=== PATIENT | female | born 1955 | race American Indian/Alaskan Native ===

== ENCOUNTER 2016-02-05 18:32 | Inpatient (IN) | payer MEDICARE ==
--- NOTE | 2016-02-05 18:51 | Emergency Department Report ---
ED General Adult HPI - General Chief complaint: Chest Pain Stated complaint: CHEST PAIN/WEAKNESS Time Seen by Provider: 02/05/16 18:47 Source: patient, EMS, RN notes reviewed, old records reviewed Mode of arrival: Stretcher Limitations: No Limitations - History of Present Illness Initial comments: This is a 60-year-old female, previously unknown to me. Has a history of nonischemic cardiomyopathy, cardiac defibrillator, end-stage renal disease on dialysis. Patient is brought to the hospital by EMS. Patient complains of chest pain. The chest pain is central. It radiates to the back. It is associated with shortness of breath. There is no vomiting. Patient also describes watery diarrhea. No irritative or obstructive urinary symptoms. The patient was seen and evaluated by cardiology for similar symptoms in the beginning of the month. They recommended no further ischemic workup, "in the absence of angina or chest pain." Patient also had an echocardiogram while she was in the hospital. -: Gradual Location: chest Consistency: intermittent Improves with: none Associated Symptoms: chest pain, cough, shortness of breath - Related Data Home Medications Medication Instructions Recorded Confirmed Last Taken Aspirin [Aspirin TAB] 325 mg PO DAILY 06/02/14 01/09/16 01/08/16 325 MG Carvedilol [Coreg] 25 mg PO BID 06/02/14 01/09/16 01/08/16 25 MG Lovastatin [Altoprev] 40 mg PO DAILY 06/02/14 01/09/16 01/08/16 40 MG Previous Rx's Medication Instructions Recorded Last Taken Type ISOSORBIDE MONOnitrate [Imdur ER] 60 mg PO QDAY #30 tablet 01/11/16 Unknown Rx Allergies Allergy/AdvReac Type Severity Reaction Status Date / Time No Known Allergies Allergy Verified 06/02/14 09:28 ED Review of Systems ROS: Stated complaint: CHEST PAIN/WEAKNESS Other details as noted in HPI Constitutional: malaise. denies: fever Eyes: denies: eye discharge ENT: denies: epistaxis Cardiovascular: chest pain Gastrointestinal: diarrhea Musculoskeletal: denies: back pain Skin: denies: lesions Neurological: denies: numbness Psychiatric: anxiety ED Past Medical Hx - Past Medical History Previous Medical History?: Yes Hx Hypertension: Yes Hx CVA: Yes (2013) Hx Congestive Heart Failure: Yes Hx Diabetes: Yes Hx Renal Disease: Yes (ESRD w/ HD ,,Thu) Hx Sickle Cell Disease: No Hx Asthma: Yes Hx COPD: No Hx Dementia: Yes Hx HIV: No - Surgical History Past Surgical History?: Yes Hx Internal Defibrillator: Yes Additional Surgical History: RUE A/V Graft. right arm surgery to attempt dialysis access, not successful - Social History Smoking Status: Never Smoker - Medications Home Medications: Home Medications Medication Instructions Recorded Confirmed Last Taken Type Aspirin [Aspirin TAB] 325 mg PO DAILY 06/02/14 01/09/16 01/08/16 History 325 MG Carvedilol [Coreg] 25 mg PO BID 06/02/14 01/09/16 01/08/16 History 25 MG Lovastatin [Altoprev] 40 mg PO DAILY 06/02/14 01/09/16 01/08/16 History 40 MG ISOSORBIDE MONOnitrate [Imdur ER] 60 mg PO QDAY #30 tablet 01/11/16 Unknown Rx ED Physical Exam - General Limitations: No Limitations General appearance: alert, in no apparent distress - Head Head exam: Present: atraumatic, normocephalic - Eye Eye exam: Present: normal appearance, EOMI. Absent: nystagmus - ENT ENT exam: Present: normal exam, normal orophraynx, mucous membranes moist - Neck Neck exam: Present: normal inspection, full ROM. Absent: tenderness, meningismus - Respiratory Respiratory exam: Present: normal lung sounds bilaterally. Absent: respiratory distress, wheezes, rales, rhonchi, stridor, chest wall tenderness - Cardiovascular Cardiovascular Exam: Present: regular rate, normal rhythm, normal heart sounds. Absent: bradycardia, tachycardia, irregular rhythm, systolic murmur, diastolic murmur, rubs, gallop - GI/Abdominal GI/Abdominal exam: Present: soft, normal bowel sounds. Absent: distended, tenderness, guarding, rebound, rigid, pulsatile mass - Extremities Exam Extremities exam: Present: normal inspection, full ROM, normal capillary refill , other (left upper extremity AV fistula, appropriate thrill.). Absent: tenderness, pedal edema, joint swelling, calf tenderness - Back Exam Back exam: Present: normal inspection, full ROM. Absent: tenderness, CVA tenderness (R), CVA tenderness (L), muscle spasm, paraspinal tenderness, vertebral tenderness - Neurological Exam Neurological exam: Present: alert, oriented X3, other (Extraocular movements intact. Tongue midline. No facial droop. Facial sensation intact to light touch in the V1, V2, V3 distribution bilaterally. 5 and 5 strength in 4 extremities.. Sensation is intact to light touch in 4 extremities.). Absent: motor sensory deficit - Psychiatric Psychiatric exam: Present: normal affect, normal mood - Skin Skin exam: Present: warm, dry, intact, normal color. Absent: rash ED Course Vital Signs 02/05/16 02/05/16 02/05/16 18:39 18:52 18:56 Temperature 98.7 F 99.3 F Pulse Rate 81 77 Respiratory 20 20 Rate Blood Pressure 162/118 Blood Pressure 241/100 [Left] O2 Sat by Pulse 98 98 98 Oximetry 02/05/16 02/05/16 02/05/16 19:00 19:34 19:53 Temperature Pulse Rate 78 80 Respiratory 21 30 H 20 Rate Blood Pressure 232/106 Blood Pressure [Left] O2 Sat by Pulse 98 97 98 Oximetry 02/05/16 02/05/16 02/05/16 20:50 21:00 22:00 Temperature Pulse Rate Respiratory Rate Blood Pressure 232/106 232/106 202/96 Blood Pressure [Left] O2 Sat by Pulse 97 97 98 Oximetry 02/05/16 02/05/16 02/05/16 22:03 22:07 22:09 Temperature Pulse Rate 80 80 72 Respiratory 18 Rate Blood Pressure 202/96 202/96 198/80 Blood Pressure [Left] O2 Sat by Pulse Oximetry 02/05/16 22:23 Temperature Pulse Rate 77 Respiratory Rate Blood Pressure 185/70 Blood Pressure [Left] O2 Sat by Pulse Oximetry - Reevaluation(s) Reevaluation #1: 02/05/16 22:08 Differential diagnosis: Acute coronary syndrome, GERD, gastritis, hypertensive urgency, pulmonary embolus, end-stage renal disease Assessment and plan: 60-year-old female who is hypertensive with chest pain, seen by cardiology for similar symptoms beginning of month. Apparently had "negative cath at [facility] in 2012." D-dimer is elevated. Patient was recently admitted to the hospital, therefore at risk for pulmonary embolus. Nuclear medicine study is pending. Hydralazine is ordered. Nitroglycerin glycerin assorted. Patient complains of diarrhea, which is similar to her prior complaints at the beginning of the month, however has not produced any diarrhea while in the emergency department thus far. Reevaluation #2: 02/05/16 22:21 Patient now states she has not had dialysis for over a week, and she reports that one of the reason she came to the ER to get dialysis. Her intermediate project manager is paged. She is still hypertensive. Labetalol ordered. Patient going to nuclear medicine study Reevaluation #3: 02/06/16 00:48 Nuclear medicine low probability study. Troponin chronic, most likely related to renal insufficiency. Aspirin ordered. Dr. Crandall accepts the patient to her service. ED Medical Decision Making - Lab Data Result diagrams: 02/05/16 20:44 02/05/16 20:44 Vital Signs 02/05/16 02/05/16 02/05/16 18:39 18:52 18:56 Temperature 98.7 F 99.3 F Pulse Rate 81 77 Respiratory 20 20 Rate Blood Pressure 162/118 Blood Pressure 241/100 [Left] O2 Sat by Pulse 98 98 98 Oximetry 02/05/16 02/05/16 19:00 19:53 Temperature Pulse Rate 78 Respiratory 21 20 Rate Blood Pressure 232/106 Blood Pressure [Left] O2 Sat by Pulse 98 98 Oximetry Lab Results 02/05/16 02/05/16 02/05/16 Range/Units 20:24 20:44 20:44 WBC 7.2 (4.5-11.0) K/mm3 RBC 3.75 (3.65-5.03) M/mm3 Hgb 9.9 L (10.1-14.3) gm/dl Hct 30.5 (30.3-42.9) % MCV 81 (79-97) fl MCH 26 L (28-32) pg MCHC 32 (30-34) % RDW 15.3 H (13.2-15.2) % Plt Count 128 L (140-440) K/mm3 Lymph % (Auto) 21.9 (13.4-35.0) % [place] % (Auto) 11.6 H (0.0-7.3) % Eos % (Auto) 5.3 H (0.0-4.3) % Baso % (Auto) 0.8 (0.0-1.8) % Lymph # 1.6 (1.2-5.4) K/mm3 [place] # 0.8 (0.0-0.8) K/mm3 Eos # 0.4 (0.0-0.4) K/mm3 Baso # 0.1 (0.0-0.1) K/mm3 Seg Neutrophils % 60.4 (40.0-70.0) % Seg Neutrophils # 4.3 (1.8-7.7) K/mm3 PT 14.1 (12.2-14.9) Sec. INR 1.10 (0.87-1.13) APTT 35.8 (24.2-36.6) Sec. D-Dimer 939.16 H (0-234) ng/mlDDU Sodium (137-145) mmol/L Potassium (3.6-5.0) mmol/L Chloride (98-107) mmol/L Carbon Dioxide (22-30) mmol/L Anion Gap mmol/L BUN (7-17) mg/dL Creatinine (0.7-1.2) mg/dL Estimated GFR ml/min BUN/Creatinine Ratio % Glucose (65-100) mg/dL Calcium (8.4-10.2) mg/dL Magnesium (1.7-2.3) mg/dL Total Bilirubin (0.1-1.2) mg/dL AST (5-40) units/L ALT (7-56) units/L Alkaline Phosphatase (35-129) units/L Troponin T (0.00-0.029) ng/mL NT-Pro-B Natriuret Pep (0-900) pg/mL Total Protein (6.3-8.2) g/dL Albumin (3.9-5) g/dL Albumin/Globulin Ratio % Triglycerides (2-149) mg/dL Cholesterol (50-199) mg/dL LDL Cholesterol Direct (50-130) mg/dL HDL Cholesterol (40-59) mg/dL Cholesterol/HDL Ratio % Urine Color Yellow (Yellow) Urine Turbidity Clear (Clear) Urine pH 6.0 (5.0-7.0) Ur Specific [place] 1.014 (1.003-1.030) Urine Protein 100 mg/dl (Negative) mg/dL Urine Glucose (UA) Neg (Negative) mg/dL Urine Ketones Neg (Negative) mg/dL Urine Blood Sm (Negative) Urine Nitrite Neg (Negative) Urine Bilirubin Neg (Negative) Urine Urobilinogen < 2.0 (<2.0) mg/dL Ur Leukocyte Esterase Neg (Negative) Urine WBC (Auto) 1.0 (0.0-6.0) /HPF Urine RBC (Auto) 2.0 (0.0-6.0) /HPF U Epithel Cells (Auto) 3.0 (0-13.0) /HPF 02/05/16 Range/Units 20:44 WBC (4.5-11.0) K/mm3 RBC (3.65-5.03) M/mm3 Hgb (10.1-14.3) gm/dl Hct (30.3-42.9) % MCV (79-97) fl MCH (28-32) pg MCHC (30-34) % RDW (13.2-15.2) % Plt Count (140-440) K/mm3 Lymph % (Auto) (13.4-35.0) % [place] % (Auto) (0.0-7.3) % Eos % (Auto) (0.0-4.3) % Baso % (Auto) (0.0-1.8) % Lymph # (1.2-5.4) K/mm3 [place] # (0.0-0.8) K/mm3 Eos # (0.0-0.4) K/mm3 Baso # (0.0-0.1) K/mm3 Seg Neutrophils % (40.0-70.0) % Seg Neutrophils # (1.8-7.7) K/mm3 PT (12.2-14.9) Sec. INR (0.87-1.13) APTT (24.2-36.6) Sec. D-Dimer (0-234) ng/mlDDU Sodium 142 (137-145) mmol/L Potassium 3.3 L (3.6-5.0) mmol/L Chloride 103.7 (98-107) mmol/L Carbon Dioxide 19 L (22-30) mmol/L Anion Gap 23 mmol/L BUN 55 H (7-17) mg/dL Creatinine 6.5 H (0.7-1.2) mg/dL Estimated GFR 8 ml/min BUN/Creatinine Ratio 8.46 % Glucose 90 (65-100) mg/dL Calcium 8.3 L (8.4-10.2) mg/dL Magnesium 2.0 (1.7-2.3) mg/dL Total Bilirubin 0.4 (0.1-1.2) mg/dL AST 20 (5-40) units/L ALT 16 (7-56) units/L Alkaline Phosphatase 105 (35-129) units/L Troponin T 0.077 H (0.00-0.029) ng/mL NT-Pro-B Natriuret Pep > 07826 H (0-900) pg/mL Total Protein 7.0 (6.3-8.2) g/dL Albumin 3.5 L (3.9-5) g/dL Albumin/Globulin Ratio 1.0 % Triglycerides 96 (2-149) mg/dL Cholesterol 135 (50-199) mg/dL LDL Cholesterol Direct 78 (50-130) mg/dL HDL Cholesterol 38 L (40-59) mg/dL Cholesterol/HDL Ratio 3.55 % Urine Color (Yellow) Urine Turbidity (Clear) Urine pH (5.0-7.0) Ur Specific [place] (1.003-1.030) Urine Protein (Negative) mg/dL Urine Glucose (UA) (Negative) mg/dL Urine Ketones (Negative) mg/dL Urine Blood (Negative) Urine Nitrite (Negative) Urine Bilirubin (Negative) Urine Urobilinogen (<2.0) mg/dL Ur Leukocyte Esterase (Negative) Urine WBC (Auto) (0.0-6.0) /HPF Urine RBC (Auto) (0.0-6.0) /HPF U Epithel Cells (Auto) (0-13.0) /HPF - EKG Data 02/05/16 22:10 normal sinus, 76 bpm, left axis deviation, prolonged QTC at 483 ms, motion artifact noted, abnormal EKG, not morphologically consistent with STEMI, nonspecific T-wave abnormalities. - Radiology Data Radiology results: image reviewed interpreted by me: One view chest x-ray demonstrates cardiomegaly, pulmonary vascular congestion, left-sided AICD device. Critical care attestation.: If time is entered above; I have spent that time in minutes in the direct care of this critically ill patient, excluding procedure time. ED Disposition Clinical Impression: ESRD (end stage renal disease), Elevated troponin Chest pain Qualifiers: Chest pain type: unspecified Qualified Code(s): R07.9 - Chest pain, unspecified Disposition: OP ADMITTED IP TO THIS HOSP Is pt being admited?: Yes Does the pt Need Aspirin: Yes Condition: Stable
[2016-02-05 20:46] LABS: Bilirubin,Urine NEG (Negative); Blood,Urine SM (Negative); Ketones,Urine NEG (Negative); Leukocyte Esterase,Urine NEG (Negative); Nitrite,Urine NEG (Negative); Urobilinogen,Urine < 2.0 mg/dL (<2.0)
[2016-02-05] MEDS ORDERED: TYLENOL PO ONE (20:57)
[2016-02-05 21:21] LABS: Basophils % (Auto) 0.8 % (0.0-1.8); Eosinophils % (Auto) 5.3 % (0.0-4.3); Hematocrit 30.5 % (30.3-42.9); Hemoglobin 9.9 gm/dl (10.1-14.3); Mean Corpuscular HGB Conc 32 % (30-34); Mean Corpuscular Hemoglobin 26 pg (28-32); Mean Corpuscular Volume 81 fl (79-97); Platelet Count 128 K/mm3 (140-440); Red Blood Count 3.75 M/mm3 (3.65-5.03); Red Cell Distribution Width 15.3 % (13.2-15.2); White Blood Count 7.2 K/mm3 (4.5-11.0)
[2016-02-05 21:31] LABS: INR 1.1 (0.87-1.13)
[2016-02-05] MEDS ORDERED: APRESOLINE IV ONE (21:31)
[2016-02-05 21:32] LABS: Partial Thromboplastin Time 35.8 Sec. (24.2-36.6)
[2016-02-05 21:38] LABS: Alanine Aminotransferase 16 units/L (7-56); Albumin 3.5 g/dL (3.9-5); Alkaline Phosphatase 105 units/L (35-129); BUN/Creatinine Ratio 8.46; Bilirubin,Total 0.4 mg/dL (0.1-1.2); Blood Urea Nitrogen 55 mg/dL (7-17); Calcium 8.3 mg/dL (8.4-10.2); Carbon Dioxide 19 mmol/L (22-30); Chloride 103.7 mmol/L (98-107); Glucose 90 mg/dL (65-100); Potassium 3.3 mmol/L (3.6-5.0); Sodium 142 mmol/L (137-145)
[2016-02-05 21:43] LABS: Anion Gap 23 mmol/L
[2016-02-05 22:01] LABS: Cholesterol 135 mg/dL (50-199); HDL Cholesterol 38 mg/dL (40-59); LDL Cholesterol,Direct 78 mg/dL (50-130); Triglycerides 96 mg/dL (2-149)
[2016-02-05] MEDS: NITROSTAT SL PRN ×2 (22:03→22:09)
[2016-02-05] MEDS ORDERED: NORMODYNE IV ONE ×2 (22:20)
[2016-02-05] MEDS ORDERED: NACL 0.9% 1000 ML 100 ML IV PRN (22:54)
--- NOTE | 2016-02-05 23:23 | Nuclear Medicine Report ---
FINAL REPORT PROCEDURE: NM LUNG SCAN PERF/VENT TECHNIQUE: Five mCi Tc-99m MAA was injected IV for pulmonary perfusion imaging in multiple projections. Fifteen mCi Xenon 133 gas was inhaled for pulmonary ventilation imaging in multiple projections. Injection site: RIGHT antecubital fossa. CPT 01695 HISTORY: Shortness of breath, chest pain, possible PE COMPARISON: Chest radiograph of the same date FINDINGS: Perfusion: No defects . Ventilation: No defects . IMPRESSION: Normal Examination
[2016-02-05] MEDS ORDERED: APRESOLINE IV PRN (23:45)
--- NOTE | 2016-02-06 | History and Physical Report ---
[id number] with a history of hypertension, diabetes, end-stage renal disease on dialysis Thursday, Thursday, Thursday, CHF, pulmonary hypertension comes to the emergency room with complaints of chest pain. Pain is in the anterior chest which she described as a sharp pain, intermittent in nature, intensity 6/10 lasting for one hour intermittently, radiating to the back. She admits to nausea, shortness of breath, no diaphoresis palpitation. Has been state that she has missed dialysis for quite a while probably a month, patient states that it's not that long Patient denies palpitation, diaphoresis cough, abdominal pain, hematochezia, dysuria, frequency, focal weakness, dysarthria, fever chills, polydipsia polyuria, hot or cold intolerance, easy bruisability, or rash or bleeding from mucosal membrane, rhinorrhea, epistaxis, earache, tinnitus, blurry vision, eye discharge, anxiety, depression. Other review of systems negative PAST SURGICAL HISTORY: AICD, AV fistula SOCIAL HISTORY: Denies alcohol, tobacco, drugs FAMILY HISTORY: Hypertension Medications and Allergies Allergies Allergy/AdvReac Type Severity Reaction Status Date / Time No Known Allergies Allergy Verified 06/02/14 09:28 Home Medications Medication Instructions Recorded Confirmed Last Taken Type Aspirin [Aspirin TAB] 325 mg PO DAILY 06/02/14 01/09/16 01/08/16 History 325 MG Carvedilol [Coreg] 25 mg PO BID 06/02/14 01/09/16 01/08/16 History 25 MG Lovastatin [Altoprev] 40 mg PO DAILY 06/02/14 01/09/16 01/08/16 History 40 MG ISOSORBIDE MONOnitrate [Imdur ER] 60 mg PO QDAY #30 tablet 01/11/16 Unknown Rx Lisinopril [Zestril TAB] 40 mg PO QDAY #30 tablet 02/08/16 Unknown Rx NIFEdipine XL [Procardia Xl] 60 mg PO QDAY #30 tablet 02/08/16 Unknown Rx Active Meds: Active Medications Epoetin Michael (Procrit) 10,000 unit IV NAOMI PRN PRN Reason: hemodialysis Hydralazine HCl (Apresoline) 5 mg IV Q6HR PRN PRN Reason: Hypertension Sodium Chloride (Nacl 0.9% 1000 Ml) 100 mls @ 999 mls/hr IV NAOMI PRN PRN Reason: Hypotension Nitroglycerin (Nitrostat) 0.4 mg SL .Q5MIN PRN PRN Reason: Chest Pain Last Admin: 02/05/16 22:09 Dose: 0.4 mg Exam - Physical Exam Narrative exam: Gen. appearance: Patient lying in bed, no apparent distress HEENT: Normocephalic, atraumatic, pupils equally round and reactive to light, extraocular movement intact, and no sclericterus,. No JVD or thyromegaly or nodule,neck supple, no carotid bruit ,mucous membranes moist, no exudate or erythema Heart: S1, S2, regular rate and rhythm Lungs: Clear to auscultation bilaterally, breathing comfortable Abdomen: Positive bowel sounds, nontender, nondistended, no organomegaly Extremity: No edema, cyanosis, clubbing Skin: No rash, nodules, warm, dry Neuro: Oriented 3, cranial nerves II-12 intact, speech is fluent, motor and sensory intact - Constitutional Vitals: Temp Pulse Resp BP Pulse Ox 99.3 F 77 18 185/70 98 02/05/16 18:56 02/05/16 22:23 02/05/16 22:07 02/05/16 22:23 02/05/16 22:00 Results - Labs CBC & Chem 7: 02/11/16 04:51 02/11/16 04:51 Labs: Abnormal lab results 02/05/16 02/05/16 02/05/16 Range/Units 20:44 20:44 20:44 Hgb 9.9 L (10.1-14.3) gm/dl MCH 26 L (28-32) pg RDW 15.3 H (13.2-15.2) % Plt Count 128 L (140-440) K/mm3 [place] % (Auto) 11.6 H (0.0-7.3) % Eos % (Auto) 5.3 H (0.0-4.3) % D-Dimer 939.16 H (0-234) ng/mlDDU Potassium 3.3 L (3.6-5.0) mmol/L Carbon Dioxide 19 L (22-30) mmol/L BUN 55 H (7-17) mg/dL Creatinine 6.5 H (0.7-1.2) mg/dL Calcium 8.3 L (8.4-10.2) mg/dL Troponin T 0.077 H (0.00-0.029) ng/mL NT-Pro-B Natriuret Pep > 93964 H (0-900) pg/mL Albumin 3.5 L (3.9-5) g/dL HDL Cholesterol 38 L (40-59) mg/dL - Imaging and Cardiology EKG: image reviewed (normal sinus rhythm, 88, read by me) Chest x-ray: image reviewed (nad, readb by me) Assessment and Plan VQ scan normal Hypertensive urgency Fluid overload secondary to missed hemodialysis Chest pain probably secondary to #1 Diabetes type 2 End-stage renal disease on dialysis CHF Thrombocytopenia Admits medicine Start IV hydralazine, first dose now Consult renal for dialysis Check cardiac enzymes, stress test Check fingersticks and initiate insulin sliding scale DVT prophylaxis with SCD
--- NOTE | 2016-02-06 01:34 | Admit Criteria Form ---
Admission Criteria Documentation: RENAL FAILURE, CHRONIC Clinical Indications for Admission to Inpatient Care (Place 'X' for any and all applicable criteria): Admission is indicated for ANY ONE of the following (1)(2)(3)(4)(5): [X ]I. Inpatient admission required rather than observation care (Use Renal Failure, Chronic: Observation Care Criteria as appropriate) because of ANY ONE of the following: [X ]a) Volume overload or uremic symptoms (eg, clinically significant pulmonary edema, hypertension, pericarditis, acidosis) too severe for, or not responsive (eg, for over 24 hours) to emergency department or observation care dialysis or treatment regimen (11) [ ]b) Hemodynamic instability that is severe or persistent [ ]c) Respiratory distress that is severe or persistent (11) [ ]d) Clinically significant electrolyte abnormality that requires inpatient care (eg,hyperkalemia with severe ECG findings)[B] [ ]e) Supplement O2 or respiratory therapy for over 24hrs that is performable only in acute inpatient setting [ ]f) Continuous IV infusion of anticoagulation, platelet inhibitor, vasoactive, or Antiarrhythmic medication (15), [ ]g) Pulmonary artery catheter monitoring [ ]h) Temporary pacemaker placement [ ]i) Emergent pericardiocentesis [ ]j) Other condition, treatment or monitoring requiring inpatient admission [ ]II. Unexplained syncope [A] [ ]III. Recurrent seizures [ ]IV. Severe infections not treatable in outpatient setting (eg, peritonitis)(9 ) [ ]V. Cardiac arrhythmias of immediate concern [ ]. Encephalopathy [ ]VII.Bleeding abnormalities (eg, platelet dysfunction) with active (eg, gastrointestinal) bleeding Extended stay beyond goal length of stay may be needed for (3)(4)(35)(36): [ ]a) Continuing uremic complications [ ]b) Comorbidities or complications The original [employer] content created by [employer] has been revised. The portions of the content which have been revised are identified through the use of italic text or in bold, and [employer] has neither reviewed nor approved the modified material. All other unmodified content is copyright [employer]. Please see references footnoted in the original [employer] edition 2016 Admission Criteria Met: Yes
[2016-02-06] MEDS ORDERED: TYLENOL PO PRN (02:22)
[2016-02-06] MEDS ORDERED: ZOFRAN IV PRN (02:22)
[2016-02-06] MEDS ORDERED: MORPHINE IV PRN (02:22)
[2016-02-06] MEDS ORDERED: D50W (25GM) IV PRN (02:22)
[2016-02-06] MEDS ORDERED: DULCOLAX PR PRN (02:22)
[2016-02-06] MEDS ORDERED: SODIUM CHLORIDE FLUSH SYRINGE 10 ML IV PRN (02:22)
[2016-02-06 05:56] LABS: Basophils % (Auto) 0.7 % (0.0-1.8); Eosinophils % (Auto) 6.1 % (0.0-4.3); Hematocrit 32.3 % (30.3-42.9); Hemoglobin 10.3 gm/dl (10.1-14.3); Mean Corpuscular HGB Conc 32 % (30-34); Mean Corpuscular Hemoglobin 26 pg (28-32); Mean Corpuscular Volume 81 fl (79-97); Platelet Count 130 K/mm3 (140-440); Red Blood Count 3.97 M/mm3 (3.65-5.03); Red Cell Distribution Width 15.5 % (13.2-15.2); White Blood Count 6.7 K/mm3 (4.5-11.0)
[2016-02-06 06:17] LABS: BUN/Creatinine Ratio 8.28; Calcium 8.4 mg/dL (8.4-10.2); Potassium 3.1 mmol/L (3.6-5.0)
--- NOTE | 2016-02-06 06:44 | Consultation ---
History of Present Illness - Reason for Consult Consult date: 02/06/16 end stage renal disease Requesting physician: ZOIE DAVIES - History of Present Illness 60-year-old woman with a history of hypertension, diabetes, end-stage renal disease on dialysis Thursday, Thursday, Thursday, CHF, pulmonary hypertension comes to the emergency room with complaints of chest pain. Pain is in the anterior chest which she described as a sharp pain, intermittent in nature, intensity 6/10 lasting for one hour intermittently, radiating to the back. She admits to nausea, shortness of breath, no diaphoresis palpitation. Has been state that she has missed dialysis for quite a while probably a month, patient states that it's not that long Patient denies palpitation, diaphoresis cough, abdominal pain, hematochezia, dysuria, frequency, focal weakness, dysarthria, fever chills, polydipsia polyuria, hot or cold intolerance, easy bruisability, or rash or bleeding from mucosal membrane, rhinorrhea, epistaxis, earache, tinnitus, blurry vision, eye discharge, anxiety, depression. Other review of systems negative Past History Past Medical History: arrhythmia, dialysis, ESRD, heart failure, hypertension, hyperlipidemia, renal failure Past Surgical History: Other (aicd, av fistula) Social history: lives with family. denies: IV drug use Family history: hypertension Medications and Allergies Allergies Allergy/AdvReac Type Severity Reaction Status Date / Time No Known Allergies Allergy Verified 06/02/14 09:28 Home Medications Medication Instructions Recorded Confirmed Last Taken Type Aspirin [Aspirin TAB] 325 mg PO DAILY 06/02/14 01/09/16 01/08/16 History 325 MG Carvedilol [Coreg] 25 mg PO BID 06/02/14 01/09/16 01/08/16 History 25 MG Lovastatin [Altoprev] 40 mg PO DAILY 06/02/14 01/09/16 01/08/16 History 40 MG ISOSORBIDE MONOnitrate [Imdur ER] 60 mg PO QDAY #30 tablet 01/11/16 Unknown Rx Active Meds: Active Medications Acetaminophen (Tylenol) 650 mg PO Q4H PRN PRN Reason: Pain MILD(1-3)/Fever >100.5/GROVE Aspirin (Aspirin) 325 mg PO DAILY ABDIEL Bisacodyl (Dulcolax) 10 mg NE QDAY PRN PRN Reason: Constipation unrelieved by MOM Carvedilol (Coreg) 25 mg PO BID ABDIEL Dextrose (D50w (25gm)) 50 ml IV PRN PRN PRN Reason: Hypoglycemia Epoetin Michael (Procrit) 10,000 unit IV NAOMI PRN PRN Reason: hemodialysis Hydralazine HCl (Apresoline) 5 mg IV Q6HR PRN PRN Reason: Hypertension Sodium Chloride (Nacl 0.9% 1000 Ml) 100 mls @ 999 mls/hr IV NAOMI PRN PRN Reason: Hypotension Influenza Virus Vaccine Quadrival (Fluarix Quad [id number](36 Mos+)) 60 mcg IM .ONCE ONE Stop: 02/06/16 12:01 Insulin Aspart (Novolog) 0 units SUB-Q ACHS ABDIEL PRN Reason: Protocol Isosorbide Mononitrate (Imdur) 60 mg PO QDAY [facility] Miscellaneous Medication (Lovastatin [Altoprev]) 40 mg PO DAILY [facility] Morphine Sulfate (Morphine) 2 mg IV Q4H PRN PRN Reason: Pain, Moderate (4-6) Nitroglycerin (Nitrostat) 0.4 mg SL .Q5MIN PRN PRN Reason: Chest Pain Last Admin: 02/05/16 22:09 Dose: 0.4 mg Ondansetron HCl (Zofran) 4 mg IV Q8H PRN PRN Reason: N/V unrelieved by Reglan Pneumococcal Polyvalent Vaccine (Pneumovax 23) 0.5 ml IM .ONCE ONE Stop: 02/06/16 12:01 Sodium Chloride (Sodium Chloride Flush Syringe 10 Ml) 10 ml IV PRN PRN PRN Reason: LINE FLUSH Review of Systems Constitutional: fatigue, weakness, malaise Cardiovascular: chest pain, orthopnea, shortness of breath Respiratory: shortness of breath, dyspnea on exertion Exam - Vital Signs Vital signs: Vital Signs Temp Pulse Resp BP Pulse Ox 98.7 F 81 20 162/118 98 02/05/16 18:39 02/05/16 18:39 02/05/16 18:39 02/05/16 18:39 02/05/16 18:39 - Physical Exam Narrative exam: Gen. appearance: Patient lying in bed, no apparent distress HEENT: Normocephalic, atraumatic, pupils equally round and reactive to light, extraocular movement intact, and no sclericterus,. No JVD or thyromegaly or nodule,neck supple, no carotid bruit ,mucous membranes moist, no exudate or erythema Heart: S1, S2, regular rate and rhythm Lungs: Clear to auscultation bilaterally, breathing comfortable Abdomen: Positive bowel sounds, nontender, nondistended, no organomegaly Extremity: No edema, cyanosis, clubbing Skin: No rash, nodules, warm, dry Neuro: Oriented 3, cranial nerves II-12 intact, speech is fluent, motor and sensory intact Results - Lab Results 02/06/16 05:00 02/06/16 05:00 Most recent lab results Calcium 8.4 mg/dL (8.4-10.2) 02/06/16 05:00 Magnesium 2.0 mg/dL (1.7-2.3) 02/05/16 20:44 Assessment and Plan Impression * End-stage renal disease on maintenance hemodialysis * Chest pain * Accelerated Hypertension * Diabetes * History of congestive heart failure * Anemia secondary to ESRD Recommendations * may need transfer to icu with cardene gtt if present bps continue * Shall schedule patient for hemodialysis today * Her outpatient dialysis days are Mondays, Wednesdays and Fridays * Adjust diet and meds for ESRD state * Procrit with dialysis * Patient's potassium is noted to be low today. Shall use a higher potassium bath for hemodialysis * No IV, BP or venipuncture in his access arm * Thank you very much for the consultation. Shall follow along with you
[2016-02-06 07:02] LABS: Creatine Kinase MB 2.5 ng/mL (0.0-4.0)
[2016-02-06] MEDS: NOVOLOG SUB-Q SCH ×2 (08:05→22:00)
--- NOTE | 2016-02-06 09:14 | Progress Note ---
Assessment and Plan Assessment and plan: 1. Chest pain serial trops negative VQ scan negative fup stress test 2. Accelerated HTN added nifedipine and lisinopril, better controlled now 3. ESRD HD per renal case management to establish outpatient HD chair time 4. DM acceptable control, continue insulins History Interval history: chest pain is now resolved, she admits that she self stopped HD for one month, and during the last week started having CP and SOB Hospitalist Physical - Constitutional Vitals: Temp Pulse Resp BP Pulse Ox 98.4 F 71 20 217/93 95 02/06/16 07:35 02/06/16 07:35 02/06/16 07:35 02/06/16 07:35 02/06/16 07:35 General appearance: Present: no acute distress - EENT Eyes: Present: PERRL, EOM intact ENT: hearing intact, clear oral mucosa - Neck Neck: Present: supple, normal ROM - Respiratory Respiratory effort: normal Respiratory: bilateral: CTA - Cardiovascular Rhythm: regular Heart Sounds: Present: S1 & S2 - Extremities Extremities: no ischemia, pulses intact - Abdominal General gastrointestinal: soft, non-tender, tender, non-distended - Integumentary Integumentary: Present: clear, warm Results - Labs CBC & Chem 7: 02/08/16 06:29 02/08/16 06:29 Labs: Laboratory Last Values WBC 6.7 K/mm3 (4.5-11.0) 02/06/16 05:00 RBC 3.97 M/mm3 (3.65-5.03) 02/06/16 05:00 Hgb 10.3 gm/dl (10.1-14.3) 02/06/16 05:00 Hct 32.3 % (30.3-42.9) 02/06/16 05:00 MCV 81 fl (79-97) 02/06/16 05:00 MCH 26 pg (28-32) L 02/06/16 05:00 MCHC 32 % (30-34) 02/06/16 05:00 RDW 15.5 % (13.2-15.2) H 02/06/16 05:00 Plt Count 130 K/mm3 (140-440) L 02/06/16 05:00 Lymph % (Auto) 23.1 % (13.4-35.0) 02/06/16 05:00 [place] % (Auto) 12.2 % (0.0-7.3) H 02/06/16 05:00 Eos % (Auto) 6.1 % (0.0-4.3) H 02/06/16 05:00 Baso % (Auto) 0.7 % (0.0-1.8) 02/06/16 05:00 Lymph # 1.5 K/mm3 (1.2-5.4) 02/06/16 05:00 [place] # 0.8 K/mm3 (0.0-0.8) 02/06/16 05:00 Eos # 0.4 K/mm3 (0.0-0.4) 02/06/16 05:00 Baso # 0.0 K/mm3 (0.0-0.1) 02/06/16 05:00 Seg Neutrophils % 57.9 % (40.0-70.0) 02/06/16 05:00 Seg Neutrophils # 3.9 K/mm3 (1.8-7.7) 02/06/16 05:00 PT 14.1 Sec. (12.2-14.9) 02/05/16 20:44 INR 1.10 (0.87-1.13) 02/05/16 20:44 APTT 35.8 Sec. (24.2-36.6) 02/05/16 20:44 D-Dimer 939.16 ng/mlDDU (0-234) H 02/05/16 20:44 Sodium 143 mmol/L (137-145) 02/06/16 05:00 Potassium 3.1 mmol/L (3.6-5.0) L 02/06/16 05:00 Chloride 105.0 mmol/L (98-107) 02/06/16 05:00 Carbon Dioxide 19 mmol/L (22-30) L 02/06/16 05:00 Anion Gap 22 mmol/L 02/06/16 05:00 BUN 53 mg/dL (7-17) H 02/06/16 05:00 Creatinine 6.4 mg/dL (0.7-1.2) H 02/06/16 05:00 Estimated GFR 8 ml/min 02/06/16 05:00 BUN/Creatinine Ratio 8.28 % 02/06/16 05:00 Glucose 108 mg/dL (65-100) H 02/06/16 05:00 POC Glucose 110 (70-105) H 02/06/16 08:12 Calcium 8.4 mg/dL (8.4-10.2) 02/06/16 05:00 Magnesium 2.0 mg/dL (1.7-2.3) 02/05/16 20:44 Total Bilirubin 0.4 mg/dL (0.1-1.2) 02/05/16 20:44 AST 20 units/L (5-40) 02/05/16 20:44 ALT 16 units/L (7-56) 02/05/16 20:44 Alkaline Phosphatase 105 units/L (35-129) 02/05/16 20:44 Total Creatine Kinase 74 units/L (30-135) 02/06/16 05:00 CK-MB (CK-2) 2.5 ng/mL (0.0-4.0) 02/06/16 05:00 CK-MB (CK-2) Rel Index 3.3 (0-4) 02/06/16 05:00 Troponin T 0.072 ng/mL (0.00-0.029) H 02/06/16 05:00 NT-Pro-B Natriuret Pep > 72383 pg/mL (0-900) H 02/05/16 20:44 Total Protein 7.0 g/dL (6.3-8.2) 02/05/16 20:44 Albumin 3.5 g/dL (3.9-5) L 02/05/16 20:44 Albumin/Globulin Ratio 1.0 % 02/05/16 20:44 Triglycerides 96 mg/dL (2-149) 02/05/16 20:44 Cholesterol 135 mg/dL (50-199) 02/05/16 20:44 LDL Cholesterol Direct 78 mg/dL (50-130) 02/05/16 20:44 HDL Cholesterol 38 mg/dL (40-59) L 02/05/16 20:44 Cholesterol/HDL Ratio 3.55 % 02/05/16 20:44 Urine Color Yellow (Yellow) 02/05/16 20:24 Urine Turbidity Clear (Clear) 02/05/16 20:24 Urine pH 6.0 (5.0-7.0) 02/05/16 20:24 Ur Specific [place] 1.014 (1.003-1.030) 02/05/16 20:24 Urine Protein 100 mg/dl mg/dL (Negative) 02/05/16 20:24 Urine Glucose (UA) Neg mg/dL (Negative) 02/05/16 20:24 Urine Ketones Neg mg/dL (Negative) 02/05/16 20:24 Urine Blood Sm (Negative) 02/05/16 20:24 Urine Nitrite Neg (Negative) 02/05/16 20:24 Urine Bilirubin Neg (Negative) 02/05/16 20:24 Urine Urobilinogen < 2.0 mg/dL (<2.0) 02/05/16 20:24 Ur Leukocyte Esterase Neg (Negative) 02/05/16 20:24 Urine WBC (Auto) 1.0 /HPF (0.0-6.0) 02/05/16 20:24 Urine RBC (Auto) 2.0 /HPF (0.0-6.0) 02/05/16 20:24 U Epithel Cells (Auto) 3.0 /HPF (0-13.0) 02/05/16 20:24
[2016-02-06] MEDS ORDERED: LOVENOX SUB-Q SCH (10:00)
[2016-02-06] MEDS ORDERED: NON-FORMULARY (Lovastatin [Altoprev] 40 MG) PO SCH (10:00)
[2016-02-06] MEDS ORDERED: BABY ASPIRIN PO SCH ×2 (10:00)
[2016-02-06] MEDS: ASPIRIN PO SCH (10:05)
[2016-02-06] MEDS: IMDUR PO SCH ×2 (10:06→21:22)
[2016-02-06] MEDS: COREG PO SCH ×2 (10:06→21:22)
[2016-02-06] MEDS: PROCARDIA XL PO SCH ×2 (10:06→21:22)
[2016-02-06] MEDS: ZESTRIL PO SCH ×2 (10:07→21:22)
--- NOTE | 2016-02-06 10:48 | XRay Report ---
PORTABLE CHEST: INDICATION: Chest pain. COMPARISON: 01/09/2016 FINDINGS: Portable, frontal chest radiograph again demonstrates [id number] cardiomegaly, aortic knob calcifications, left AICD with single ventricular lead, EKG leads and demineralized bones with few degenerative changes. Slight increased bronchovascular prominence centrally without large pleural effusions or CHF. Minimal fluid or thickening along the right minor fissure may also now be noted. CONCLUSION: Very minimal/early fluid overload may be developing without evidence of CHF. Cardiomegaly again noted. Please also correlate clinically. Thank you for the opportunity to participate in this patient's care.
[2016-02-06 11:21] LABS: Creatine Kinase MB 2.8 ng/mL (0.0-4.0)
[2016-02-06] MEDS ORDERED: FLUARIX QUAD 2016-2017(36 MOS+) IM ONE (12:00)
[2016-02-06] MEDS ORDERED: PNEUMOVAX 23 IM ONE (12:00)
[2016-02-06] MEDS ORDERED: NACL 0.9 (PRIMING MACHINE ONLY DIALYSIS) MC ONE (16:55)
[2016-02-06] MEDS: PROCRIT IV PRN (17:15)
[2016-02-06] MEDS: ZOCOR PO SCH (21:22)
[2016-02-06] MEDS ORDERED: APRESOLINE IV ONE (22:23)
[2016-02-07 06:36] LABS: Basophils % (Auto) 0.4 % (0.0-1.8); Eosinophils % (Auto) 1.6 % (0.0-4.3); Hematocrit 31.2 % (30.3-42.9); Mean Corpuscular HGB Conc 32 % (30-34); Mean Corpuscular Volume 80 fl (79-97); Platelet Count 126 K/mm3 (140-440); Red Blood Count 3.91 M/mm3 (3.65-5.03); Red Cell Distribution Width 15.3 % (13.2-15.2); White Blood Count 8.5 K/mm3 (4.5-11.0)
[2016-02-07 06:38] LABS: Mean Corpuscular Hemoglobin 26 pg (28-32)
[2016-02-07 06:48] LABS: BUN/Creatinine Ratio 6.74; Calcium 8.3 mg/dL (8.4-10.2); Chloride 99.9 mmol/L (98-107); Potassium 3.5 mmol/L (3.6-5.0)
[2016-02-07] MEDS ORDERED: LEXISCAN IV ONE (10:10)
--- NOTE | 2016-02-07 11:16 | Progress Note ---
Assessment and Plan Impression * End-stage renal disease on maintenance hemodialysis * Chest pain * Accelerated Hypertension * Diabetes * History of congestive heart failure * Anemia secondary to ESRD Recommendations * Continue HD MWF * Adjust diet and meds for ESRD state * Procrit with dialysis * No IV, BP or venipuncture in his access arm * Per family member, patient did not have dialysis for appx 30 days. Patient reports [facility] as her dialysis clinic; contacted clinic - patient has been discharged from [facility] - "lost to follow up". Discussed with CM re: need for outpatient HD placement Subjective Date of service: 02/07/16 Interval history: Patient c/o cough Objective - Vital Signs Vital signs: Vital Signs - 12hr 02/07/16 02/07/16 02/07/16 01:08 05:26 08:00 Temperature 98.8 F 97.9 F 98.5 F Pulse Rate Pulse Rate [ 70 75 73 Left Posterior Tibial] Respiratory 20 20 Rate Blood Pressure Blood Pressure 133/63 121/59 158/76 [Left Radial Artery] O2 Sat by Pulse 97 94 96 Oximetry 02/07/16 02/07/16 02/07/16 10:25 10:26 10:27 Temperature Pulse Rate 72 94 H 94 H Pulse Rate [ Left Posterior Tibial] Respiratory Rate Blood Pressure 184/117 182/76 171/76 Blood Pressure [Left Radial Artery] O2 Sat by Pulse Oximetry 02/07/16 02/07/16 02/07/16 10:28 10:29 10:30 Temperature Pulse Rate 100 H 100 H 89 Pulse Rate [ Left Posterior Tibial] Respiratory Rate Blood Pressure 174/81 171/76 173/76 Blood Pressure [Left Radial Artery] O2 Sat by Pulse Oximetry 02/07/16 10:31 Temperature Pulse Rate 93 H Pulse Rate [ Left Posterior Tibial] Respiratory Rate Blood Pressure 179/74 Blood Pressure [Left Radial Artery] O2 Sat by Pulse Oximetry - General Appearance General appearance: well-developed, well-nourished EENT: ATNC Respiratory: Present: Clear to Ascultation Cardiology: regular, S1S2 Gastrointestinal: normal, no tenderness, no distended Integumentary: no rash Musculoskeletal: other (no edema) Psychiatric: cooperative - Lab 02/07/16 05:27 02/07/16 05:27 Most recent lab results Calcium 8.3 mg/dL (8.4-10.2) L 02/07/16 05:27 Magnesium 2.0 mg/dL (1.7-2.3) 02/05/16 20:44
[2016-02-07] MEDS ORDERED: TYLENOL ONE (11:20)
[2016-02-07] MEDS ORDERED: FLUARIX QUAD 2016-2017(36 MOS+) IM ONE (12:00)
[2016-02-07] MEDS ORDERED: PNEUMOVAX 23 IM ONE (12:00)
[2016-02-07] MEDS ORDERED: PROCARDIA XL PO ONE (12:16)
[2016-02-07] MEDS: ASPIRIN PO SCH (12:32)
[2016-02-07] MEDS: IMDUR PO SCH (12:33)
[2016-02-07] MEDS: COREG PO SCH ×2 (12:33→21:25)
[2016-02-07] MEDS: ZESTRIL PO SCH (12:34)
[2016-02-07] MEDS: NOVOLOG SUB-Q SCH ×4 (12:36→21:49)
[2016-02-07 17:03] LABS: Alanine Aminotransferase 13 units/L (7-56); Albumin 3.6 g/dL (3.9-5); Albumin/Globulin Ratio 1.1 %; Alkaline Phosphatase 92 units/L (35-129); Bilirubin,Total 0.5 mg/dL (0.1-1.2)
[2016-02-07 17:10] LABS: Bilirubin,Direct < 0.2 mg/dL (0-0.2); Bilirubin,Indirect 0.3 mg/dL
[2016-02-07] MEDS: ZOCOR PO SCH (21:24)
--- NOTE | 2016-02-07 21:34 | Treadmill Report ---
THALLIUM STRESS TEST LEFT VENTRICLE: Left ventricular chamber size is within normal. Perfusion study demonstrates homogeneous uptake of the tracer in all segments, no significant defects identified. Gated analysis demonstrates normal left ventricular systolic function, ejection fraction 54%. CONCLUSION: Normal myocardial perfusion study. JOB# [id number] CA/NTS
[2016-02-08 07:31] LABS: Basophils % (Auto) 0.3 % (0.0-1.8); Eosinophils % (Auto) 3.3 % (0.0-4.3); Hematocrit 30.6 % (30.3-42.9); Hemoglobin 9.7 gm/dl (10.1-14.3); Mean Corpuscular HGB Conc 32 % (30-34); Mean Corpuscular Volume 82 fl (79-97); Platelet Count 133 K/mm3 (140-440); Red Blood Count 3.75 M/mm3 (3.65-5.03); Red Cell Distribution Width 15.4 % (13.2-15.2); White Blood Count 9.1 K/mm3 (4.5-11.0)
[2016-02-08 07:36] LABS: Mean Corpuscular Hemoglobin 26 pg (28-32)
[2016-02-08 07:53] LABS: BUN/Creatinine Ratio 6.27; Calcium 8.1 mg/dL (8.4-10.2); Potassium 3.3 mmol/L (3.6-5.0)
--- NOTE | 2016-02-08 08:43 | Progress Note ---
Assessment and Plan Impression * End-stage renal disease on maintenance hemodialysis * Chest pain * Accelerated Hypertension * Diabetes * History of congestive heart failure * Anemia secondary to ESRD Recommendations * Dialysis q Mondays, Wednesdays and Fridays * Adjust diet and meds for ESRD state * Procrit with dialysis * No IV, BP or venipuncture in his access arm * will need outpatient dialysis placement * stress compliance with dialysis Subjective Date of service: 02/08/16 Principal diagnosis: esrd Interval history: resting well in bed today Objective - Exam Narrative Exam: Gen. appearance: Patient lying in bed, no apparent distress HEENT: Normocephalic, atraumatic, pupils equally round and reactive to light, extraocular movement intact, and no sclericterus,. No JVD or thyromegaly or nodule,neck supple, no carotid bruit ,mucous membranes moist, no exudate or erythema Heart: S1, S2, regular rate and rhythm Lungs: Clear to auscultation bilaterally, breathing comfortable Abdomen: Positive bowel sounds, nontender, nondistended, no organomegaly Extremity: No edema, cyanosis, clubbing Skin: No rash, nodules, warm, dry Neuro: Oriented 3, cranial nerves II-12 intact, speech is fluent, motor and sensory intact - Vital Signs Vital signs: Vital Signs - 12hr 02/07/16 02/08/16 02/08/16 22:00 00:25 04:30 Temperature 98.9 F 97.7 F Pulse Rate 70 Pulse Rate [ 54 L 73 Left Posterior Tibial] Respiratory 20 20 Rate Blood Pressure 119/68 141/63 [Left Radial Artery] O2 Sat by Pulse 92 99 Oximetry - Lab 02/08/16 06:29 02/08/16 06:29 Most recent lab results Calcium 8.1 mg/dL (8.4-10.2) L 02/08/16 06:29 Magnesium 2.0 mg/dL (1.7-2.3) 02/05/16 20:44
[2016-02-08] MEDS: NOVOLOG SUB-Q SCH ×4 (09:50→22:00)
--- NOTE | 2016-02-08 10:38 | Progress Note ---
Assessment and Plan Assessment and plan: 1. Chest pain serial trops negative VQ scan negative stress test negative 2. Accelerated HTN added nifedipine and lisinopril, better controlled now 3. ESRD HD per renal case management to establish outpatient HD chair time 4. DM acceptable control, continue insulins History Interval history: chest pain is now resolved, she admits that she self stopped HD for one month, and during the last week started having CP and SOB Hospitalist Physical - Constitutional Vitals: Temp Pulse Resp BP Pulse Ox 98.1 F 76 20 156/70 94 02/08/16 07:25 02/08/16 07:25 02/08/16 07:25 02/08/16 07:25 02/08/16 07:25 General appearance: Present: no acute distress - EENT Eyes: Present: PERRL, EOM intact ENT: hearing intact, clear oral mucosa - Neck Neck: Present: supple, normal ROM - Respiratory Respiratory: bilateral: CTA - Cardiovascular Rhythm: regular Heart Sounds: Present: S1 & S2 - Extremities Extremities: no ischemia - Abdominal General gastrointestinal: soft, non-tender, tender - Integumentary Integumentary: Present: clear, warm - Psychiatric Psychiatric: appropriate mood/affect - Neurologic Neurologic: CNII-XII intact, no focal deficits Results - Labs CBC & Chem 7: 02/08/16 06:29 02/08/16 06:29 Labs: Laboratory Last Values WBC 9.1 K/mm3 (4.5-11.0) 02/08/16 06:29 RBC 3.75 M/mm3 (3.65-5.03) 02/08/16 06:29 Hgb 9.7 gm/dl (10.1-14.3) L 02/08/16 06:29 Hct 30.6 % (30.3-42.9) 02/08/16 06:29 MCV 82 fl (79-97) 02/08/16 06:29 MCH 26 pg (28-32) L 02/08/16 06:29 MCHC 32 % (30-34) 02/08/16 06:29 RDW 15.4 % (13.2-15.2) H 02/08/16 06:29 Plt Count 133 K/mm3 (140-440) L 02/08/16 06:29 Lymph % (Auto) 23.2 % (13.4-35.0) 02/08/16 06:29 [place] % (Auto) 12.4 % (0.0-7.3) H 02/08/16 06:29 Eos % (Auto) 3.3 % (0.0-4.3) 02/08/16 06:29 Baso % (Auto) 0.3 % (0.0-1.8) 02/08/16 06:29 Lymph # 2.1 K/mm3 (1.2-5.4) 02/08/16 06:29 [place] # 1.1 K/mm3 (0.0-0.8) H 02/08/16 06:29 Eos # 0.3 K/mm3 (0.0-0.4) 02/08/16 06:29 Baso # 0.0 K/mm3 (0.0-0.1) 02/08/16 06:29 Seg Neutrophils % 60.8 % (40.0-70.0) 02/08/16 06: Seg Neutrophils # 5.5 K/mm3 (1.8-7.7) 02/08/16 06:29 PT 14.1 Sec. (12.2-14.9) 02/05/16 20:44 INR 1.10 (0.87-1.13) 02/05/16 20:44 APTT 35.8 Sec. (24.2-36.6) 02/05/16 20:44 D-Dimer 939.16 ng/mlDDU (0-234) H 02/05/16 20:44 Sodium 142 mmol/L (137-145) 02/08/16 06:29 Potassium 3.3 mmol/L (3.6-5.0) L 02/08/16 06:29 Chloride 101.0 mmol/L (98-107) 02/08/16 06:29 Carbon Dioxide 24 mmol/L (22-30) 02/08/16 06:29 Anion Gap 20 mmol/L 02/08/16 06:29 BUN 37 mg/dL (7-17) H 02/08/16 06:29 Creatinine 5.9 mg/dL (0.7-1.2) H 02/08/16 06:29 Estimated GFR 9 ml/min 02/08/16 06:29 BUN/Creatinine Ratio 6.27 % 02/08/16 06:29 Glucose 91 mg/dL (65-100) 02/08/16 06:29 POC Glucose 187 (70-105) H 02/07/16 21:28 Calcium 8.1 mg/dL (8.4-10.2) L 02/08/16 06:29 Magnesium 2.0 mg/dL (1.7-2.3) 02/05/16 20:44 Total Bilirubin 0.5 mg/dL (0.1-1.2) 02/07/16 05:27 Direct Bilirubin < 0.2 mg/dL (0-0.2) 02/07/16 05:27 Indirect Bilirubin 0.3 mg/dL 02/07/16 05:27 AST 15 units/L (5-40) 02/07/16 05:27 ALT 13 units/L (7-56) 02/07/16 05:27 Alkaline Phosphatase 92 units/L (35-129) 02/07/16 05:27 Total Creatine Kinase 73 units/L (30-135) 02/06/16 10:32 CK-MB (CK-2) 2.8 ng/mL (0.0-4.0) 02/06/16 10:32 CK-MB (CK-2) Rel Index 3.8 (0-4) 02/06/16 10:32 Troponin T 0.072 ng/mL (0.00-0.029) H 02/06/16 05:00 NT-Pro-B Natriuret Pep > 26391 pg/mL (0-900) H 02/05/16 20:44 Total Protein 7.0 g/dL (6.3-8.2) 02/07/16 05:27 Albumin 3.6 g/dL (3.9-5) L 02/07/16 05:27 Albumin/Globulin Ratio 1.1 % 02/07/16 05:27 Triglycerides 96 mg/dL (2-149) 02/05/16 20:44 Cholesterol 135 mg/dL (50-199) 02/05/16 20:44 LDL Cholesterol Direct 78 mg/dL (50-130) 02/05/16 20:44 HDL Cholesterol 38 mg/dL (40-59) L 02/05/16 20:44 Cholesterol/HDL Ratio 3.55 % 02/05/16 20:44 Urine Color Yellow (Yellow) 02/05/16 20:24 Urine Turbidity Clear (Clear) 02/05/16 20:24 Urine pH 6.0 (5.0-7.0) 02/05/16 20:24 Ur Specific [place] 1.014 (1.003-1.030) 02/05/16 20:24 Urine Protein 100 mg/dl mg/dL (Negative) 02/05/16 20:24 Urine Glucose (UA) Neg mg/dL (Negative) 02/05/16 20:24 Urine Ketones Neg mg/dL (Negative) 02/05/16 20:24 Urine Blood Sm (Negative) 02/05/16 20:24 Urine Nitrite Neg (Negative) 02/05/16 20:24 Urine Bilirubin Neg (Negative) 02/05/16 20:24 Urine Urobilinogen < 2.0 mg/dL (<2.0) 02/05/16 20:24 Ur Leukocyte Esterase Neg (Negative) 02/05/16 20:24 Urine WBC (Auto) 1.0 /HPF (0.0-6.0) 02/05/16 20:24 Urine RBC (Auto) 2.0 /HPF (0.0-6.0) 02/05/16 20:24 U Epithel Cells (Auto) 3.0 /HPF (0-13.0) 02/05/16 20:24
--- NOTE | 2016-02-08 10:43 | Discharge Summary ---
Providers - Providers Date of Admission: 02/05/16 23:48 Attending physician: VIKI AU MD Primary care physician: PARTS COUNTERMAN Hospitalization Condition: Stable Hospital course: 60 F with ESRD who self stopped HD for 1 month, and presented with 1 week of CP and progressive SOB. After she received HD she felt better, Her BP was also elevated for which her meds were optimized, 1. Chest pain ACS was ruled out via neg troponins, VQ scan was negative for PE, Nuclear stress test was also negative CP was most likely due to acellerated htn 2. Accelerated HTN added nifedipine and lisinopril, better controilled prior to dc 3. ESRD HD per renal case management testablished outpatient HD chair time 4. DM rx with insulins Disposition: DISCHARGED TO HOME OR SELFCARE Time spent for discharge: 35 minutes Core Measure Documentation - Palliative Care Palliative Care/ Comfort Measures: Not Applicable - Core Measures Any of the following diagnoses?: none Exam - Constitutional Vitals: Temp Pulse Resp BP Pulse Ox 98.1 F 76 20 156/70 94 02/08/16 07:25 02/08/16 07:25 02/08/16 07:25 02/08/16 07:25 02/08/16 07:25 General appearance: Present: no acute distress, well-nourished - EENT Eyes: Present: PERRL ENT: hearing intact, clear oral mucosa - Neck Neck: Present: supple, normal ROM - Respiratory Respiratory effort: normal Respiratory: bilateral: CTA - Cardiovascular Heart Sounds: Present: S1 & S2. Absent: rub, click - Extremities Extremities: pulses symmetrical, No edema Peripheral Pulses: within normal limits - Abdominal General gastrointestinal: Present: soft, non-tender, non-distended, normal bowel sounds Female genitourinary: Present: normal - Integumentary Integumentary: Present: clear, warm, dry - Musculoskeletal Musculoskeletal: gait normal, strength equal bilaterally - Psychiatric Psychiatric: appropriate mood/affect, intact judgment & insight - Neurologic Neurologic: CNII-XII intact, moves all extremities Plan Follow up with: PRIMARY CARE, [Primary Care Provider] - 7 Days Prescriptions: NIFEdipine XL [Procardia Xl] 60 mg PO QDAY #30 tablet Lisinopril [Zestril TAB] 40 mg PO QDAY #30 tablet
[2016-02-08 15:16] LABS: Alanine Aminotransferase 11 units/L (7-56); Albumin 3.4 g/dL (3.9-5); Albumin/Globulin Ratio 1.1 %; Alkaline Phosphatase 89 units/L (35-129); Bilirubin,Total 0.3 mg/dL (0.1-1.2); Total Protein 6.4 g/dL (6.3-8.2)
[2016-02-08 15:21] LABS: Bilirubin,Direct < 0.2 mg/dL (0-0.2); Bilirubin,Indirect 0.1 mg/dL
[2016-02-08] MEDS: PROCRIT IV PRN (17:09)
[2016-02-08] MEDS: PROCARDIA XL PO SCH (20:35)
[2016-02-08] MEDS: ZESTRIL PO SCH (20:36)
[2016-02-08] MEDS: IMDUR PO SCH (20:36)
--- NOTE | 2016-02-08 20:43 | XRay Report ---
FINAL REPORT PROCEDURE: XR HIPS BILAT 2V W/PELVIS TECHNIQUE: Bilateral hip radiographs, 2 views each, including AP view of the pelvis. HISTORY: post Fall assessment-pain in hip area COMPARISON: No prior studies are available for comparison. FINDINGS: No acute fracture or joint dislocation is seen. There is bilateral hip joint space narrowing. Irregular calcification is seen in the central pelvis, likely related to calcified uterine fibroids. IMPRESSION: No acute fracture is identified
[2016-02-08] MEDS ORDERED: PERCOCET 5/325 PO ONE (21:00)
[2016-02-08] MEDS: ASPIRIN PO SCH (21:27)
[2016-02-08] MEDS: COREG PO SCH ×2 (21:27→21:51)
[2016-02-08] MEDS: ZOCOR PO SCH (21:51)
[2016-02-09 05:35] LABS: Basophils % (Auto) 0.6 % (0.0-1.8); Eosinophils % (Auto) 4.7 % (0.0-4.3); Hematocrit 32.1 % (30.3-42.9); Hemoglobin 10.4 gm/dl (10.1-14.3); Mean Corpuscular HGB Conc 33 % (30-34); Mean Corpuscular Hemoglobin 26 pg (28-32); Mean Corpuscular Volume 81 fl (79-97); Platelet Count 161 K/mm3 (140-440); Red Blood Count 3.95 M/mm3 (3.65-5.03); Red Cell Distribution Width 15.9 % (13.2-15.2); White Blood Count 10.6 K/mm3 (4.5-11.0)
[2016-02-09 06:05] LABS: BUN/Creatinine Ratio 4.61; Calcium 8.4 mg/dL (8.4-10.2); Chloride 98.4 mmol/L (98-107); Potassium 3.5 mmol/L (3.6-5.0)
[2016-02-09] MEDS: NOVOLOG SUB-Q SCH ×3 (07:30→22:40)
--- NOTE | 2016-02-09 07:50 | Progress Note ---
Assessment and Plan Impression * End-stage renal disease on maintenance hemodialysis * Chest pain * Accelerated Hypertension * Diabetes * History of congestive heart failure * Anemia secondary to ESRD Recommendations * Dialysis q Mondays, Wednesdays and Fridays * Adjust diet and meds for ESRD state * Procrit with dialysis * No IV, BP or venipuncture in his access arm * will need outpatient dialysis placement prior to discharge * stress compliance with dialysis Subjective Date of service: 02/09/16 Principal diagnosis: esrd Interval history: resting well in bed today Objective - Exam Narrative Exam: Gen. appearance: Patient lying in bed, no apparent distress HEENT: Normocephalic, atraumatic, pupils equally round and reactive to light, extraocular movement intact, and no sclericterus,. No JVD or thyromegaly or nodule,neck supple, no carotid bruit ,mucous membranes moist, no exudate or erythema Heart: S1, S2, regular rate and rhythm Lungs: Clear to auscultation bilaterally, breathing comfortable Abdomen: Positive bowel sounds, nontender, nondistended, no organomegaly Extremity: No edema, cyanosis, clubbing Skin: No rash, nodules, warm, dry Neuro: Oriented 3, cranial nerves II-12 intact, speech is fluent, motor and sensory intact - Vital Signs Vital signs: Vital Signs - 12hr 02/08/16 02/08/16 02/08/16 20:41 21:51 23:07 Temperature 98.4 F Pulse Rate [ Left Posterior Tibial] Pulse Rate [ 86 Left Radial] Pulse Rate [ 86 Right Radial] Respiratory 18 20 Rate Blood Pressure 207/96 Blood Pressure 207/96 [Left Radial Artery] O2 Sat by Pulse 92 Oximetry 02/09/16 02/09/16 02/09/16 01:07 05:33 07:39 Temperature 98.6 F 98.4 F 97.2 F L Pulse Rate [ 72 Left Posterior Tibial] Pulse Rate [ 74 71 Left Radial] Pulse Rate [ Right Radial] Respiratory 20 20 22 Rate Blood Pressure Blood Pressure 128/64 110/56 130/63 [Left Radial Artery] O2 Sat by Pulse 97 90 98 Oximetry - Lab 02/09/16 05:12 02/09/16 05:12 Most recent lab results Calcium 8.4 mg/dL (8.4-10.2) 02/09/16 05:12 Magnesium 2.0 mg/dL (1.7-2.3) 02/05/16 20:44
[2016-02-09] MEDS: IMDUR PO SCH (10:00)
[2016-02-09] MEDS: COREG PO SCH ×2 (11:01→22:05)
[2016-02-09] MEDS: PROCARDIA XL PO SCH (11:01)
[2016-02-09] MEDS: ASPIRIN PO SCH (11:02)
[2016-02-09] MEDS: ZESTRIL PO SCH (11:03)
--- NOTE | 2016-02-09 11:54 | Progress Note ---
Assessment and Plan Assessment and plan: 1. Chest pain serial trops negative VQ scan negative stress test negative 2. Accelerated HTN added nifedipine and lisinopril, better controlled now 3. ESRD HD per renal case management to establish outpatient HD chair time 4. DM acceptable control, continue insulins 5. Hip pain Due to mild trauma status post fall, x-rays do not show any fractures, pain medicine as needed. Tentative discharge in 1-2 days when social issues are managed, dialysis check and has been obtained, will need nursing home placement History Interval history: chest pain is now resolved, she admits that she self stopped HD for one month, and during the last week started having CP and SOB, she sustained a fall last night after dialysis, she is now complaining of some hip pain . Hospitalist Physical - Physical exam Narrative exam: General: Patient appears well in no distress HEENT: MMM, EOMI cardiac: S1-S2 heard lungs: clear to auscultation, abdomen: soft, nontender, nondistended bowel sounds positive extremities: no edema clubbing or cyanosis Skin: no rash or lesion Neuro: no focal deficit Psych: appropriate behavior and mood, cognition intact - Constitutional Vitals: Temp Pulse Resp BP Pulse Ox 97.2 F L 72 22 130/63 98 02/09/16 07:39 02/09/16 07:39 02/09/16 07:39 02/09/16 07:39 02/09/16 07:39 General appearance: Present: no acute distress, well-nourished Results - Labs CBC & Chem 7: 02/09/16 05:12 02/09/16 05:12 Labs: Laboratory Last Values WBC 10.6 K/mm3 (4.5-11.0) 02/09/16 05:12 RBC 3.95 M/mm3 (3.65-5.03) 02/09/16 05:12 Hgb 10.4 gm/dl (10.1-14.3) 02/09/16 05:12 Hct 32.1 % (30.3-42.9) 02/09/16 05:12 MCV 81 fl (79-97) 02/09/16 05:12 MCH 26 pg (28-32) L 02/09/16 05:12 MCHC 33 % (30-34) 02/09/16 05:12 RDW 15.9 % (13.2-15.2) H 02/09/16 05:12 Plt Count 161 K/mm3 (140-440) 02/09/16 05:12 Lymph % (Auto) 18.6 % (13.4-35.0) 02/09/16 05:12 [place] % (Auto) 15.5 % (0.0-7.3) H 02/09/16 05:12 Eos % (Auto) 4.7 % (0.0-4.3) H 02/09/16 05:12 Baso % (Auto) 0.6 % (0.0-1.8) 02/09/16 05:12 Lymph # 2.0 K/mm3 (1.2-5.4) 02/09/16 05:12 [place] # 1.6 K/mm3 (0.0-0.8) H 02/09/16 05:12 Eos # 0.5 K/mm3 (0.0-0.4) H 02/09/16 05:12 Baso # 0.1 K/mm3 (0.0-0.1) 02/09/16 05:12 Seg Neutrophils % 60.6 % (40.0-70.0) 02/09/16 05:12 Seg Neutrophils # 6.4 K/mm3 (1.8-7.7) 02/09/16 05:12 PT 14.1 Sec. (12.2-14.9) 02/05/16 20:44 INR 1.10 (0.87-1.13) 02/05/16 20:44 APTT 35.8 Sec. (24.2-36.6) 02/05/16 20:44 D-Dimer 939.16 ng/mlDDU (0-234) H 02/05/16 20:44 Sodium 139 mmol/L (137-145) 02/09/16 05:12 Potassium 3.5 mmol/L (3.6-5.0) L 02/09/16 05:12 Chloride 98.4 mmol/L (98-107) 02/09/16 05:12 Carbon Dioxide 26 mmol/L (22-30) 02/09/16 05:12 Anion Gap 18 mmol/L 02/09/16 05:12 BUN 18 mg/dL (7-17) H 02/09/16 05:12 Creatinine 3.9 mg/dL (0.7-1.2) H 02/09/16 05:12 Estimated GFR 14 ml/min 02/09/16 05:12 BUN/Creatinine Ratio 4.61 % 02/09/16 05:12 Glucose 122 mg/dL (65-100) H 02/09/16 05:12 POC Glucose 120 (70-105) H 02/09/16 07:28 Calcium 8.4 mg/dL (8.4-10.2) 02/09/16 05:12 Magnesium 2.0 mg/dL (1.7-2.3) 02/05/16 20:44 Total Bilirubin 0.3 mg/dL (0.1-1.2) 02/08/16 06:29 Direct Bilirubin < 0.2 mg/dL (0-0.2) 02/08/16 06:29 Indirect Bilirubin 0.1 mg/dL 02/08/16 06:29 AST 11 units/L (5-40) 02/08/16 06:29 ALT 11 units/L (7-56) 02/08/16 06:29 Alkaline Phosphatase 89 units/L (35-129) 02/08/16 06:29 Total Creatine Kinase 73 units/L (30-135) 02/06/16 10:32 CK-MB (CK-2) 2.8 ng/mL (0.0-4.0) 02/06/16 10:32 CK-MB (CK-2) Rel Index 3.8 (0-4) 02/06/16 10:32 Troponin T 0.072 ng/mL (0.00-0.029) H 02/06/16 05:00 NT-Pro-B Natriuret Pep > 38244 pg/mL (0-900) H 02/05/16 20:44 Total Protein 6.4 g/dL (6.3-8.2) 02/08/16 06:29 Albumin 3.4 g/dL (3.9-5) L 02/08/16 06:29 Albumin/Globulin Ratio 1.1 % 02/08/16 06:29 Triglycerides 96 mg/dL (2-149) 02/05/16 20:44 Cholesterol 135 mg/dL (50-199) 02/05/16 20:44 LDL Cholesterol Direct 78 mg/dL (50-130) 02/05/16 20:44 HDL Cholesterol 38 mg/dL (40-59) L 02/05/16 20:44 Cholesterol/HDL Ratio 3.55 % 02/05/16 20:44 Urine Color Yellow (Yellow) 02/05/16 20:24 Urine Turbidity Clear (Clear) 02/05/16 20:24 Urine pH 6.0 (5.0-7.0) 02/05/16 20:24 Ur Specific [place] 1.014 (1.003-1.030) 02/05/16 20:24 Urine Protein 100 mg/dl mg/dL (Negative) 02/05/16 20:24 Urine Glucose (UA) Neg mg/dL (Negative) 02/05/16 20:24 Urine Ketones Neg mg/dL (Negative) 02/05/16 20:24 Urine Blood Sm (Negative) 02/05/16 20:24 Urine Nitrite Neg (Negative) 02/05/16 20:24 Urine Bilirubin Neg (Negative) 02/05/16 20:24 Urine Urobilinogen < 2.0 mg/dL (<2.0) 02/05/16 20:24 Ur Leukocyte Esterase Neg (Negative) 02/05/16 20:24 Urine WBC (Auto) 1.0 /HPF (0.0-6.0) 02/05/16 20:24 Urine RBC (Auto) 2.0 /HPF (0.0-6.0) 02/05/16 20:24 U Epithel Cells (Auto) 3.0 /HPF (0-13.0) 02/05/16 20:24 Hepatitis A IgM Ab Nonreactive (NonReactive) 02/08/16 06:29 Hep Bs Antigen Non-reactive (Negative) 02/08/16 06:29 Hep B Core IgM Ab Non-reactive (NonReactive) 02/08/16 06:29 Hepatitis C Antibody Non-reactive (NonReactive) 02/08/16 06:29 - Imaging and Cardiology Imaging and Cardiology: X-ray pelvis/hip, image reviewed, no fractures noted
[2016-02-09] MEDS: ZOCOR PO SCH (22:05)
[2016-02-10 07:33] LABS: Hematocrit 32.5 % (30.3-42.9); Hemoglobin 10.5 gm/dl (10.1-14.3); Mean Corpuscular HGB Conc 32 % (30-34); Mean Corpuscular Hemoglobin 26 pg (28-32); Mean Corpuscular Volume 82 fl (79-97); Platelet Count 138 K/mm3 (140-440); Red Blood Count 3.99 M/mm3 (3.65-5.03); Red Cell Distribution Width 16.1 % (13.2-15.2); White Blood Count 8.3 K/mm3 (4.5-11.0)
[2016-02-10] MEDS: NOVOLOG SUB-Q SCH ×4 (08:00→22:00)
[2016-02-10 08:11] LABS: Calcium 8.1 mg/dL (8.4-10.2); Chloride 93.8 mmol/L (98-107); Potassium 3.6 mmol/L (3.6-5.0)
--- NOTE | 2016-02-10 10:14 | Progress Note ---
Assessment and Plan Assessment and plan: 1. Chest pain serial trops negative VQ scan negative stress test negative 2. Accelerated HTN - On nifedipine and lisinopril - Well-controlled now 3. ESRD - HD per renal - case management to establish outpatient HD chair time 4. DM acceptable control, continue insulins Disposition: patient said she will go to her brother's house once she is discharged. She is not sure where she go for hemodialysis. History Interval history: No new complaints, no nursing issues overnight. Hospitalist Physical - Physical exam Narrative exam: Not in cardiopulmonary distress. The patient appeared well nourished and normally developed. Vital signs as documented. Head exam is unremarkable. No scleral icterus . Neck is without jugular venous distension, thyromegaly, or carotid bruits. Lungs are clear to auscultation. Cardiac exam reveals regular rate and Rhythm. First and second heart sounds normal. No murmurs, rubs or gallops. Abdominal exam reveals normal bowel sounds, no masses, no organomegaly and no aortic enlargement. Extremities are nonedematous and both femoral and pedal pulses are normal. PATIENT CASE MANAGER: Alert and oriented 3. No focal weakness. - Constitutional Vitals: Temp Pulse Resp BP Pulse Ox 98.3 F 68 18 130/58 95 02/10/16 08:14 02/10/16 08:14 02/10/16 08:57 02/10/16 08:14 02/10/16 08:14 General appearance: Present: no acute distress, well-nourished Results - Labs CBC & Chem 7: 02/10/16 06:56 02/10/16 06:56 Labs: Laboratory Last Values WBC 8.3 K/mm3 (4.5-11.0) 02/10/16 06:56 RBC 3.99 M/mm3 (3.65-5.03) 02/10/16 06:56 Hgb 10.5 gm/dl (10.1-14.3) 02/10/16 06:56 Hct 32.5 % (30.3-42.9) 02/10/16 06:56 MCV 82 fl (79-97) 02/10/16 06:56 MCH 26 pg (28-32) L 02/10/16 06:56 MCHC 32 % (30-34) 02/10/16 06:56 RDW 16.1 % (13.2-15.2) H 02/10/16 06:56 Plt Count 138 K/mm3 (140-440) L 02/10/16 06:56 Lymph % (Auto) 18.6 % (13.4-35.0) 02/09/16 05:12 [place] % (Auto) Custom Protection Officer 02/10/16 06:56 Eos % (Auto) 4.7 % (0.0-4.3) H 02/09/16 05:12 Baso % (Auto) 0.6 % (0.0-1.8) 02/09/16 05:12 Lymph # 2.0 K/mm3 (1.2-5.4) 02/09/16 05:12 [place] # 1.6 K/mm3 (0.0-0.8) H 02/09/16 05:12 Eos # 0.5 K/mm3 (0.0-0.4) H 02/09/16 05:12 Baso # 0.1 K/mm3 (0.0-0.1) 02/09/16 05:12 Seg Neutrophils % 60.6 % (40.0-70.0) 02/09/16 05:12 Seg Neutrophils # 6.4 K/mm3 (1.8-7.7) 02/09/16 05:12 PT 14.1 Sec. (12.2-14.9) 02/05/16 20:44 INR 1.10 (0.87-1.13) 02/05/16 20:44 APTT 35.8 Sec. (24.2-36.6) 02/05/16 20:44 D-Dimer 939.16 ng/mlDDU (0-234) H 02/05/16 20:44 Sodium 135 mmol/L (137-145) L 02/10/16 06:56 Potassium 3.6 mmol/L (3.6-5.0) 02/10/16 06:56 Chloride 93.8 mmol/L (98-107) L 02/10/16 06:56 Carbon Dioxide 25 mmol/L (22-30) 02/10/16 06:56 Anion Gap 20 mmol/L 02/10/16 06:56 BUN 30 mg/dL (7-17) H 02/10/16 06:56 Creatinine 6.0 mg/dL (0.7-1.2) H D 02/10/16 06:56 Estimated GFR 9 ml/min 02/10/16 06:56 BUN/Creatinine Ratio 5.00 % 02/10/16 06:56 Glucose 102 mg/dL (65-100) H 02/10/16 06:56 POC Glucose 156 (70-105) H 02/09/16 22:38 Calcium 8.1 mg/dL (8.4-10.2) L 02/10/16 06:56 Magnesium 2.0 mg/dL (1.7-2.3) 02/05/16 20:44 Total Bilirubin 0.3 mg/dL (0.1-1.2) 02/08/16 06:29 Direct Bilirubin < 0.2 mg/dL (0-0.2) 02/08/16 06:29 Indirect Bilirubin 0.1 mg/dL 02/08/16 06:29 AST 11 units/L (5-40) 02/08/16 06:29 ALT 11 units/L (7-56) 02/08/16 06:29 Alkaline Phosphatase 89 units/L (35-129) 02/08/16 06:29 Total Creatine Kinase 73 units/L (30-135) 02/06/16 10:32 CK-MB (CK-2) 2.8 ng/mL (0.0-4.0) 02/06/16 10:32 CK-MB (CK-2) Rel Index 3.8 (0-4) 02/06/16 10:32 Troponin T 0.072 ng/mL (0.00-0.029) H 02/06/16 05:00 NT-Pro-B Natriuret Pep > 75382 pg/mL (0-900) H 02/05/16 20:44 Total Protein 6.4 g/dL (6.3-8.2) 02/08/16 06:29 Albumin 3.4 g/dL (3.9-5) L 02/08/16 06:29 Albumin/Globulin Ratio 1.1 % 02/08/16 06:29 Triglycerides 96 mg/dL (2-149) 02/05/16 20:44 Cholesterol 135 mg/dL (50-199) 02/05/16 20:44 LDL Cholesterol Direct 78 mg/dL (50-130) 02/05/16 20:44 HDL Cholesterol 38 mg/dL (40-59) L 02/05/16 20:44 Cholesterol/HDL Ratio 3.55 % 02/05/16 20:44 Urine Color Yellow (Yellow) 02/05/16 20:24 Urine Turbidity Clear (Clear) 02/05/16 20:24 Urine pH 6.0 (5.0-7.0) 02/05/16 20:24 Ur Specific [place] 1.014 (1.003-1.030) 02/05/16 20:24 Urine Protein 100 mg/dl mg/dL (Negative) 02/05/16 20:24 Urine Glucose (UA) Neg mg/dL (Negative) 02/05/16 20:24 Urine Ketones Neg mg/dL (Negative) 02/05/16 20:24 Urine Blood Sm (Negative) 02/05/16 20:24 Urine Nitrite Neg (Negative) 02/05/16 20:24 Urine Bilirubin Neg (Negative) 02/05/16 20:24 Urine Urobilinogen < 2.0 mg/dL (<2.0) 02/05/16 20:24 Ur Leukocyte Esterase Neg (Negative) 02/05/16 20:24 Urine WBC (Auto) 1.0 /HPF (0.0-6.0) 02/05/16 20:24 Urine RBC (Auto) 2.0 /HPF (0.0-6.0) 02/05/16 20:24 U Epithel Cells (Auto) 3.0 /HPF (0-13.0) 02/05/16 20:24 Hepatitis A IgM Ab Nonreactive (NonReactive) 02/08/16 06:29 Hep Bs Antigen Non-reactive (Negative) 02/08/16 06:29 Hep B Core IgM Ab Non-reactive (NonReactive) 02/08/16 06:29 Hepatitis C Antibody Non-reactive (NonReactive) 02/08/16 06:29
[2016-02-10] MEDS: COREG PO SCH ×2 (10:17→22:06)
[2016-02-10] MEDS: IMDUR PO SCH (10:17)
[2016-02-10] MEDS: ZESTRIL PO SCH (10:17)
[2016-02-10] MEDS: PROCARDIA XL PO SCH (10:17)
[2016-02-10] MEDS: ASPIRIN PO SCH (10:18)
[2016-02-10 10:24] LABS: Basophils % (Manual) 0 % (0.0-1.8); Blastocytes % (Manual) 0 %
[2016-02-10 10:25] LABS: Anisocytosis 1+; Diff Status Complete; Hypochromasia Few; Poikilocytosis Few
[2016-02-10] MEDS: ZOCOR PO SCH (22:06)
[2016-02-11 06:14] LABS: Basophils % (Auto) 0.5 % (0.0-1.8); Eosinophils % (Auto) 5.1 % (0.0-4.3); Hematocrit 33.1 % (30.3-42.9); Hemoglobin 10.5 gm/dl (10.1-14.3); Mean Corpuscular HGB Conc 32 % (30-34); Mean Corpuscular Volume 82 fl (79-97); Platelet Count 143 K/mm3 (140-440); Red Blood Count 4.05 M/mm3 (3.65-5.03); Red Cell Distribution Width 15.8 % (13.2-15.2); White Blood Count 8.2 K/mm3 (4.5-11.0)
[2016-02-11 06:17] LABS: Mean Corpuscular Hemoglobin 26 pg (28-32)
[2016-02-11 06:36] LABS: BUN/Creatinine Ratio 5.92; Calcium 7.7 mg/dL (8.4-10.2); Chloride 94.3 mmol/L (98-107); Potassium 3.7 mmol/L (3.6-5.0)
--- NOTE | 2016-02-11 09:01 | Progress Note ---
Assessment and Plan Impression * End-stage renal disease on maintenance hemodialysis * Chest pain * Accelerated Hypertension * Diabetes * History of congestive heart failure * Anemia secondary to ESRD Recommendations * Dialysis q Mondays, Wednesdays and Fridays * Adjust diet and meds for ESRD state * Procrit with dialysis * No IV, BP or venipuncture in his access arm * will need outpatient dialysis placement prior to discharge * she stopped dialysis for 30 days voluntarily and was discharged from her clinic * stress compliance with dialysis Subjective Date of service: 02/11/16 Principal diagnosis: esrd Interval history: resting well in bed today Objective - Exam Narrative Exam: Gen. appearance: Patient lying in bed, no apparent distress HEENT: Normocephalic, atraumatic, pupils equally round and reactive to light, extraocular movement intact, and no sclericterus,. No JVD or thyromegaly or nodule,neck supple, no carotid bruit ,mucous membranes moist, no exudate or erythema Heart: S1, S2, regular rate and rhythm Lungs: Clear to auscultation bilaterally, breathing comfortable Abdomen: Positive bowel sounds, nontender, nondistended, no organomegaly Extremity: No edema, cyanosis, clubbing Skin: No rash, nodules, warm, dry Neuro: Oriented 3, cranial nerves II-12 intact, speech is fluent, motor and sensory intact - Vital Signs Vital signs: Vital Signs - 12hr 02/10/16 02/10/16 02/11/16 21:39 22:06 01:28 Temperature 98.4 F 98.2 F Pulse Rate 72 Pulse Rate [ Apical] Pulse Rate [ 72 67 Left Radial] Respiratory 20 20 Rate Blood Pressure 106/59 Blood Pressure 106/59 100/55 [Left Radial Artery] O2 Sat by Pulse 96 94 Oximetry 02/11/16 02/11/16 04:10 07:45 Temperature 98.3 F 97.7 F Pulse Rate Pulse Rate [ 67 Apical] Pulse Rate [ 60 Left Radial] Respiratory 20 20 Rate Blood Pressure Blood Pressure 115/60 118/59 [Left Radial Artery] O2 Sat by Pulse 96 98 Oximetry - Lab 02/11/16 04:51 02/11/16 04:51 Most recent lab results Calcium 7.7 mg/dL (8.4-10.2) L 02/11/16 04:51 Magnesium 2.0 mg/dL (1.7-2.3) 02/05/16 20:44
[2016-02-11] MEDS: NOVOLOG SUB-Q SCH ×4 (09:39→21:59)
[2016-02-11] MEDS ORDERED: NACL 0.9 (PRIMING MACHINE ONLY DIALYSIS) MC ONE (13:13)
[2016-02-11] MEDS: PROCRIT IV PRN (14:50)
[2016-02-11] MEDS: IMDUR PO SCH (17:42)
[2016-02-11] MEDS: ASPIRIN PO SCH (17:42)
[2016-02-11] MEDS: COREG PO SCH ×2 (17:42→21:58)
[2016-02-11] MEDS: ZESTRIL PO SCH (17:43)
[2016-02-11] MEDS: PROCARDIA XL PO SCH (17:43)
--- NOTE | 2016-02-11 18:38 | Progress Note ---
Hospitalist Physical - Constitutional Vitals: Temp Pulse Resp BP Pulse Ox 98 F 64 18 148/72 97 02/11/16 16:00 02/11/16 16:00 02/11/16 16:00 02/11/16 16:00 02/11/16 11:20 General appearance: Present: no acute distress, well-nourished - EENT Eyes: Present: PERRL, EOM intact - Neck Neck: Present: supple, normal ROM - Respiratory Respiratory effort: normal Respiratory: negative: rales, rhonchi, wheezing - Cardiovascular Rhythm: regular Heart Sounds: Present: S1 & S2 - Extremities Extremities: no ischemia, pulses intact, pulses symmetrical Peripheral Pulses: within normal limits Results - Labs CBC & Chem 7: 02/11/16 04:51 02/11/16 04:51 Labs: Laboratory Last Values WBC 8.2 K/mm3 (4.5-11.0) 02/11/16 04:51 RBC 4.05 M/mm3 (3.65-5.03) 02/11/16 04:51 Hgb 10.5 gm/dl (10.1-14.3) 02/11/16 04:51 Hct 33.1 % (30.3-42.9) 02/11/16 04:51 MCV 82 fl (79-97) 02/11/16 04:51 MCH 26 pg (28-32) L 02/11/16 04:51 MCHC 32 % (30-34) 02/11/16 04:51 RDW 15.8 % (13.2-15.2) H 02/11/16 04:51 Plt Count 143 K/mm3 (140-440) 02/11/16 04:51 Lymph % (Auto) 25.7 % (13.4-35.0) 02/11/16 04:51 [place] % (Auto) 15.4 % (0.0-7.3) H 02/11/16 04:51 Eos % (Auto) 5.1 % (0.0-4.3) H 02/11/16 04:51 Baso % (Auto) 0.5 % (0.0-1.8) 02/11/16 04:51 Lymph # 2.1 K/mm3 (1.2-5.4) 02/11/16 04:51 [place] # 1.3 K/mm3 (0.0-0.8) H 02/11/16 04:51 Eos # 0.4 K/mm3 (0.0-0.4) 02/11/16 04:51 Baso # 0.0 K/mm3 (0.0-0.1) 02/11/16 04:51 Add Manual Diff Complete 02/10/16 06:56 Total Counted 100 02/10/16 06:56 Seg Neutrophils % 53.3 % (40.0-70.0) 02/11/16 04:51 Seg Neuts % (Manual) 48.0 % (40.0-70.0) 02/10/16 06:56 Band Neutrophils % 1.0 % 02/10/16 06:56 Lymphocytes % (Manual) 27.0 % (13.4-35.0) 02/10/16 06:56 Reactive Lymphs % (Man) 0 % 02/10/16 06:56 Monocytes % (Manual) 13.0 % (0.0-7.3) H 02/10/16 06:56 Eosinophils % (Manual) 11.0 % (0.0-4.3) H 02/10/16 06:56 Basophils % (Manual) 0 % (0.0-1.8) 02/10/16 06:56 Metamyelocytes % 0 % 02/10/16 06:56 Myelocytes % 0 % 02/10/16 06:56 Promyelocytes % 0 % 02/10/16 06:56 Blast Cells % 0 % 02/10/16 06:56 Nucleated RBC % Not Reportable 02/10/16 06:56 Seg Neutrophils # 4.4 K/mm3 (1.8-7.7) 02/11/16 04:51 Seg Neutrophils # Man 4.0 K/mm3 (1.8-7.7) 02/10/16 06:56 Band Neutrophils # 0.1 K/mm3 02/10/16 06:56 Lymphocytes # (Manual) 2.2 K/mm3 (1.2-5.4) 02/10/16 06:56 Abs React Lymphs (Man) 0.0 K/mm3 02/10/16 06:56 Monocytes # (Manual) 1.1 K/mm3 (0.0-0.8) H 02/10/16 06:56 Eosinophils # (Manual) 0.9 K/mm3 (0.0-0.4) H 02/10/16 06:56 Basophils # (Manual) 0.0 K/mm3 (0.0-0.1) 02/10/16 06:56 Metamyelocytes # 0.0 K/mm3 02/10/16 06:56 Myelocytes # 0.0 K/mm3 02/10/16 06:56 Promyelocytes # 0.0 K/mm3 02/10/16 06:56 Blast Cells # 0.0 K/mm3 02/10/16 06:56 WBC Morphology Not Reportable 02/10/16 06:56 Hypersegmented Neuts Not Reportable 02/10/16 06:56 Hyposegmented Neuts Not Reportable 02/10/16 06:56 Hypogranular Neuts Not Reportable 02/10/16 06:56 Smudge Cells Not Reportable 02/10/16 06:56 Toxic Granulation Not Reportable 02/10/16 06:56 Toxic Vacuolation Not Reportable 02/10/16 06:56 Dohle Bodies Not Reportable 02/10/16 06:56 Pelger-Huet Anomaly Not Reportable 02/10/16 06:56 Phong Rods Not Reportable 02/10/16 06:56 Platelet Estimate Appears normal 02/10/16 06:56 Clumped Platelets Not Reportable 02/10/16 06:56 Plt Clumps, EDTA Not Reportable 02/10/16 06:56 Large Platelets Not Reportable 02/10/16 06:56 Giant Platelets Not Reportable 02/10/16 06:56 Platelet Satelliting Not Reportable 02/10/16 06:56 Plt Morphology Comment Not Reportable 02/10/16 06:56 RBC Morphology Not Reportable 02/10/16 06:56 Dimorphic RBCs Not Reportable 02/10/16 06:56 Polychromasia Not Reportable 02/10/16 06:56 Hypochromasia Few 02/10/16 06:56 Poikilocytosis Few 02/10/16 06:56 Anisocytosis 1+ 02/10/16 06:56 Microcytosis Not Reportable 02/10/16 06:56 Macrocytosis Not Reportable 02/10/16 06:56 Spherocytes Not Reportable 02/10/16 06:56 Pappenheimer Bodies Not Reportable 02/10/16 06:56 Sickle Cells Not Reportable 02/10/16 06:56 Target Cells Not Reportable 02/10/16 06:56 Tear Drop Cells Not Reportable 02/10/16 06:56 Ovalocytes Not Reportable 02/10/16 06:56 Helmet Cells Not Reportable 02/10/16 06:56 [place] Bodies Not Reportable 02/10/16 06:56 [place]ham Rings Not Reportable 02/10/16 06:56 Jose Cells Not Reportable 02/10/16 06:56 Bite Cells Not Reportable 02/10/16 06:56 Crenated Cell Not Reportable 02/10/16 06:56 Elliptocytes Not Reportable 02/10/16 06:56 Acanthocytes (Spur) Not Reportable 02/10/16 06:56 Rouleaux Not Reportable 02/10/16 06:56 Hemoglobin C Crystals Not Reportable 02/10/16 06:56 Schistocytes Not Reportable 02/10/16 06:56 Malaria parasites Not Reportable 02/10/16 06:56 Facundo Bodies Not Reportable 02/10/16 06:56 Hem Pathologist Commnt No 02/10/16 06:56 PT 14.1 Sec. (12.2-14.9) 02/05/16 20:44 INR 1.10 (0.87-1.13) 02/05/16 20:44 APTT 35.8 Sec. (24.2-36.6) 02/05/16 20:44 D-Dimer 939.16 ng/mlDDU (0-234) H 02/05/16 20:44 Sodium 137 mmol/L (137-145) 02/11/16 04:51 Potassium 3.7 mmol/L (3.6-5.0) 02/11/16 04:51 Chloride 94.3 mmol/L (98-107) L 02/11/16 04:51 Carbon Dioxide 26 mmol/L (22-30) 02/11/16 04:51 Anion Gap 20 mmol/L 02/11/16 04:51 BUN 45 mg/dL (7-17) H 02/11/16 04:51 Creatinine 7.6 mg/dL (0.7-1.2) H 02/11/16 04:51 Estimated GFR 7 ml/min 02/11/16 04:51 BUN/Creatinine Ratio 5.92 % 02/11/16 04:51 Glucose 101 mg/dL (65-100) H 02/11/16 04:51 POC Glucose 191 (70-105) H 02/11/16 12:45 Calcium 7.7 mg/dL (8.4-10.2) L 02/11/16 04:51 Magnesium 2.0 mg/dL (1.7-2.3) 02/05/16 20:44 Total Bilirubin 0.3 mg/dL (0.1-1.2) 02/08/16 06:29 Direct Bilirubin < 0.2 mg/dL (0-0.2) 02/08/16 06:29 Indirect Bilirubin 0.1 mg/dL 02/08/16 06:29 AST 11 units/L (5-40) 02/08/16 06:29 ALT 11 units/L (7-56) 02/08/16 06:29 Alkaline Phosphatase 89 units/L (35-129) 02/08/16 06:29 Total Creatine Kinase 73 units/L (30-135) 02/06/16 10:32 CK-MB (CK-2) 2.8 ng/mL (0.0-4.0) 02/06/16 10:32 CK-MB (CK-2) Rel Index 3.8 (0-4) 02/06/16 10:32 Troponin T 0.072 ng/mL (0.00-0.029) H 02/06/16 05:00 NT-Pro-B Natriuret Pep > 46666 pg/mL (0-900) H 02/05/16 20:44 Total Protein 6.4 g/dL (6.3-8.2) 02/08/16 06:29 Albumin 3.4 g/dL (3.9-5) L 02/08/16 06:29 Albumin/Globulin Ratio 1.1 % 02/08/16 06:29 Triglycerides 96 mg/dL (2-149) 02/05/16 20:44 Cholesterol 135 mg/dL (50-199) 02/05/16 20:44 LDL Cholesterol Direct 78 mg/dL (50-130) 02/05/16 20:44 HDL Cholesterol 38 mg/dL (40-59) L 02/05/16 20:44 Cholesterol/HDL Ratio 3.55 % 02/05/16 20:44 Urine Color Yellow (Yellow) 02/05/16 20:24 Urine Turbidity Clear (Clear) 02/05/16 20:24 Urine pH 6.0 (5.0-7.0) 02/05/16 20:24 Ur Specific [place] 1.014 (1.003-1.030) 02/05/16 20:24 Urine Protein 100 mg/dl mg/dL (Negative) 02/05/16 20:24 Urine Glucose (UA) Neg mg/dL (Negative) 02/05/16 20:24 Urine Ketones Neg mg/dL (Negative) 02/05/16 20:24 Urine Blood Sm (Negative) 02/05/16 20:24 Urine Nitrite Neg (Negative) 02/05/16 20:24 Urine Bilirubin Neg (Negative) 02/05/16 20:24 Urine Urobilinogen < 2.0 mg/dL (<2.0) 02/05/16 20:24 Ur Leukocyte Esterase Neg (Negative) 02/05/16 20:24 Urine WBC (Auto) 1.0 /HPF (0.0-6.0) 02/05/16 20:24 Urine RBC (Auto) 2.0 /HPF (0.0-6.0) 02/05/16 20:24 U Epithel Cells (Auto) 3.0 /HPF (0-13.0) 02/05/16 20:24 Hepatitis A IgM Ab Nonreactive (NonReactive) 02/08/16 06:29 Hep Bs Antigen Non-reactive (Negative) 02/08/16 06:29 Hep B Core IgM Ab Non-reactive (NonReactive) 02/08/16 06:29 Hepatitis C Antibody Non-reactive (NonReactive) 02/08/16 06:29
--- NOTE | 2016-02-11 18:42 | Discharge Summary ---
Providers - Providers Date of Admission: 02/05/16 23:48 Date of discharge: 02/11/16 Attending physician: RONNIE NDIAYE Primary care physician: WEB APPLICATIONS PROGRAMMER Hospitalization Reason for admission: Chest pain and shortness of breath Condition: Stable Pertinent studies: Chest x-ray; fluid overload without evidence of CHF cardiomegaly VQ scan; negative for PE Stress test; normal study, left ventricular ejection fraction 54% X-ray bilateral hip with pelvis; no acute fracture noted Procedures: Hemodialysis per schedule Disposition: DISCHARGED TO HOME OR SELFCARE Time spent for discharge: 32 min Core Measure Documentation - Palliative Care Palliative Care/ Comfort Measures: Not Applicable - Core Measures Any of the following diagnoses?: none Exam - Constitutional Vitals: Temp Pulse Resp BP Pulse Ox 98 F 64 18 148/72 97 02/11/16 16:00 02/11/16 16:00 02/11/16 16:00 02/11/16 16:00 02/11/16 11:20 General appearance: Present: no acute distress, well-nourished, obese - EENT Eyes: Present: PERRL, EOM intact - Neck Neck: Present: supple, normal ROM - Respiratory Respiratory effort: normal Respiratory: bilateral: diminished, negative: rales, rhonchi, wheezing - Cardiovascular Rhythm: regular Heart Sounds: Present: S1 & S2 - Extremities Extremities: no ischemia, pulses intact, pulses symmetrical Peripheral Pulses: within normal limits - Abdominal General gastrointestinal: Present: soft, non-tender, non-distended, normal bowel sounds - Integumentary Integumentary: Present: clear, warm - Musculoskeletal Musculoskeletal: strength equal bilaterally - Psychiatric Psychiatric: appropriate mood/affect, cooperative - Neurologic Neurologic: CNII-XII intact, moves all extremities Plan Activity: no restrictions Diet: renal Additional Instructions: Renal/hemodialysis per schedule. If you have chest pain or shortness of breath go to emergency room or contact [facility] Follow up with: FRANKO THOMASON MD [Primary Care Provider] - 7 Days ROSALIA HAYDEN MD [Staff Physician] - 7 Days MATTHEW MELO MD [Staff Physician] - 7 Days Prescriptions: Lisinopril [Zestril TAB] 40 mg PO QDAY #30 tablet NIFEdipine XL [Procardia Xl] 60 mg PO QDAY #30 tablet
[2016-02-11 20:56] VITALS: BP 131/58
[2016-02-11] MEDS: ZOCOR PO SCH (21:58)
== END 2016-02-11 23:32 | disposition home or self-care (01) | DRG 682 ==
LOC: ED 18:32 → 4A 23:48
PROVIDERS: ADMIT Internal Medicine; ATTEND Internal Medicine
PROC: 5A1D60Z (ICD-10-PCS; principal; 2016-02-06)
DX: I12.0 Hypertensive chronic kidney disease with stage 5 chronic kidney disease or end stage renal disease (principal); N18.6 End stage renal disease; I42.9 Cardiomyopathy, unspecified; D69.6 Thrombocytopenia, unspecified; E11.22 Type 2 diabetes mellitus with diabetic chronic kidney disease; J45.909 Unspecified asthma, uncomplicated; F03.90 Unspecified dementia, unspecified severity, without behavioral disturbance, psychotic disturbance, mood disturbance, and anxiety; I27.2 Other secondary pulmonary hypertension; D63.1 Anemia in chronic kidney disease; Z95.810 Presence of automatic (implantable) cardiac defibrillator; Z79.82 Long term (current) use of aspirin; Z79.899 Other long term (current) drug therapy; Z86.73 Personal history of transient ischemic attack (TIA), and cerebral infarction without residual deficits; Z98.890 Other specified postprocedural states; Z99.2 Dependence on renal dialysis; Z82.49 Family history of ischemic heart disease and other diseases of the circulatory system; M25.559 Pain in unspecified hip; W19.XXXA Unspecified fall, initial encounter; Y93.89 Activity, other specified; Y92.238 Other place in hospital as the place of occurrence of the external cause
CPT/HCPCS: 36415; 71010; 73521; 78452; 78582; 80048; 80053; 80061; 80074; 81001; 82550; 82553; 82962; 83735; 83880; 84484; 85007; 85025; 85379; 85610; 85730; 90686; 90732; 93005; 93010; 93017; 96374; 96375; A9502; A9540; A9558; J0360; J0885; J1815; J2270; J2785; J7030

== ENCOUNTER 2019-04-14 10:28 | Inpatient (IN) | payer MEDICARE ==
[2019-04-14] MEDS ORDERED: ONDANSETRON 4 MG/2 ML INJ IV ONE (11:34)
--- NOTE | 2019-04-14 11:38 | Emergency Department Report ---
HPI - General Chief Complaint: Nausea/Vomiting/Diarrhea Time Seen by Provider: 04/14/19 11:26 - HPI HPI: Room 9 The patient is a 63-year-old female present with a chief complaint of nausea and vomiting. Patient states she came to the emergency department because she has had nausea vomiting and diarrhea for the past 3 days. The patient normally receives dialysis every Thursday but has not had dialysis for 1 week secondary to her above symptoms. Patient denies pain or history of fever. Patient states she is uncertain of the name of her manager [facility] ED Past Medical Hx - Past Medical History Hx Hypertension: Yes Hx CVA: Yes (2013) Hx Congestive Heart Failure: Yes Hx Diabetes: Yes Hx Renal Disease: Yes (ESRD w/ HD Thu, Thu, Thu) Hx Asthma: Yes Hx Dementia: Yes - Surgical History Hx Internal Defibrillator: Yes Additional Surgical History: RUE A/V Graft. right arm surgery to attempt dialysis access, not successful - Family History Family history: no significant - Social History Smoking Status: Never Smoker Substance Use Type: None - Medications Home Medications: Home Medications Medication Instructions Recorded Confirmed Last Taken Type Aspirin 325 mg PO DAILY 06/02/14 01/09/16 01/08/16 History 325 MG Lovastatin [Altoprev] 40 mg PO DAILY 06/02/14 01/09/16 01/08/16 History 40 MG carvediloL [Coreg] 25 mg PO BID 06/02/14 01/09/16 01/08/16 History 25 MG ISOSORBIDE MONOnitrate [Imdur ER] 60 mg PO QDAY #30 tablet 01/11/16 Unknown Rx NIFEdipine XL [Procardia Xl] 60 mg PO QDAY #30 tablet 02/08/16 Unknown Rx lisinopriL [Zestril TAB] 40 mg PO QDAY #30 tablet 02/08/16 Unknown Rx ED Review of Systems ROS: Stated complaint: NO DIALYSIS X 7 DAYS Other details as noted in HPI Constitutional: denies: fever Eyes: denies: eye pain ENT: denies: throat pain Respiratory: no symptoms reported Cardiovascular: denies: chest pain Endocrine: no symptoms reported Gastrointestinal: nausea, vomiting, diarrhea. denies: abdominal pain Musculoskeletal: denies: back pain Neurological: denies: headache Physical Exam - Physical Exam Vital Signs: Vital Signs 04/14/19 11:06 Temperature 97.4 F L Pulse Rate 63 Respiratory 18 Rate Blood Pressure 120/68 O2 Sat by Pulse 97 Oximetry Physical Exam: GENERAL: The patient is well-developed well-nourished female lying on stretcher appearing to be in mild discomfort. [] HEENT: Normocephalic. Atraumatic. Extraocular motions are intact. Patient has moist mucous membranes. NECK: Supple. Trachea midline CHEST/LUNGS: Clear to auscultation. There is no respiratory distress noted. HEART/CARDIOVASCULAR: Regular. There is no tachycardia. There is no gallop rub or murmur. ABDOMEN: Abdomen is soft, nontender. Patient has normal bowel sounds. There is no abdominal distention. SKIN: There is no diaphoresis. NEURO: The patient is awake, alert, and oriented. The patient is cooperative. The patient has normal speech MUSCULOSKELETAL: There is no evidence of acute injury. ED Course Vital Signs 04/14/19 11:06 Temperature 97.4 F L Pulse Rate 63 Respiratory 18 Rate Blood Pressure 120/68 O2 Sat by Pulse 97 Oximetry - Consultations Consultation #1: 04/14/19 12:54 Nephrology paged 04/14/19 14:19 Case discussed with Mariaa-Dr. Nance will place dialysis orders ED Medical Decision Making - Lab Data Result diagrams: 04/14/19 12:07 04/14/19 12:07 Laboratory Tests 04/14/19 04/14/19 12:07 12:07 WBC 11.4 H RBC 5.08 H Hgb 12.3 Hct 39.6 MCV 78 L MCH 24 L MCHC 31 RDW 25.1 H Plt Count 153 Sodium 135 L Chloride 86.4 L Carbon Dioxide 12 L Anion Gap 44 BUN 109 H Creatinine 10.8 H Estimated GFR 4 BUN/Creatinine Ratio 10 Glucose 98 Calcium 9.9 Total Bilirubin 2.10 H AST 30 ALT 15 Alkaline Phosphatase 130 H Total Protein 9.0 H Albumin 4.5 Albumin/Globulin Ratio 1.0 Lipase 12 L - EKG Data -: EKG Interpreted by Me Rate: bradycardia (51 bpm) - EKG Data When compared to previous EKG there are: previous EKG unavailable Interpretation: other (Junctional rhythm at 51 bpm) - Differential Diagnosis Gastroenteritis, hyperkalemia, uremia Critical care attestation.: If time is entered above; I have spent that time in minutes in the direct care of this critically ill patient, excluding procedure time. ED Disposition Clinical Impression: Nausea & vomiting, ESRD needing dialysis, Hyperkalemia, Junctional rhythm Disposition: DC-01 TO HOME OR SELFCARE Is pt being admited?: No Does the pt Need Aspirin: No Condition: Stable Referrals: PRIMARY CARE, [Primary Care Provider] - 3-5 Days Time of Disposition: 14:20
[2019-04-14 12:35] LABS: Hematocrit 39.6 % (30.3-42.9); Hemoglobin 12.3 gm/dl (10.1-14.3); Mean Corpuscular HGB Conc 31 % (30-34); Mean Corpuscular Volume 78 fl (79-97); Red Blood Count 5.08 M/mm3 (3.65-5.03)
[2019-04-14 12:40] LABS: Platelet Count 153 K/mm3 (140-440); Red Cell Distribution Width 25.1 % (13.2-15.2)
[2019-04-14 12:47] LABS: Albumin 4.5 g/dL (3.9-5); Calcium 9.9 mg/dL (8.4-10.2)
[2019-04-14] MEDS ORDERED: ALBUTEROL 2.5 MG/3 ML NEBU IH ONE (13:05)
[2019-04-14] MEDS ORDERED: INSULIN REGULAR, HUMAN 100 UNITS/1 ML IV ONE (13:05)
[2019-04-14] MEDS ORDERED: SODIUM BICARB 8.4% 50 MEQ/50 ML SYRINGE IV ONE (13:05)
[2019-04-14] MEDS ORDERED: DEXTROSE 50% IN WATER (25GM) 50 ML SYRINGE IV ONE (13:05)
[2019-04-14] MEDS ORDERED: ONDANSETRON 4 MG/2 ML INJ IV PRN (13:14)
[2019-04-14] MEDS ORDERED: ACETAMINOPHEN 325 MG TAB PO PRN (13:14)
[2019-04-14] MEDS ORDERED: SODIUM POLYSTYRENE 15 GM/60 ML ORAL LIQD PO ONE (13:14)
--- NOTE | 2019-04-14 13:25 | History and Physical Report ---
History of Present Illness Chief complaint: I missed dialysis History of present illness: 63 YO Female with HTN, DM, Asthma, Dementia, Obesity Hypoventilation Syndrome, CVA, ESRD on HD(M,W,F), CHF, Cardiomyopathy S/P ICD Placement presents to ED for evaluation. Patient states that she has experienced nausea multiple episodes of vomiting and loose stools over the past 3 days with concomitant weakness over the same timeframe. Patient states that her symptoms prevent her from going to dialysis. Patient states that she has missed multiple dialysis sessions due to the aforementioned symptoms. Patient states that she feels better today with resolution of the aforementioned symptoms. EMS notified and upon arrival the patient was found to be in distress and subsequently transported to [facility] for further care and evaluation. Patient seen and evaluated in the emergency department. Patient found to have end-stage renal disease and in need of urgent dialysis, fluid overload, metabolic acidosis. Nephrology consult placed in the emergency department. Patient placed in observation status and admitted to medical floor. Patient denies fever, chills, chest pain, palpitations, productive cough, skin rash, recent ill contacts. Prior admission on 02/05/2016 reviewed. All medication listed at time of admission has been reconciled. Past History Past Medical History: diabetes, ESRD, heart failure, hypertension, stroke Past Surgical History: Other (Dialysis access) Social history: . denies: smoking, alcohol abuse, prescription drug abuse Family history: CAD, diabetes, hypertension Medications and Allergies Allergies Allergy/AdvReac Type Severity Reaction Status Date / Time No Known Allergies Allergy Verified 06/02/14 09:28 Home Medications Medication Instructions Recorded Confirmed Last Taken Type Aspirin 325 mg PO DAILY 06/02/14 01/09/16 01/08/16 History 325 MG Lovastatin [Altoprev] 40 mg PO DAILY 06/02/14 01/09/16 01/08/16 History 40 MG carvediloL [Coreg] 25 mg PO BID 06/02/14 01/09/16 01/08/16 History 25 MG ISOSORBIDE MONOnitrate [Imdur ER] 60 mg PO QDAY #30 tablet 01/11/16 Unknown Rx NIFEdipine XL [Procardia Xl] 60 mg PO QDAY #30 tablet 02/08/16 Unknown Rx lisinopriL [Zestril TAB] 40 mg PO QDAY #30 tablet 02/08/16 Unknown Rx Active Meds: Active Medications Acetaminophen (Tylenol) 650 mg PO Q4H PRN PRN Reason: Pain MILD(1-3)/Fever >100.5/GROVE Aspirin (Aspirin) 325 mg PO DAILY [facility] Carvedilol (Coreg) 25 mg PO BID [facility] Calcium Gluconate 1,000 mg/ (Sodium Chloride) 110 mls @ 660 mls/hr IV ONCE ONE Stop: 04/14/19 13:39 Isosorbide Mononitrate (Imdur) 60 mg PO QDAY [facility] Lisinopril (Zestril) 40 mg PO QDAY [facility] Miscellaneous Medication (Lovastatin [Altoprev]) 40 mg PO DAILY [facility] Nifedipine (Procardia Xl) 60 mg PO QDAY [facility] Ondansetron HCl (Zofran) 4 mg IV Q8H PRN PRN Reason: Nausea And Vomiting Sodium Chloride (Sodium Chloride Flush Syringe 10 Ml) 10 ml IV BID [facility] Sodium Chloride (Sodium Chloride Flush Syringe 10 Ml) 10 ml IV PRN PRN PRN Reason: LINE FLUSH Review of Systems Constitutional: no weight loss, no weight gain, no fever, no chills Ears, nose, mouth and throat: no ear pain, no ear discharge, no decreased hearing Breasts: no change in shape, no swelling Cardiovascular: no chest pain, no orthopnea, no rapid/irregular heart beat, no edema, no syncope Respiratory: no hemoptysis, no shortness of breath Gastrointestinal: nausea, vomiting, diarrhea, no hematemesis, no coffee ground emesis, no BRBPR, no melena, no early satiety Genitourinary Female: no pelvic pain, no flank pain, no menorrhagia, no dysuria, no urinary frequency, no urgency Rectal: no pain, no incontinence, no bleeding Musculoskeletal: no neck stiffness, no neck pain, no shooting arm pain, no arm numbness/tingling, no low back pain Integumentary: no rash, no pruritis, no sores, no wounds, no jaundice Neurological: no head injury, no transient paralysis, no parathesias, no syncope Psychiatric: no anxiety, no change in sleep habits, no sleep disturbances, no hypersomnia, no change in appetite, no change in libido, no suicidal ideation, no disorientation Endocrine: no cold intolerance, no polyphagia, no polydipsia, no nocturia Hematologic/Lymphatic: no easy bruising, no lymphadenopathy, no lymphedema Allergic/Immunologic: no urticaria, no allergic rhinitis, no persistent infections, no anaphylaxis, no angioedema Exam - Constitutional Vitals: Temp Pulse Resp BP Pulse Ox 97.4 F L 63 18 120/68 97 04/14/19 11:06 04/14/19 11:06 04/14/19 12:16 04/14/19 11:06 04/14/19 11:06 General appearance: Present: mild distress, obese - EENT Eyes: Present: PERRL ENT: hearing intact, clear oral mucosa - Neck Neck: Present: supple, normal ROM - Respiratory Respiratory effort: normal Respiratory: bilateral: diminished, rhonchi - Cardiovascular Heart Sounds: Present: S1 & S2. Absent: rub, click - Extremities Extremities: pulses symmetrical, No edema Peripheral Pulses: within normal limits - Abdominal General gastrointestinal: Present: soft, non-tender, non-distended, normal bowel sounds Female genitourinary: Present: normal - Integumentary Integumentary: Present: clear, warm, dry - Musculoskeletal Musculoskeletal: gait normal, strength equal bilaterally - Psychiatric Psychiatric: appropriate mood/affect, intact judgment & insight - Neurologic Neurologic: CNII-XII intact, moves all extremities Results - Labs CBC & Chem 7: 04/14/19 12:07 04/14/19 12:07 Labs: Abnormal lab results 04/14/19 04/14/19 Range/Units 12:07 12:07 WBC 11.4 H (4.5-11.0) K/mm3 RBC 5.08 H (3.65-5.03) M/mm3 MCV 78 L (79-97) fl MCH 24 L (28-32) pg RDW 25.1 H (13.2-15.2) % Sodium 135 L (137-145) mmol/L Potassium 8.0 H* (3.6-5.0) mmol/L Chloride 86.4 L (98-107) mmol/L Carbon Dioxide 12 L (22-30) mmol/L BUN 109 H (7-17) mg/dL Creatinine 10.8 H (0.7-1.2) mg/dL Total Bilirubin 2.10 H (0.1-1.2) mg/dL Alkaline Phosphatase 130 H (35-129) units/L Total Protein 9.0 H (6.3-8.2) g/dL Lipase 12 L (13-60) units/L Assessment and Plan - Patient Problems (1) End stage renal disease Current Visit: Yes Status: Acute (2) Acidosis Current Visit: Yes Status: Acute (3) Hypertension Current Visit: Yes Status: Acute Qualifiers: Hypertension type: essential hypertension Qualified Code(s): I10 - Essential (primary) hypertension Plan to address problem: Monitor blood pressure every shift, supportive care. (4) Diabetes Current Visit: Yes Status: Acute Plan to address problem: Sliding scale insulin therapy, consistent carbohydrate diet, Accu-Chek, hypoglycemia protocol (5) Obesity hypoventilation syndrome Current Visit: Yes Status: Acute Plan to address problem: Supplemental oxygen nebulizer therapy, chest x-ray, pulse oximetry, noninvasive positive pressure ventilation as clinically indicated, balanced diet at discharge (6) Hyperkalemia Current Visit: Yes Status: Acute Plan to address problem: Calcium gluconate, Kayexalate, urgent dialysis, insulin, D50, repeat BMP in a.m. No EKG changes. (7) CHF (congestive heart failure) Current Visit: Yes Status: Acute Qualifiers: Heart failure type: diastolic Heart failure chronicity: chronic Qualified Code(s): I50.32 - Chronic diastolic (congestive) heart failure Plan to address problem: Currently compensated. Strict I's/O, daily weight, monitor urine output every shift, blood pressure control, supplemental oxygen, (8) DVT prophylaxis Current Visit: Yes Status: Acute Plan to address problem: SCD to bilateral lower extremities while in bed, patient is ambulatory (9) Advance care planning Current Visit: Yes Status: Acute Plan to address problem: Patient is full code, disease education conducted, patient counseled regarding noncompliance with dialysis. Patient and daughter acknowledged understanding and agreement with care plan. +30 minutes.
[2019-04-14] MEDS ORDERED: CALCIUM GLUCONATE 1,000 MG in SODIUM CHLORIDE 0.9% 100 ML IV ONE (13:30)
[2019-04-14 14:18] LABS: Basophils % (Manual) 0 % (0.0-1.8); Eosinophils % (Manual) 0 % (0.0-4.3); Total Cells Counted 100
[2019-04-14 14:19] LABS: Anisocytosis 2+; Burr Cells 1+; Hypochromasia 1+; Schistocytes 1+
[2019-04-14 14:20] LABS: Platelet Estimate Consistent w Auto
--- NOTE | 2019-04-14 16:59 | Consultation ---
History of Present Illness - Reason for Consult Consult date: 04/14/19 end stage renal disease, hyperkalemia - History of Present Illness This is a 63 year-old woman with ESRD who presents for nausea, vomiting. Patient usually dialyzes / at [facility]. Last HD . Den ies any recent issues with HD, including dizziness, lightheadedness, cramping, chest pain on HD. Missed past three sessions due to symptoms noted above. Currently, patient denies any issues including dyspnea, edema, access issues, headaches. Does note loose stools Past History Past Medical History: diabetes, ESRD, heart failure, hypertension, stroke Past Surgical History: Other (Dialysis access) Social history: . denies: smoking, alcohol abuse, prescription drug abuse Family history: CAD, diabetes, hypertension Medications and Allergies Allergies Allergy/AdvReac Type Severity Reaction Status Date / Time No Known Allergies Allergy Verified 06/02/14 09:28 Home Medications Medication Instructions Recorded Confirmed Last Taken Type Aspirin 325 mg PO DAILY 06/02/14 01/09/16 01/08/16 History 325 MG Lovastatin [Altoprev] 40 mg PO DAILY 06/02/14 01/09/16 01/08/16 History 40 MG carvediloL [Coreg] 25 mg PO BID 06/02/14 01/09/16 01/08/16 History 25 MG ISOSORBIDE MONOnitrate [Imdur ER] 60 mg PO QDAY #30 tablet 01/11/16 Unknown Rx NIFEdipine XL [Procardia Xl] 60 mg PO QDAY #30 tablet 02/08/16 Unknown Rx lisinopriL [Zestril TAB] 40 mg PO QDAY #30 tablet 02/08/16 Unknown Rx Active Meds: Active Medications Acetaminophen (Tylenol) 650 mg PO Q4H PRN PRN Reason: Pain MILD(1-3)/Fever >100.5/GROVE Aspirin (Aspirin) 325 mg PO DAILY [facility] Carvedilol (Coreg) 25 mg PO BID [facility] Isosorbide Mononitrate (Imdur) 60 mg PO QDAY [facility] Lisinopril (Zestril) 40 mg PO QDAY [facility] Nifedipine (Procardia Xl) 60 mg PO QDAY [facility] Ondansetron HCl (Zofran) 4 mg IV Q8H PRN PRN Reason: Nausea And Vomiting Pravastatin Sodium (Pravachol) 80 mg PO QHS [facility] Sodium Chloride (Sodium Chloride Flush Syringe 10 Ml) 10 ml IV BID [facility] Sodium Chloride (Sodium Chloride Flush Syringe 10 Ml) 10 ml IV PRN PRN PRN Reason: LINE FLUSH Review of Systems Constitutional: fatigue, no weight loss, no fever, no weakness Ears, nose, mouth and throat: no nasal congestion Cardiovascular: no chest pain, no palpitations, no rapid/irregular heart beat Respiratory: shortness of breath, no cough, no dyspnea on exertion Gastrointestinal: abdominal pain, nausea, vomiting, diarrhea, no constipation Musculoskeletal: no neck stiffness, no muscle cramps, no atrophy Integumentary: no rash Neurological: no headaches Psychiatric: no anxiety Exam - Vital Signs Vital signs: Vital Signs Temp Pulse Resp BP Pulse Ox 97.4 F L 63 18 120/68 97 04/14/19 11:06 04/14/19 11:06 04/14/19 11:06 04/14/19 11:06 04/14/19 11:06 - Physical Exam Narrative exam: Constitutional: no acute distress, obese Head: NC/AT Neck: supple Lungs: decreased breath sounds CV: RRR, no M/R/G Abdomen: soft, non-tender, bowel sounds present Back: nontender Extremities: 1+ edema, pulses WNL Skin: intact Neuro: no focal deficits, alert and oriented x3 Results - Lab Results 04/14/19 12:07 04/14/19 12:07 Most recent lab results Calcium 9.9 mg/dL (8.4-10.2) 04/14/19 12:07 Assessment and Plan This is a 63 year old woman who presents with missed HD, nausea, vomiting, found to have azotemia, hyperkalemia, acidosis. # ESRD: HD today given hyperkalemia and acidosis for 2 hour run, will plan for HD again tomorrow to avoid disequilibrium symptoms given azotemia - daily labs - renally dose meds - avoid nephrotoxins - renal diet # Hyperkalemia: critically high K of 8.0 noted, appreciate medical management for temporary measures. HD today with 2K bath, likely will need HD again tomorrow # Acidosis: 35meq bath # Azotemia: short HD run today to avoid dialysis disequilibrium given duration of missed HD # Anemia: last hemoglobin at goal, no ESAs indicated # HTN: minimal UF today, BP reasonable. UF more aggressively with HD tomorrow # Secondary Hyperparathyroidism: continue home binders as needed
[2019-04-14] MEDS ORDERED: SODIUM CHLORIDE 0.9% 100 ML IV PRN ×2 (17:06→17:20)
[2019-04-14 18:09] LABS: Hepatitis B Surface Antigen Non-Reactive (Negative); Hepatitis C Virus Antibody Non-Reactive (NonReactive)
[2019-04-14] MEDS ORDERED: SODIUM CHLORIDE*PRIMING MACHINE ONLY FOR DIALYSIS MC ONE (20:12)
[2019-04-14] MEDS: carvediloL 25 MG TAB PO SCH (21:59)
[2019-04-14] MEDS: PRAVASTATIN 80 MG TAB PO SCH (21:59)
[2019-04-15] MEDS ORDERED: NON-FORMULARY EACH (Lovastatin [Altoprev] 40 MG) PO SCH (10:00)
[2019-04-15] MEDS ORDERED: NIFEdipine XL 60 MG TAB PO SCH (10:00)
[2019-04-15] MEDS ORDERED: LISINOPRIL 40 MG TAB PO SCH (10:00)
[2019-04-15] MEDS: carvediloL 25 MG TAB PO SCH (10:00)
[2019-04-15] MEDS ORDERED: NIFEdipine XL 30 MG TAB PO SCH (10:00)
[2019-04-15] MEDS: ASPIRIN 325 MG TAB PO SCH (10:41)
[2019-04-15] MEDS ORDERED: SODIUM CHLORIDE 0.9% 500 ML 500 ML IV ONE (11:00)
--- NOTE | 2019-04-15 11:52 | Progress Note ---
Assessment and Plan This is a 63 year old woman who presents with missed HD, nausea, vomiting, found to have azotemia, hyperkalemia, acidosis. # ESRD: HD yesterday on admission given hyperkalemia and acidosis for 2 hour run. Unable to run HD today due to BP. Repeat labs pending, will hold off HD today if able based on labs. - daily labs - renally dose meds - avoid nephrotoxins - renal diet # Hyperkalemia: critically high K of 8.0 noted on admission. Recheck K today. If remains high, may need to be transferred to ICU given hypotension for HD # Acidosis: 35meq bath, recheck # Azotemia: short HD run yesterday to avoid dialysis disequilibrium given duration of missed HD, less altered today # Anemia: last hemoglobin at goal, no ESAs indicated # HTN: minimal UF given soft BPs. Stopped carvedilol, lisinopril, nifedipine for now, can restart once more stable # Secondary Hyperparathyroidism: continue home binders as needed Subjective Date of service: 04/15/19 Interval history: Had HD last night for 2 hour run. Feeling better today, still drowsy though. Breathing improved. Did go down for HD this morning but was found to have low BP to 70s systolic and did not get HD. Objective - Exam Narrative Exam: Constitutional: no acute distress, obese, drowsy Head: NC/AT Neck: supple Lungs: decreased breath sounds CV: RRR, no M/R/G Abdomen: soft, non-tender, bowel sounds present Back: nontender Extremities: 1+ edema, pulses WNL Skin: intact Neuro: no focal deficits, alert and oriented x3 - Vital Signs Vital signs: Vital Signs - 12hr 04/15/19 05:53 Temperature 97.5 F L Pulse Rate 60 Respiratory 16 Rate Blood Pressure 91/43 O2 Sat by Pulse 95 Oximetry - Lab 04/14/19 12:07 04/14/19 12:07 Most recent lab results Calcium 9.9 mg/dL (8.4-10.2) 04/14/19 12:07 Medications & Allergies - Medications Allergies/Adverse Reactions: Allergies No Known Allergies Allergy (Verified 06/02/14 09:28) Home Medications: Home Medications Medication Instructions Recorded Confirmed Last Taken Type Aspirin 325 mg PO DAILY 06/02/14 01/09/16 01/08/16 History 325 MG Lovastatin [Altoprev] 40 mg PO DAILY 06/02/14 01/09/16 01/08/16 History 40 MG carvediloL [Coreg] 25 mg PO BID 06/02/14 01/09/16 01/08/16 History 25 MG ISOSORBIDE MONOnitrate [Imdur ER] 60 mg PO QDAY #30 tablet 01/11/16 Unknown Rx NIFEdipine XL [Procardia Xl] 60 mg PO QDAY #30 tablet 02/08/16 Unknown Rx lisinopriL [Zestril TAB] 40 mg PO QDAY #30 tablet 02/08/16 Unknown Rx Active Medications: Generic Name Dose Route Start Last Admin Trade Name Freq PRN Reason Stop Dose Admin Acetaminophen 650 mg 04/14/19 13:14 Tylenol PO Q4H PRN Pain MILD(1-3)/Fever >100.5/GROVE Aspirin 325 mg 04/15/19 10:00 04/15/19 10:41 Aspirin PO 325 mg DAILY [facility] Administration Carvedilol 25 mg 04/14/19 22:00 04/14/19 21:59 Coreg PO 25 mg BID [facility] Administration Sodium Chloride 100 mls @ 999 mls/hr 04/14/19 17:06 Nacl 0.9% IV NAOMI PRN Hypotension Isosorbide Mononitrate 60 mg 04/15/19 10:00 Imdur PO QDAY [facility] Lisinopril 40 mg 04/15/19 10:00 Zestril PO QDAY [facility] Nifedipine 60 mg 04/15/19 10:00 Procardia Xl PO QDAY [facility] Ondansetron HCl 4 mg 04/14/19 13:14 Zofran IV Q8H PRN Nausea And Vomiting Pravastatin Sodium 80 mg 04/14/19 22:00 04/14/19 21:59 Pravachol PO 80 mg QHS [facility] Administration Sodium Chloride 10 ml 04/14/19 22:00 04/15/19 10:42 Sodium Chloride Flush Syringe 10 Ml IV 10 ml BID [facility] Administration Sodium Chloride 10 ml 04/14/19 13:14 Sodium Chloride Flush Syringe 10 Ml IV PRN PRN LINE FLUSH
--- NOTE | 2019-04-15 15:43 | Progress Note ---
Assessment and Plan (1)Hypotension Patient being transferred to ICU for vasopressor (2) End stage renal disease Current Visit: Yes Status: Acute Hemodialysis once blood pressure stable (2) Acidosis Current Visit: Yes Status: Acute Hemodialysis (3) Hypertension Current Visit: Yes Status: Acute Qualifiers: Hypertension type: essential hypertension Qualified Code(s): I10 - Essential (primary) hypertension Plan to address problem: Monitor blood pressure every shift, supportive care. Patient hypotensive now (4) Diabetes Current Visit: Yes Status: Acute Plan to address problem: Sliding scale insulin therapy, consistent carbohydrate diet, Accu-Chek, hypoglycemia protocol Coverage for now (5) Obesity hypoventilation syndrome Current Visit: Yes Status: Acute Plan to address problem: Supplemental oxygen nebulizer therapy, chest x-ray, pulse oximetry, noninvasive positive pressure ventilation as clinically indicated, balanced diet at discharge (6) Hyperkalemia Current Visit: Yes Status: Acute Plan to address problem: Calcium gluconate, Kayexalate, urgent dialysis, insulin, D50, repeat BMP in a.m. No EKG changes. Potassium level corrected (7) CHF (congestive heart failure) exacerbation Secondary to volume overload Current Visit: Yes Status: Acute Qualifiers: Heart failure type: diastolic Heart failure chronicity: chronic Qualified Code(s): I50.32 - Chronic diastolic (congestive) heart failure Plan to address problem: Currently compensated. Strict I's/O, daily weight, monitor urine output every shift, blood pressure control, supplemental oxygen, (8) DVT prophylaxis Current Visit: Yes Status: Acute Plan to address problem: SCD to bilateral lower extremities while in bed, patient is ambulatory (9) Advance care planning Current Visit: Yes Status: Acute Plan to address problem: Patient is full code, disease education conducted, patient counseled regarding noncompliance with dialysis. Patient and daughter acknowledged understanding and agreement with care plan. +30 minutes. Subjective Date of service: 04/15/19 Principal diagnosis: Volume overload and congestive heart failure Interval history: 63-year-old female with history of hypertension, end-stage renal disease, cardiomyopathy and cerebrovascular accident, hypoventilation syndrome secondary to obesity presents with 3 days of vomiting and nausea and loose stools. This prevented her from going to the dialysis. Patient had missed dialysis. Patient in respiratory distress. EMS was called. Patient was in fluid overload hence admission. Interval improvement. Objective - Constitutional Vitals: Vital Signs - 12hr 04/15/19 04/15/19 04/15/19 05:53 12:27 12:39 Temperature 97.5 F L 97.8 F Pulse Rate 60 59 L Respiratory 16 18 Rate Blood Pressure 91/43 183/155 O2 Sat by Pulse 95 73 L 88 Oximetry General appearance: Present: mild distress, well-nourished - EENT Eyes: PERRL, EOM intact ENT: hearing intact, clear oral mucosa Ears: bilateral: normal - Neck Neck: supple, normal ROM - Respiratory Respiratory effort: normal Respiratory: bilateral: CTA - Breasts Breasts: normal - Cardiovascular Heart rate: 76 Rhythm: regular Heart Sounds: Present: S1 & S2. Absent: gallop, rub Extremities: no ischemia, pulses intact, No edema, normal color, Full ROM - Gastrointestinal General gastrointestinal: Present: soft, non-tender, non-distended, normal bowel sounds - Genitourinary Female genitourinary: normal - Integumentary Integumentary: clear, warm, dry - Musculoskeletal Musculoskeletal: 1, strength equal bilaterally - Neurologic Neurologic: moves all extremities - Psychiatric Psychiatric: memory intact, appropriate mood/affect, intact judgment & insight - Labs CBC & Chem 7: 04/16/19 05:36 04/17/19 04:52 Labs: Abnormal lab results 04/14/19 04/15/19 04/15/19 Range/Units 21:14 08:14 10:06 Sodium 135 L (137-145) mmol/L Potassium 5.2 H D (3.6-5.0) mmol/L Chloride 95.7 L (98-107) mmol/L Carbon Dioxide 18 L (22-30) mmol/L BUN 71 H (7-17) mg/dL Creatinine 8.2 H (0.7-1.2) mg/dL Glucose 107 H (65-100) mg/dL POC Glucose 121 H 124 H (70-105) Calcium 8.0 L D (8.4-10.2) mg/dL 04/15/19 Range/Units 11:40 Sodium (137-145) mmol/L Potassium (3.6-5.0) mmol/L Chloride (98-107) mmol/L Carbon Dioxide (22-30) mmol/L BUN (7-17) mg/dL Creatinine (0.7-1.2) mg/dL Glucose (65-100) mg/dL POC Glucose 114 H (70-105) Calcium (8.4-10.2) mg/dL
[2019-04-15] MEDS: PRAVASTATIN 80 MG TAB PO SCH (22:13)
[2019-04-16] MEDS ORDERED: SODIUM CHLORIDE 0.9% 500 ML 500 ML IV ONE ×2 (01:20→21:17)
[2019-04-16 06:02] LABS: Basophils # (Auto) 0.1 K/mm3 (0.0-0.1); Basophils % (Auto) 1.1 % (0.0-1.8); Eosinophils % (Auto) 0.2 % (0.0-4.3); Hemoglobin 10.5 gm/dl (10.1-14.3); Lymphocytes # (Auto) 0.8 K/mm3 (1.2-5.4); Lymphocytes % (Auto) 9.5 % (13.4-35.0); Mean Corpuscular HGB Conc 31 % (30-34); Mean Corpuscular Volume 78 fl (79-97); Monocytes # (Auto) 1.1 K/mm3 (0.0-0.8); Monocytes % (Auto) 13.4 % (0.0-7.3); Red Blood Count 4.37 M/mm3 (3.65-5.03)
[2019-04-16 06:04] LABS: Platelet Count 103 K/mm3 (140-440); Red Cell Distribution Width 24.8 % (13.2-15.2)
[2019-04-16 06:22] LABS: Albumin 3.8 g/dL (3.9-5); Calcium 8.2 mg/dL (8.4-10.2)
[2019-04-16] MEDS ORDERED: ALBUMIN HUMAN 25% (25 GM/100 ML) INJ IV ONE (06:45)
[2019-04-16] MEDS ORDERED: CALCIUM GLUCONATE 1000 MG/10 ML INJ IV STA (06:54)
[2019-04-16] MEDS ORDERED: INSULIN REGULAR, HUMAN 100 UNITS/1 ML IV ONE ×2 (06:54→10:18)
[2019-04-16] MEDS ORDERED: SODIUM BICARB 8.4% 50 MEQ/50 ML SYRINGE IV ONE (06:55)
[2019-04-16] MEDS ORDERED: DEXTROSE 50% IN WATER (25GM) 50 ML SYRINGE IV ONE (06:56)
[2019-04-16] MEDS ORDERED: SODIUM POLYSTYRENE 15 GM/60 ML ORAL LIQD PO ONE ×2 (06:56→16:00)
[2019-04-16] MEDS ORDERED: CALCIUM GLUCONATE 1,000 MG in SODIUM CHLORIDE 0.9% 100 ML IV ONE (07:00)
--- NOTE | 2019-04-16 09:09 | Progress Note ---
Assessment and Plan This is a 63 year old woman who presents with missed HD, nausea, vomiting, found to have azotemia, hyperkalemia, acidosis. # ESRD: HD on admission given hyperkalemia and acidosis for 2 hour run. Unable to run HD yesterday due to BP. Needs HD today for hyperkalemia; because BP remains soft, recommend transfer to ICU in case pressors are needed with HD and to have 1:1 dialysis nursing - daily labs - renally dose meds - avoid nephrotoxins - renal diet # Hyperkalemia: critically high K of 8.0 noted on admission. K 6.9 today, medical management provided in early AM, HD today # Acidosis: 35meq bath # Azotemia # Anemia: last hemoglobin at goal, no ESAs indicated # HTN: minimal UF given soft BPs. Stopped carvedilol, lisinopril, nifedipine for now, can restart once more stable. As noted above, cannot provide HD in dialysis unit with such low BPs, advise transfer to ICU for HD and hyperkalemia. # Secondary Hyperparathyroidism: continue home binders as needed Subjective Date of service: 04/16/19 Interval history: Noted to have K of 6.9 this AM. Denies any specific issues but continues to have low BPs per nursing Objective - Exam Narrative Exam: Constitutional: no acute distress, obese, drowsy Head: NC/AT Neck: supple Lungs: decreased breath sounds CV: RRR, no M/R/G Abdomen: soft, non-tender, bowel sounds present Back: nontender Extremities: 1+ edema, pulses WNL Skin: intact Neuro: no focal deficits, mildly confused appearing - Vital Signs Vital signs: Vital Signs - 12hr 04/15/19 04/15/19 04/16/19 21:25 23:54 04:33 Temperature 97.7 F 97.4 F L Pulse Rate 58 L 56 L 57 L Respiratory 20 22 Rate Blood Pressure 77/43 88/50 80/36 O2 Sat by Pulse 94 94 84 Oximetry - Lab 04/16/19 05:36 04/16/19 05:36 Most recent lab results Calcium 8.2 mg/dL (8.4-10.2) L 04/16/19 05:36 Medications & Allergies - Medications Allergies/Adverse Reactions: Allergies No Known Allergies Allergy (Verified 06/02/14 09:28) Home Medications: Home Medications Medication Instructions Recorded Confirmed Last Taken Type Aspirin 325 mg PO DAILY 06/02/14 01/09/16 01/08/16 History 325 MG Lovastatin [Altoprev] 40 mg PO DAILY 06/02/14 01/09/16 01/08/16 History 40 MG carvediloL [Coreg] 25 mg PO BID 06/02/14 01/09/16 01/08/16 History 25 MG ISOSORBIDE MONOnitrate [Imdur ER] 60 mg PO QDAY #30 tablet 01/11/16 Unknown Rx NIFEdipine XL [Procardia Xl] 60 mg PO QDAY #30 tablet 02/08/16 Unknown Rx lisinopriL [Zestril TAB] 40 mg PO QDAY #30 tablet 02/08/16 Unknown Rx Active Medications: Generic Name Dose Route Start Last Admin Trade Name Freq PRN Reason Stop Dose Admin Acetaminophen 650 mg 04/14/19 13:14 Tylenol PO Q4H PRN Pain MILD(1-3)/Fever >100.5/GROVE Aspirin 325 mg 04/15/19 10:00 04/15/19 10:41 Aspirin PO 325 mg DAILY ABDIEL Administration Sodium Chloride 100 mls @ 999 mls/hr 04/14/19 17:06 Nacl 0.9% IV NAOMI PRN Hypotension Isosorbide Mononitrate 60 mg 04/15/19 10:00 04/15/19 10:00 Imdur PO Not Given QDAY ABDIEL Ondansetron HCl 4 mg 04/14/19 13:14 Zofran IV Q8H PRN Nausea And Vomiting Pravastatin Sodium 80 mg 04/14/19 22:00 04/15/19 22:13 Pravachol PO 80 mg QHS ABDIEL Administration Sodium Chloride 10 ml 04/14/19 22:00 04/15/19 22:14 Sodium Chloride Flush Syringe 10 Ml IV 10 ml BID ABDIEL Administration Sodium Chloride 10 ml 04/14/19 13:14 Sodium Chloride Flush Syringe 10 Ml IV PRN PRN LINE FLUSH
[2019-04-16] MEDS: ASPIRIN 325 MG TAB PO SCH (09:20)
[2019-04-16] MEDS ORDERED: VASOPRESSIN 20 UNIT in SODIUM CHLORIDE 0.9% 100 ML IV SCH (10:00)
--- NOTE | 2019-04-16 10:04 | Progress Note ---
Assessment and Plan (1)Hypotension Patient on vasopressor (2) End stage renal disease Current Visit: Yes Status: Acute Hemodialysis once blood pressure stable (2) Acidosis Current Visit: Yes Status: Acute Hemodialysis (3) Hypertension Current Visit: Yes Status: Acute Qualifiers: Hypertension type: essential hypertension Qualified Code(s): I10 - Essential (primary) hypertension Plan to address problem: Monitor blood pressure every shift, supportive care. Patient hypotensive now (4) Diabetes Current Visit: Yes Status: Acute Plan to address problem: Sliding scale insulin therapy, consistent carbohydrate diet, Accu-Chek, hypoglycemia protocol Coverage for now (5) Obesity hypoventilation syndrome Current Visit: Yes Status: Acute Plan to address problem: Supplemental oxygen nebulizer therapy, chest x-ray, pulse oximetry, noninvasive positive pressure ventilation as clinically indicated, balanced diet at discharge (6) Hyperkalemia Current Visit: Yes Status: Acute Plan to address problem: Calcium gluconate, Kayexalate, urgent dialysis, insulin, D50, repeat BMP in a.m. No EKG changes. Potassium level corrected (7) CHF (congestive heart failure) exacerbation Secondary to volume overload Current Visit: Yes Status: Acute Qualifiers: Heart failure type: diastolic Heart failure chronicity: chronic Qualified Code(s): I50.32 - Chronic diastolic (congestive) heart failure Plan to address problem: Currently compensated. Strict I's/O, daily weight, monitor urine output every shift, blood pressure control, supplemental oxygen, (8) DVT prophylaxis Current Visit: Yes Status: Acute Plan to address problem: SCD to bilateral lower extremities while in bed, patient is ambulatory (9) Advance care planning Current Visit: Yes Status: Acute Plan to address problem: Patient is full code, disease education conducted, patient counseled regarding noncompliance with dialysis. Patient and daughter acknowledged understanding and agreement with care plan. +30 minutes. Subjective Date of service: 04/16/19 Principal diagnosis: Hyperkalemia, volume overload, end-stage renal disease Interval history: 63-year-old female with history of hypertension, end-stage renal disease, cardiomyopathy and cerebrovascular accident, hypoventilation syndrome secondary to obesity presents with 3 days of vomiting and nausea and loose stools. This prevented her from going to the dialysis. Patient had missed dialysis. Patient in respiratory distress. EMS was called. Patient was in fluid overload hence admission. Interval improvement. Objective - Constitutional Vitals: Vital Signs - 12hr 04/15/19 04/16/19 04/16/19 23:54 04:33 09:21 Temperature 97.4 F L Pulse Rate 56 L 57 L 62 Respiratory 22 Rate Blood Pressure 88/50 80/36 87/47 O2 Sat by Pulse 94 84 Oximetry General appearance: Present: no acute distress, well-nourished - EENT Eyes: PERRL, EOM intact ENT: hearing intact, clear oral mucosa Ears: bilateral: normal - Neck Neck: supple, normal ROM - Respiratory Respiratory effort: normal Respiratory: bilateral: CTA - Breasts Breasts: normal - Cardiovascular Rhythm: regular Heart Sounds: Present: S1 & S2. Absent: gallop, rub Extremities: pulses intact, No edema, normal color, Full ROM - Gastrointestinal General gastrointestinal: Present: soft, non-tender, non-distended, normal bowel sounds - Genitourinary Female genitourinary: normal - Integumentary Integumentary: clear, warm, dry - Musculoskeletal Musculoskeletal: 1, strength equal bilaterally - Neurologic Neurologic: moves all extremities - Psychiatric Psychiatric: memory intact, appropriate mood/affect, intact judgment & insight - Labs CBC & Chem 7: 04/16/19 05:36 04/17/19 04:52 Labs: Abnormal lab results 04/15/19 04/15/19 04/15/19 Range/Units 10:06 11:40 15:45 MCV (79-97) fl MCH (28-32) pg RDW (13.2-15.2) % Plt Count (140-440) K/mm3 Lymph % (Auto) (13.4-35.0) % [place] % (Auto) (0.0-7.3) % Lymph # (1.2-5.4) K/mm3 [place] # (0.0-0.8) K/mm3 Seg Neutrophils % (40.0-70.0) % Sodium 135 L (137-145) mmol/L Potassium 5.2 H D (3.6-5.0) mmol/L Chloride 95.7 L (98-107) mmol/L Carbon Dioxide 18 L (22-30) mmol/L BUN 71 H (7-17) mg/dL Creatinine 8.2 H (0.7-1.2) mg/dL Glucose 107 H (65-100) mg/dL POC Glucose 114 H 145 H (70-105) Calcium 8.0 L D (8.4-10.2) mg/dL Albumin (3.9-5) g/dL 04/15/19 04/16/19 04/16/19 Range/Units 21:34 05:36 05:36 MCV 78 L (79-97) fl MCH 24 L (28-32) pg RDW 24.8 H (13.2-15.2) % Plt Count 103 L (140-440) K/mm3 Lymph % (Auto) 9.5 L (13.4-35.0) % [place] % (Auto) 13.4 H (0.0-7.3) % Lymph # 0.8 L (1.2-5.4) K/mm3 [place] # 1.1 H (0.0-0.8) K/mm3 Seg Neutrophils % 75.8 H (40.0-70.0) % Sodium (137-145) mmol/L Potassium 6.9 H* D (3.6-5.0) mmol/L Chloride 92.5 L (98-107) mmol/L Carbon Dioxide 20 L (22-30) mmol/L BUN 79 H (7-17) mg/dL Creatinine 9.0 H (0.7-1.2) mg/dL Glucose (65-100) mg/dL POC Glucose 120 H (70-105) Calcium 8.2 L (8.4-10.2) mg/dL Albumin 3.8 L (3.9-5) g/dL
[2019-04-16] MEDS ORDERED: CALCIUM GLUCONATE 2,000 MG in SODIUM CHLORIDE 0.9% 100 ML IV ONE (10:17)
[2019-04-16] MEDS ORDERED: DEXTROSE 50% IN WATER (25GM) 50 ML SYRINGE IV SCH (11:00)
--- NOTE | 2019-04-16 13:07 | Consultation ---
History of Present Illness Consult date: 04/16/19 Requesting physician: MIAH CEDENO Reason for consult: other (CRITICAL CARE MANAGEMENT) History of present illness: 63 YO Female with HTN, DM, Asthma, Dementia, Obesity Hypoventilation Syndrome, CVA, ESRD on HD(M,W,F), CHF, Cardiomyopathy S/P ICD Placement presents to ED for evaluation. Patient states that she has experienced nausea multiple episodes of vomiting and loose stools over the past 3 days with concomitant weakness over the same timeframe. Patient states that her symptoms prevent her from going to dialysis. Patient states that she has missed multiple dialysis sessions due to the aforementioned symptoms. Patient states that she feels better today with resolution of the aforementioned symptoms. EMS notified and upon arrival the patient was found to be in distress and subsequently transported to [facility] for further care and evaluation. Patient seen and evaluated in the emergency department. Patient found to have end-stage renal disease and in need of urgent dialysis, fluid overload, metabolic acidosis. She has been transferred to the ICU for emergent UF/HD I have been consulted fro critical care management. Thank you for the consult. Patient was seen and examined. Vitals, labs, medications, chart reviewed. She is lying in position with a 100% NRBM on with oxygen saturations of 92 % Past History Past Medical History: diabetes, ESRD, heart failure, hypertension, stroke Past Surgical History: Other (Dialysis access) Social history: . denies: smoking, alcohol abuse, prescription drug abuse Family history: CAD, diabetes, hypertension Medications and Allergies Allergies Allergy/AdvReac Type Severity Reaction Status Date / Time No Known Allergies Allergy Verified 06/02/14 09:28 Home Medications Medication Instructions Recorded Confirmed Last Taken Type Aspirin 325 mg PO DAILY 06/02/14 04/16/19 01/08/16 History 325 MG Lovastatin [Altoprev] 40 mg PO DAILY 06/02/14 04/16/19 01/08/16 History 40 MG carvediloL [Coreg] 25 mg PO BID 06/02/14 04/16/19 01/08/16 History 25 MG ISOSORBIDE MONOnitrate [Imdur ER] 60 mg PO QDAY #30 tablet 01/11/16 04/16/19 Unknown Rx NIFEdipine XL [Procardia Xl] 60 mg PO QDAY #30 tablet 02/08/16 04/16/19 Unknown Rx lisinopriL [Zestril TAB] 40 mg PO QDAY #30 tablet 02/08/16 04/16/19 Unknown Rx Active Meds: Active Medications Acetaminophen (Tylenol) 650 mg PO Q4H PRN PRN Reason: Pain MILD(1-3)/Fever >100.5/GROVE Aspirin (Aspirin) 325 mg PO DAILY [facility] Last Admin: 04/16/19 09:20 Dose: 325 mg Documented by: Dextrose (D50w (25gm) Syringe) 0 ml IV ONCE ABDIEL Sodium Chloride (Nacl 0.9%) 100 mls @ 999 mls/hr IV NAOMI PRN PRN Reason: Hypotension Vasopressin 20 unit/ Sodium (Chloride) 101 mls @ 9.09 mls/hr IV TITR ABDIEL; Protocol Isosorbide Mononitrate (Imdur) 60 mg PO QDAY [facility] Last Admin: 04/16/19 09:21 Dose: Not Given Documented by: Ondansetron HCl (Zofran) 4 mg IV Q8H PRN PRN Reason: Nausea And Vomiting Pravastatin Sodium (Pravachol) 80 mg PO QHS [facility] Last Admin: 04/15/19 22:13 Dose: 80 mg Documented by: Sodium Chloride (Sodium Chloride Flush Syringe 10 Ml) 10 ml IV BID [facility] Last Admin: 04/16/19 09:22 Dose: 10 ml Documented by: Sodium Chloride (Sodium Chloride Flush Syringe 10 Ml) 10 ml IV PRN PRN PRN Reason: LINE FLUSH Review of Systems ROS unobtainable: due to mental status Physical Examination Vital signs: Vital Signs Temp Pulse Resp BP Pulse Ox 97.4 F L 63 18 120/68 97 04/14/19 11:06 04/14/19 11:06 04/14/19 11:06 04/14/19 11:06 04/14/19 11:06 General appearance: appears uncomfortable, other (on 100% NRBM) ENT: oropharynx dry Neck: supple, no lymphadenopathy, JVD Effort: mildly labored Ascultation: Bilateral: diminished breath sounds, rales Cardiovascular: other (Tachycardia) Gastrointestinal: normoactive bowel sounds, soft, non-tender Extremities: no cyanosis, no edema non-focal exam, other (difficult to arouse) other (unable to assess due to mental status) Results - Laboratory Findings CBC and BMP: 04/16/19 05:36 04/16/19 05:36 Abnormal lab findings: Abnormal Labs 04/14/19 04/14/19 04/14/19 12:07 12:07 21:14 WBC 11.4 H RBC 5.08 H MCV 78 L MCH 24 L RDW 25.1 H Plt Count Lymph % (Auto) [place] % (Auto) Lymph # [place] # Seg Neutrophils % Seg Neuts % (Manual) 80.0 H Lymphocytes % (Manual) 9.0 L Monocytes % (Manual) 11.0 H Seg Neutrophils # Man 9.1 H Lymphocytes # (Manual) 1.0 L Monocytes # (Manual) 1.3 H Sodium 135 L Potassium 8.0 H* Chloride 86.4 L Carbon Dioxide 12 L BUN 109 H Creatinine 10.8 H Glucose POC Glucose 121 H Calcium Total Bilirubin 2.10 H Alkaline Phosphatase 130 H Total Protein 9.0 H Albumin Lipase 12 L 04/15/19 04/15/19 04/15/19 08:14 10:06 11:40 WBC RBC MCV MCH RDW Plt Count Lymph % (Auto) [place] % (Auto) Lymph # [place] # Seg Neutrophils % Seg Neuts % (Manual) Lymphocytes % (Manual) Monocytes % (Manual) Seg Neutrophils # Man Lymphocytes # (Manual) Monocytes # (Manual) Sodium 135 L Potassium 5.2 H D Chloride 95.7 L Carbon Dioxide 18 L BUN 71 H Creatinine 8.2 H Glucose 107 H POC Glucose 124 H 114 H Calcium 8.0 L D Total Bilirubin Alkaline Phosphatase Total Protein Albumin Lipase 04/15/19 04/15/19 04/16/19 15:45 21:34 05:36 WBC RBC MCV 78 L MCH 24 L RDW 24.8 H Plt Count 103 L Lymph % (Auto) 9.5 L [place] % (Auto) 13.4 H Lymph # 0.8 L [place] # 1.1 H Seg Neutrophils % 75.8 H Seg Neuts % (Manual) Lymphocytes % (Manual) Monocytes % (Manual) Seg Neutrophils # Man Lymphocytes # (Manual) Monocytes # (Manual) Sodium Potassium Chloride Carbon Dioxide BUN Creatinine Glucose POC Glucose 145 H 120 H Calcium Total Bilirubin Alkaline Phosphatase Total Protein Albumin Lipase 04/16/19 04/16/19 05:36 11:12 WBC RBC MCV MCH RDW Plt Count Lymph % (Auto) [place] % (Auto) Lymph # [place] # Seg Neutrophils % Seg Neuts % (Manual) Lymphocytes % (Manual) Monocytes % (Manual) Seg Neutrophils # Man Lymphocytes # (Manual) Monocytes # (Manual) Sodium Potassium 6.9 H* D Chloride 92.5 L Carbon Dioxide 20 L BUN 79 H Creatinine 9.0 H Glucose POC Glucose 177 H Calcium 8.2 L Total Bilirubin Alkaline Phosphatase Total Protein Albumin 3.8 L Lipase Assessment and Plan -Hypotension -Acute metabolic encephalopathy -Pulmonary edema- clinically -Severe hyperkalemia -Metabolic acidosis -ESRD -Azotemia, nausea and vomiting Recommendations -Admit ICU for emergent HD for severe hyperkalemia and metabolic acidosis, clinically appears to be in pulmonary edema -ABG, CXR -Medical management of hyperkalemia- administer kayexalate -Aspiration precautions -Hold all anti-hypertensives, will re-introduce when her hemodynamics are more stable -Supplemental oxygen keep O2 sats >90. wean as tolerated. -Aspiration precautions -Vasopressor support as indicated to keep MAP>65 -Anti-emetics and supportive care -Monitor in the ICU at risk of arrhythmias and PEA arrest from metabolic/electrolyte derangements CONDITION: CRITICAL PROGNOSIS: GUARDED CODE STATUS: FULL CODE The high probability of a clinically significant, sudden or life-threatening deterioration of the respiratory, cardiovascular, renal systems required my full and direct attention, intervention and personal management. The aggregate critical care time was [35] minutes without overlap. Time includes spent on; [x] Data Review and interpretation [x] Patient assessment and monitoring of vital signs [x] Documentation [x] Medication orders and management
[2019-04-16] MEDS: PRAVASTATIN 80 MG TAB PO SCH (21:38)
[2019-04-17 05:26] LABS: ABG Base Excess 1.3 mmol/L (-2.0-3.0); ABG HCO3 28.1 mmol/L (20.0-26.0); ABG Methemoglobin 0.5 % (0.0-1.5); ABG Oxygen Saturation 98.5 % (95.0-99.0); ABG PH 7.319 pH Units (7.350-7.450); ABG PO2 137.3 mm Hg (80.0-90.0)
--- NOTE | 2019-04-17 06:34 | XRay Report ---
CHEST 1 VIEW INDICATION / CLINICAL INFORMATION: Pulmonary edema. COMPARISON: 02/05/2016 FINDINGS: SUPPORT DEVICES: Pacemaker/defibrillator device stable in position. HEART / MEDIASTINUM: Enlarged, stable. LUNGS / PLEURA: Small right pleural effusion is present. Left lung is well expanded and clear. No int erstitial pulmonary edema. No pneumothorax. ADDITIONAL FINDINGS: No significant additional findings. IMPRESSION: 1. Small right pleural effusion. No interstitial pulmonary edema identified. 2. Stable cardiomegaly. Signer Name: Katelynn Keenan MD Signed: 04/17/2019 6:30 AM Workstation Name: [id number]
--- NOTE | 2019-04-17 09:40 | Progress Note ---
Assessment and Plan (1)Hypotension Patient on vasopressor (2) End stage renal disease Current Visit: Yes Status: Acute Hemodialysis once blood pressure stable (2) Acidosis Current Visit: Yes Status: Acute Hemodialysis (3) Hypertension Current Visit: Yes Status: Acute Qualifiers: Hypertension type: essential hypertension Qualified Code(s): I10 - Essential (primary) hypertension Plan to address problem: Monitor blood pressure every shift, supportive care. Patient hypotensive now (4) Diabetes Current Visit: Yes Status: Acute Plan to address problem: Sliding scale insulin therapy, consistent carbohydrate diet, Accu-Chek, hypoglycemia protocol Coverage for now (5) Obesity hypoventilation syndrome Current Visit: Yes Status: Acute Plan to address problem: Supplemental oxygen nebulizer therapy, chest x-ray, pulse oximetry, noninvasive positive pressure ventilation as clinically indicated, balanced diet at discharge (6) Hyperkalemia Current Visit: Yes Status: Acute Plan to address problem: Calcium gluconate, Kayexalate, urgent dialysis, insulin, D50, repeat BMP in a.m. No EKG changes. Potassium level corrected (7) CHF (congestive heart failure) exacerbation Secondary to volume overload Current Visit: Yes Status: Acute Qualifiers: Heart failure type: diastolic Heart failure chronicity: chronic Qualified Code(s): I50.32 - Chronic diastolic (congestive) heart failure Plan to address problem: Currently compensated. Strict I's/O, daily weight, monitor urine output every shift, blood pressure control, supplemental oxygen, (8) DVT prophylaxis Current Visit: Yes Status: Acute Plan to address problem: SCD to bilateral lower extremities while in bed, patient is ambulatory (9) Advance care planning Current Visit: Yes Status: Acute Plan to address problem: Patient is full code, disease education conducted, patient counseled regarding noncompliance with dialysis. Patient and daughter acknowledged understanding and agreement with care plan. +30 minutes. Subjective Date of service: 04/17/19 Principal diagnosis: Hyperkalemia, volume overload, end-stage renal disease Interval history: 63-year-old female with history of hypertension, end-stage renal disease, cardiomyopathy and cerebrovascular accident, hypoventilation syndrome secondary to obesity presents with 3 days of vomiting and nausea and loose stools. This prevented her from going to the dialysis. Patient had missed dialysis. Patient in respiratory distress. EMS was called. Patient was in fluid overload hence admission. Interval improvement. Objective - Constitutional Vitals: Vital Signs - 12hr 04/16/19 04/16/19 04/16/19 21:01 21:15 21:31 Temperature Pulse Rate 70 67 72 Respiratory 13 16 14 Rate Blood Pressure 90/44 86/67 48/26 O2 Sat by Pulse 99 98 100 Oximetry 04/16/19 04/16/19 04/16/19 21:45 22:00 22:15 Temperature Pulse Rate 67 66 62 Respiratory 12 14 12 Rate Blood Pressure 48/26 87/54 108/35 O2 Sat by Pulse 83 L 99 99 Oximetry 04/16/19 04/16/19 04/16/19 22:30 22:45 23:00 Temperature Pulse Rate 64 62 64 Respiratory 13 11 L 13 Rate Blood Pressure 123/39 113/38 100/45 O2 Sat by Pulse 100 100 100 Oximetry 04/16/19 04/16/19 04/16/19 23:15 23:30 23:45 Temperature Pulse Rate 63 65 64 Respiratory 13 16 13 Rate Blood Pressure 100/45 95/38 94/46 O2 Sat by Pulse 100 100 100 Oximetry 04/17/19 04/17/19 04/17/19 00:00 00:02 00:10 Temperature 98.1 F Pulse Rate 58 L 63 59 L Respiratory 12 13 Rate Blood Pressure 111/31 111/31 O2 Sat by Pulse 100 100 Oximetry 04/17/19 04/17/19 04/17/19 00:15 00:30 00:46 Temperature Pulse Rate 62 65 65 Respiratory 12 12 13 Rate Blood Pressure 109/32 116/88 104/29 O2 Sat by Pulse 100 100 100 Oximetry 04/17/19 04/17/19 04/17/19 01:00 01:16 01:30 Temperature Pulse Rate 62 68 68 Respiratory 13 13 12 Rate Blood Pressure 104/29 87/35 87/35 O2 Sat by Pulse 100 Oximetry 04/17/19 04/17/19 04/17/19 01:46 03:00 03:15 Temperature Pulse Rate 67 70 66 Respiratory 13 13 13 Rate Blood Pressure 104/26 102/44 104/41 O2 Sat by Pulse 100 99 100 Oximetry 04/17/19 04/17/19 04/17/19 03:30 03:45 04:00 Temperature 98.8 F Pulse Rate 68 66 67 Respiratory 14 13 11 L Rate Blood Pressure 87/49 106/39 97/43 O2 Sat by Pulse 100 100 100 Oximetry 04/17/19 04/17/19 04/17/19 04:15 04:30 04:45 Temperature Pulse Rate 66 64 66 Respiratory 13 13 13 Rate Blood Pressure 81/44 81/44 71/39 O2 Sat by Pulse 100 100 100 Oximetry 04/17/19 04/17/19 04/17/19 05:00 05:16 05:30 Temperature Pulse Rate 67 72 72 Respiratory 14 11 L 18 Rate Blood Pressure 71/39 112/37 112/37 O2 Sat by Pulse 100 100 100 Oximetry 04/17/19 04/17/19 04/17/19 05:46 06:00 06:16 Temperature Pulse Rate 66 70 66 Respiratory 16 13 11 L Rate Blood Pressure 109/33 112/37 87/62 O2 Sat by Pulse 100 100 100 Oximetry 04/17/19 04/17/19 04/17/19 06:30 06:46 07:00 Temperature Pulse Rate 73 69 71 Respiratory 13 13 12 Rate Blood Pressure 100/37 95/34 105/47 O2 Sat by Pulse 100 100 100 Oximetry 04/17/19 04/17/19 04/17/19 07:09 07:16 07:30 Temperature 98.0 F Pulse Rate 66 72 Respiratory 14 13 Rate Blood Pressure 105/47 97/40 O2 Sat by Pulse 100 88 83 L Oximetry 04/17/19 04/17/19 04/17/19 07:46 08:00 08:16 Temperature Pulse Rate 67 69 67 Respiratory 9 L 11 L 14 Rate Blood Pressure 95/56 102/49 102/49 O2 Sat by Pulse 100 100 88 Oximetry 04/17/19 04/17/19 04/17/19 08:30 08:46 09:00 Temperature Pulse Rate 68 70 69 Respiratory 13 16 18 Rate Blood Pressure 92/23 102/24 99/27 O2 Sat by Pulse 91 100 100 Oximetry 04/17/19 09:16 Temperature Pulse Rate 69 Respiratory 16 Rate Blood Pressure 97/61 O2 Sat by Pulse Oximetry General appearance: Present: no acute distress, well-nourished - EENT Eyes: PERRL, EOM intact ENT: hearing intact, clear oral mucosa Ears: bilateral: normal - Neck Neck: supple, normal ROM - Respiratory Respiratory effort: normal Respiratory: bilateral: CTA - Breasts Breasts: normal - Cardiovascular Heart rate: 78 Rhythm: regular Heart Sounds: Present: S1 & S2. Absent: gallop, rub Extremities: pulses intact, No edema, normal color, Full ROM - Gastrointestinal General gastrointestinal: Present: soft, non-tender, non-distended, normal bowel sounds - Genitourinary Female genitourinary: normal - Integumentary Integumentary: clear, warm, dry - Musculoskeletal Musculoskeletal: 1, strength equal bilaterally - Neurologic Neurologic: moves all extremities - Psychiatric Psychiatric: memory intact, appropriate mood/affect, intact judgment & insight - Labs CBC & Chem 7: 04/16/19 05:36 04/17/19 04:52 Labs: Abnormal lab results 04/16/19 04/16/19 04/16/19 Range/Units 11:12 16:42 23:04 ABG pH (7.350-7.450) pH Units ABG pO2 (80.0-90.0) mm Hg ABG HCO3 (20.0-26.0) mmol/L ABG Hemoglobin (12.0-16.0) gm/dl Chloride (98-107) mmol/L BUN (7-17) mg/dL Creatinine (0.7-1.2) mg/dL Glucose (65-100) mg/dL POC Glucose 177 H 168 H 128 H (70-105) Calcium (8.4-10.2) mg/dL 04/17/19 04/17/19 Range/Units 04:52 05:07 ABG pH 7.319 L (7.350-7.450) pH Units ABG pO2 137.3 H (80.0-90.0) mm Hg ABG HCO3 28.1 H (20.0-26.0) mmol/L ABG Hemoglobin 10.0 L (12.0-16.0) gm/dl Chloride 96.1 L (98-107) mmol/L BUN 32 H (7-17) mg/dL Creatinine 5.7 H (0.7-1.2) mg/dL Glucose 101 H (65-100) mg/dL POC Glucose (70-105) Calcium 8.0 L (8.4-10.2) mg/dL
[2019-04-17] MEDS: ASPIRIN 325 MG TAB PO SCH (10:00)
--- NOTE | 2019-04-17 10:09 | Progress Note ---
Assessment and Plan This is a 63 year old woman who presents with missed HD, nausea, vomiting, found to have azotemia, hyperkalemia, acidosis. # ESRD: HD on admission given hyperkalemia and acidosis for 2 hour run. HD yesterday in ICU for hyperkalemia with very soft BP - no indication for HD today. Plan for next HD // on 04/18 unless needed earlier - daily labs - renally dose meds - avoid nephrotoxins - renal diet # Hyperkalemia: critically high K of 8.0 noted on admission. K improved today s/p full HD # Acidosis: 35meq bath # Azotemia # Anemia: last hemoglobin at goal, no ESAs indicated # HTN: BP remains low, continue UF as able with HD. Stopped carvedilol, lisinopril, nifedipine for now, can restart once more stable. If BPs are sta ble, likely ok for transfer back to floor from renal perspective # Secondary Hyperparathyroidism: continue home binders as needed Subjective Date of service: 04/17/19 Principal diagnosis: Hyperkalemia, volume overload, end-stage renal disease Interval history: Tolerated HD yesterday. Patient denies any specific issues including cramping, dizziness. Notes improved breathing Objective - Exam Narrative Exam: Constitutional: no acute distress, obese, drowsy Head: NC/AT Neck: supple Lungs: decreased breath sounds CV: RRR, no M/R/G Abdomen: soft, non-tender, bowel sounds present Back: nontender Extremities: 1+ edema, pulses WNL Skin: intact Neuro: no focal deficits, mildly confused appearing - Vital Signs Vital signs: Vital Signs - 12hr 04/16/19 04/16/19 04/16/19 21:15 21:31 21:45 Temperature Pulse Rate 67 72 67 Respiratory 16 14 12 Rate Blood Pressure 86/67 48/26 48/26 O2 Sat by Pulse 98 100 83 L Oximetry 04/16/19 04/16/19 04/16/19 22:00 22:15 22:30 Temperature Pulse Rate 66 62 64 Respiratory 14 12 13 Rate Blood Pressure 87/54 108/35 123/39 O2 Sat by Pulse 99 99 100 Oximetry 04/16/19 04/16/19 04/16/19 22:45 23:00 23:15 Temperature Pulse Rate 62 64 63 Respiratory 11 L 13 13 Rate Blood Pressure 113/38 100/45 100/45 O2 Sat by Pulse 100 100 100 Oximetry 04/16/19 04/16/19 04/17/19 23:30 23:45 00:00 Temperature 98.1 F Pulse Rate 65 64 58 L Respiratory 16 13 12 Rate Blood Pressure 95/38 94/46 111/31 O2 Sat by Pulse 100 100 100 Oximetry 04/17/19 04/17/19 04/17/19 00:02 00:10 00:15 Temperature Pulse Rate 63 59 L 62 Respiratory 13 12 Rate Blood Pressure 111/31 109/32 O2 Sat by Pulse 100 100 Oximetry 04/17/19 04/17/19 04/17/19 00:30 00:46 01:00 Temperature Pulse Rate 65 65 62 Respiratory 12 13 13 Rate Blood Pressure 116/88 104/29 104/29 O2 Sat by Pulse 100 100 100 Oximetry 04/17/19 04/17/19 04/17/19 01:16 01:30 01:46 Temperature Pulse Rate 68 68 67 Respiratory 13 12 13 Rate Blood Pressure 87/35 87/35 104/26 O2 Sat by Pulse 100 Oximetry 04/17/19 04/17/19 04/17/19 03:00 03:15 03:30 Temperature Pulse Rate 70 66 68 Respiratory 13 13 14 Rate Blood Pressure 102/44 104/41 87/49 O2 Sat by Pulse 99 100 100 Oximetry 04/17/19 04/17/19 04/17/19 03:45 04:00 04:15 Temperature 98.8 F Pulse Rate 66 67 66 Respiratory 13 11 L 13 Rate Blood Pressure 106/39 97/43 81/44 O2 Sat by Pulse 100 100 100 Oximetry 04/17/19 04/17/19 04/17/19 04:30 04:45 05:00 Temperature Pulse Rate 64 66 67 Respiratory 13 13 14 Rate Blood Pressure 81/44 71/39 71/39 O2 Sat by Pulse 100 100 100 Oximetry 04/17/19 04/17/19 04/17/19 05:16 05:30 05:46 Temperature Pulse Rate 72 72 66 Respiratory 11 L 18 16 Rate Blood Pressure 112/37 112/37 109/33 O2 Sat by Pulse 100 100 100 Oximetry 04/17/19 04/17/19 04/17/19 06:00 06:16 06:30 Temperature Pulse Rate 70 66 73 Respiratory 13 11 L 13 Rate Blood Pressure 112/37 87/62 100/37 O2 Sat by Pulse 100 100 100 Oximetry 04/17/19 04/17/19 04/17/19 06:46 07:00 07:09 Temperature Pulse Rate 69 71 Respiratory 13 12 Rate Blood Pressure 95/34 105/47 O2 Sat by Pulse 100 100 100 Oximetry 04/17/19 04/17/19 04/17/19 07:16 07:30 07:46 Temperature 98.0 F Pulse Rate 66 72 67 Respiratory 14 13 9 L Rate Blood Pressure 105/47 97/40 95/56 O2 Sat by Pulse 88 83 L 100 Oximetry 04/17/19 04/17/19 04/17/19 08:00 08:16 08:30 Temperature 98 F Pulse Rate 69 67 68 Respiratory 11 L 14 13 Rate Blood Pressure 102/49 102/49 92/23 O2 Sat by Pulse 100 88 91 Oximetry 04/17/19 04/17/19 04/17/19 08:46 09:00 09:16 Temperature Pulse Rate 70 69 69 Respiratory 16 18 16 Rate Blood Pressure 102/24 99/27 97/61 O2 Sat by Pulse 100 100 Oximetry 04/17/19 10:00 Temperature Pulse Rate 69 Respiratory Rate Blood Pressure 102/42 O2 Sat by Pulse Oximetry - Lab 04/16/19 05:36 04/17/19 04:52 Most recent lab results ABG pH 7.319 pH Units (7.350-7.450) L 04/17/19 05:07 ABG pCO2 56.0 mm Hg 04/17/19 05:07 ABG pO2 137.3 mm Hg (80.0-90.0) H 04/17/19 05:07 ABG HCO3 28.1 mmol/L (20.0-26.0) H 04/17/19 05:07 ABG O2 Saturation 98.5 % (95.0-99.0) 04/17/19 05:07 Calcium 8.0 mg/dL (8.4-10.2) L 04/17/19 04:52 Medications & Allergies - Medications Allergies/Adverse Reactions: Allergies No Known Allergies Allergy (Verified 06/02/14 09:28) Home Medications: Home Medications Medication Instructions Recorded Confirmed Last Taken Type Aspirin 325 mg PO DAILY 06/02/14 04/16/19 01/08/16 History 325 MG Lovastatin [Altoprev] 40 mg PO DAILY 06/02/14 04/16/19 01/08/16 History 40 MG carvediloL [Coreg] 25 mg PO BID 06/02/14 04/16/19 01/08/16 History 25 MG ISOSORBIDE MONOnitrate [Imdur ER] 60 mg PO QDAY #30 tablet 01/11/16 04/16/19 Unknown Rx NIFEdipine XL [Procardia Xl] 60 mg PO QDAY #30 tablet 02/08/16 04/16/19 Unknown Rx lisinopriL [Zestril TAB] 40 mg PO QDAY #30 tablet 02/08/16 04/16/19 Unknown Rx Active Medications: Generic Name Dose Route Start Last Admin Trade Name Freq PRN Reason Stop Dose Admin Acetaminophen 650 mg 04/14/19 13:14 04/16/19 13:50 Tylenol PO 650 mg Q4H PRN Administration Pain MILD(1-3)/Fever >100.5/GROVE Aspirin 325 mg 04/15/19 10:00 04/17/19 10:00 Aspirin PO 325 mg DAILY ABDIEL Administration Dextrose 0 ml 04/16/19 11:00 D50w (25gm) Syringe IV ONCE ABDIEL Sodium Chloride 100 mls @ 999 mls/hr 04/14/19 17:06 Nacl 0.9% IV NAOMI PRN Hypotension Vasopressin 20 unit/ Sodium 101 mls @ 9.09 mls/hr 04/16/19 10:00 Chloride IV TITR ABDIEL Protocol 0.03 UNITS/MIN Isosorbide Mononitrate 60 mg 04/15/19 10:00 04/17/19 10:00 Imdur PO Not Given QDAY ABDIEL Ondansetron HCl 4 mg 04/14/19 13:14 Zofran IV Q8H PRN Nausea And Vomiting Pravastatin Sodium 80 mg 04/14/19 22:00 04/16/19 21:38 Pravachol PO 80 mg QHS ABDIEL Administration Sodium Chloride 10 ml 04/14/19 22:00 04/17/19 10:03 Sodium Chloride Flush Syringe 10 Ml IV 10 ml BID ABDIEL Administration Sodium Chloride 10 ml 04/14/19 13:14 Sodium Chloride Flush Syringe 10 Ml IV PRN PRN LINE FLUSH
--- NOTE | 2019-04-17 15:32 | Progress Note ---
Assessment and Plan -Hypotension -Acute metabolic encephalopathy -Pulmonary edema- clinically -Severe hyperkalemia -Metabolic acidosis -ESRD -Azotemia, nausea and vomiting Recommendations -Admit ICU for emergent HD for severe hyperkalemia and metabolic acidosis, clinically appears to be in pulmonary edema -ABG, CXR -Medical management of hyperkalemia- administer kayexalate -Aspiration precautions -Hold all anti-hypertensives, will re-introduce when her hemodynamics are more stable -Supplemental oxygen keep O2 sats >90. wean as tolerated. -Aspiration precautions -Vasopressor support as indicated to keep MAP>65 -Anti-emetics and supportive care -Monitor in the ICU at risk of arrhythmias and PEA arrest from metabolic/electro lyte derangements CONDITION: CRITICAL PROGNOSIS: GUARDED CODE STATUS: FULL CODE The high probability of a clinically significant, sudden or life-threatening deterioration of the respiratory, cardiovascular, renal systems required my full and direct attention, intervention and personal management. The aggregate critical care time was [35] minutes without overlap. Time includes spent on; [x] Data Review and interpretation [x] Patient assessment and monitoring of vital signs [x] Documentation [x] Medication orders and management Subjective Date of service: 04/17/19 Principal diagnosis: Hyperkalemia, volume overload, end-stage renal disease Objective Vital Signs - 12hr 04/17/19 04/17/19 04/17/19 03:45 04:00 04:15 Temperature 98.8 F Pulse Rate 66 67 66 Respiratory 13 11 L 13 Rate Blood Pressure 106/39 97/43 81/44 O2 Sat by Pulse 100 100 100 Oximetry 04/17/19 04/17/19 04/17/19 04:30 04:45 05:00 Temperature Pulse Rate 64 66 67 Respiratory 13 13 14 Rate Blood Pressure 81/44 71/39 71/39 O2 Sat by Pulse 100 100 100 Oximetry 04/17/19 04/17/19 04/17/19 05:16 05:30 05:46 Temperature Pulse Rate 72 72 66 Respiratory 11 L 18 16 Rate Blood Pressure 112/37 112/37 109/33 O2 Sat by Pulse 100 100 100 Oximetry 04/17/19 04/17/19 04/17/19 06:00 06:16 06:30 Temperature Pulse Rate 70 66 73 Respiratory 13 11 L 13 Rate Blood Pressure 112/37 87/62 100/37 O2 Sat by Pulse 100 100 100 Oximetry 04/17/19 04/17/19 04/17/19 06:46 07:00 07:09 Temperature Pulse Rate 69 71 Respiratory 13 12 Rate Blood Pressure 95/34 105/47 O2 Sat by Pulse 100 100 100 Oximetry 04/17/19 04/17/19 04/17/19 07:16 07:30 07:46 Temperature 98.0 F Pulse Rate 66 72 67 Respiratory 14 13 9 L Rate Blood Pressure 105/47 97/40 95/56 O2 Sat by Pulse 88 83 L 100 Oximetry 04/17/19 04/17/19 04/17/19 08:00 08:16 08:30 Temperature 98 F Pulse Rate 69 67 68 Respiratory 11 L 14 13 Rate Blood Pressure 102/49 102/49 92/23 O2 Sat by Pulse 100 88 91 Oximetry 04/17/19 04/17/19 04/17/19 08:46 09:00 09:16 Temperature Pulse Rate 70 69 69 Respiratory 16 18 16 Rate Blood Pressure 102/24 99/27 97/61 O2 Sat by Pulse 100 100 Oximetry 04/17/19 04/17/19 04/17/19 09:30 09:45 10:00 Temperature Pulse Rate 76 69 68 Respiratory 14 13 16 Rate Blood Pressure 104/48 102/42 102/42 O2 Sat by Pulse 99 100 Oximetry 04/17/19 04/17/19 04/17/19 10:16 10:30 10:46 Temperature Pulse Rate 69 69 68 Respiratory 14 16 14 Rate Blood Pressure 110/15 106/49 108/37 O2 Sat by Pulse 100 100 100 Oximetry 04/17/19 04/17/19 04/17/19 11:00 11:15 11:30 Temperature Pulse Rate 66 65 69 Respiratory 14 15 15 Rate Blood Pressure 112/31 110/23 91/28 O2 Sat by Pulse 100 99 90 Oximetry 04/17/19 04/17/19 04/17/19 11:46 12:00 12:16 Temperature 98.9 F Pulse Rate 64 73 75 Respiratory 12 14 15 Rate Blood Pressure 110/23 114/42 132/117 O2 Sat by Pulse 100 100 100 Oximetry 04/17/19 04/17/19 04/17/19 12:30 12:45 13:00 Temperature Pulse Rate 73 67 69 Respiratory 10 L 28 H 18 Rate Blood Pressure 134/29 110/46 97/50 O2 Sat by Pulse 99 100 100 Oximetry 04/17/19 04/17/19 04/17/19 13:16 13:30 13:45 Temperature Pulse Rate 66 68 69 Respiratory 17 18 16 Rate Blood Pressure 106/48 97/36 99/23 O2 Sat by Pulse 100 93 88 Oximetry 04/17/19 04/17/19 04/17/19 14:00 14:15 14:30 Temperature Pulse Rate 68 66 66 Respiratory 16 16 25 H Rate Blood Pressure 99/23 96/57 98/39 O2 Sat by Pulse 100 100 100 Oximetry 04/17/19 14:46 Temperature Pulse Rate 67 Respiratory 26 H Rate Blood Pressure 97/45 O2 Sat by Pulse 100 Oximetry Constitutional: appears uncomfortable, other (on 100% NRBM) ENT: oropharynx dry Neck: supple, no lymphadenopathy, JVD Effort: mildly labored Ascultation: Bilateral: diminished breath sounds, rales Cardiovascular: other (Tachycardia) Gastrointestinal: normoactive bowel sounds, soft, non-tender Extremities: no cyanosis, no edema Neurologic: non-focal exam, other (difficult to arouse) Psychiatric: other (unable to assess due to mental status) CBC and BMP: 04/16/19 05:36 04/17/19 04:52 ABG, PT/INR, D-dimer: ABG ABG pH 7.319 pH Units (7.350-7.450) L 04/17/19 05:07 ABG pCO2 56.0 mm Hg 04/17/19 05:07 ABG pO2 137.3 mm Hg (80.0-90.0) H 04/17/19 05:07 ABG O2 Saturation 98.5 % (95.0-99.0) 04/17/19 05:07 Abnormal lab findings: Abnormal Labs 04/14/19 04/14/19 04/14/19 12:07 12:07 21:14 WBC 11.4 H RBC 5.08 H MCV 78 L MCH 24 L RDW 25.1 H Plt Count Lymph % (Auto) [place] % (Auto) Lymph # [place] # Seg Neutrophils % Seg Neuts % (Manual) 80.0 H Lymphocytes % (Manual) 9.0 L Monocytes % (Manual) 11.0 H Seg Neutrophils # Man 9.1 H Lymphocytes # (Manual) 1.0 L Monocytes # (Manual) 1.3 H ABG pH ABG pO2 ABG HCO3 ABG Hemoglobin Sodium 135 L Potassium 8.0 H* Chloride 86.4 L Carbon Dioxide 12 L BUN 109 H Creatinine 10.8 H Glucose POC Glucose 121 H Calcium Total Bilirubin 2.10 H Alkaline Phosphatase 130 H Total Protein 9.0 H Albumin Lipase 12 L 04/15/19 04/15/19 04/15/19 08:14 10:06 11:40 WBC RBC MCV MCH RDW Plt Count Lymph % (Auto) [place] % (Auto) Lymph # [place] # Seg Neutrophils % Seg Neuts % (Manual) Lymphocytes % (Manual) Monocytes % (Manual) Seg Neutrophils # Man Lymphocytes # (Manual) Monocytes # (Manual) ABG pH ABG pO2 ABG HCO3 ABG Hemoglobin Sodium 135 L Potassium 5.2 H D Chloride 95.7 L Carbon Dioxide 18 L BUN 71 H Creatinine 8.2 H Glucose 107 H POC Glucose 124 H 114 H Calcium 8.0 L D Total Bilirubin Alkaline Phosphatase Total Protein Albumin Lipase 04/15/19 04/15/19 04/16/19 15:45 21:34 05:36 WBC RBC MCV 78 L MCH 24 L RDW 24.8 H Plt Count 103 L Lymph % (Auto) 9.5 L [place] % (Auto) 13.4 H Lymph # 0.8 L [place] # 1.1 H Seg Neutrophils % 75.8 H Seg Neuts % (Manual) Lymphocytes % (Manual) Monocytes % (Manual) Seg Neutrophils # Man Lymphocytes # (Manual) Monocytes # (Manual) ABG pH ABG pO2 ABG HCO3 ABG Hemoglobin Sodium Potassium Chloride Carbon Dioxide BUN Creatinine Glucose POC Glucose 145 H 120 H Calcium Total Bilirubin Alkaline Phosphatase Total Protein Albumin Lipase 04/16/19 04/16/19 04/16/19 05:36 11:12 16:42 WBC RBC MCV MCH RDW Plt Count Lymph % (Auto) [place] % (Auto) Lymph # [place] # Seg Neutrophils % Seg Neuts % (Manual) Lymphocytes % (Manual) Monocytes % (Manual) Seg Neutrophils # Man Lymphocytes # (Manual) Monocytes # (Manual) ABG pH ABG pO2 ABG HCO3 ABG Hemoglobin Sodium Potassium 6.9 H* D Chloride 92.5 L Carbon Dioxide 20 L BUN 79 H Creatinine 9.0 H Glucose POC Glucose 177 H 168 H Calcium 8.2 L Total Bilirubin Alkaline Phosphatase Total Protein Albumin 3.8 L Lipase 04/16/19 04/17/19 04/17/19 23:04 04:52 05:07 WBC RBC MCV MCH RDW Plt Count Lymph % (Auto) [place] % (Auto) Lymph # [place] # Seg Neutrophils % Seg Neuts % (Manual) Lymphocytes % (Manual) Monocytes % (Manual) Seg Neutrophils # Man Lymphocytes # (Manual) Monocytes # (Manual) ABG pH 7.319 L ABG pO2 137.3 H ABG HCO3 28.1 H ABG Hemoglobin 10.0 L Sodium Potassium Chloride 96.1 L Carbon Dioxide BUN 32 H Creatinine 5.7 H Glucose 101 H POC Glucose 128 H Calcium 8.0 L Total Bilirubin Alkaline Phosphatase Total Protein Albumin Lipase
[2019-04-17] MEDS: PRAVASTATIN 80 MG TAB PO SCH (21:20)
[2019-04-18 08:46] LABS: Hematocrit 33.2 % (30.3-42.9); Hemoglobin 10.6 gm/dl (10.1-14.3); Mean Corpuscular HGB Conc 32 % (30-34); Mean Corpuscular Volume 77 fl (79-97); Platelet Count 93 K/mm3 (140-440); Red Blood Count 4.29 M/mm3 (3.65-5.03); Red Cell Distribution Width 24.9 % (13.2-15.2)
[2019-04-18 08:50] LABS: INR 1.24 (0.87-1.13)
--- NOTE | 2019-04-18 09:06 | Progress Note ---
Subjective Principal diagnosis: Hyperkalemia, volume overload, end-stage renal disease Interval history: Patient was seen today for follow-up of multiple renal related issues, in the critical care setting Her family is at the bedside Blood pressure is low normal Admitted with severe hyperkalemia missing dialysis treatment No complaints of any chest pain pressure or shortness of breath Interdisciplinary notes that also reviewed Events of 24 hours vitals labs intake output medications were reviewed Past medical history: Reviewed Family history: Reviewed Social history: Reviewed Allergies: Reviewed Physical examination: Vitals: Reviewed HEENT: No pallor or icterus oral mucosa moist Neck: Supple no JVD no thyromegaly Chest: Bilateral clear to auscultation anteriorly Heart: Regular rate and rhythm S1-S2 heard no S3-S4 Abdomen: Soft nontender no voluntary guarding rigidity rebound Extremity: Dry skin less than 1+ peripheral edema Psychiatric: No evidence of agitation and aggression noted Dermatology: No petechial rashes Labs and x-rays: Reviewed from today Assessment and plan End-stage renal disease patient is currently on maintenance hemodialysis on Thursday and Thursday schedule will likely require renal replacement therapy tomorrow morning Significant improvement in BUN/creatinine from 109 and 10.82 32 and 5.7, monitor and follow Hyponatremia: Needs ongoing monitoring and follow-up Hyperkalemia: Needs close monitoring and follow-up, admitted with a potassium of 8.0 Continue to observe the patient without lisinopril for now, likely may have been noncompliant to monitor and follow Metabolic acidosis: Continue to monitor and follow bone mineral disorder and secondary hyperparathyroidism check phosphorus and PTH level periodically Nutrition: Patient needs to be in high protein diet preferably 1.5 g/kg body weight Multiple comorbidities including obesity hypoventilation, CVA, cardiomyopathy, congestive heart failure, ICD placement Overall prognosis appears to be guarded to poor due to, dialysis status and multiple comorbidities Noted to be markedly noncompliant missing 3 dialysis treatments high mortality risk patient has been educated She is going to [facility] Critical care time spent in ICU setting 33 minutes at the bedside Patient was adequately counseled and educated regarding all the renal related issues Laboratory studies, have been explained to the patient, as well as her family member at the bedside All questions were answered and simple Faroese We'll continue to follow and make recommendation for renal standpoint Objective - Vital Signs Vital signs: Vital Signs - 12hr 04/17/19 04/17/1920 21:16 21:30 21:45 Temperature Pulse Rate 71 71 73 Respiratory 19 19 15 Rate Blood Pressure 104/44 104/44 110/74 O2 Sat by Pulse 100 100 99 Oximetry 04/17/19 04/17/19 04/17/19 22:00 22:15 22:30 Temperature Pulse Rate 72 77 77 Respiratory 17 22 17 Rate Blood Pressure 126/52 135/55 129/63 O2 Sat by Pulse 99 100 99 Oximetry 04/17/19 04/17/19 04/17/19 22:46 23:00 23:08 Temperature Pulse Rate 75 75 77 Respiratory 16 19 17 Rate Blood Pressure 130/71 132/48 132/48 O2 Sat by Pulse 100 Oximetry 04/17/19 04/17/19 04/17/19 23:16 23:30 23:45 Temperature Pulse Rate 76 74 77 Respiratory 14 16 16 Rate Blood Pressure 125/75 125/75 121/57 O2 Sat by Pulse 100 100 Oximetry 04/17/19 04/18/19 04/18/19 23:50 00:00 00:15 Temperature 98.9 F Pulse Rate 78 73 Respiratory 13 14 Rate Blood Pressure 121/57 108/68 O2 Sat by Pulse 91 88 Oximetry 04/18/19 04/18/19 04/18/19 00:30 00:45 01:00 Temperature Pulse Rate 76 81 73 Respiratory 18 11 L 12 Rate Blood Pressure 121/67 130/94 124/52 O2 Sat by Pulse 99 100 100 Oximetry 04/18/19 04/18/19 04/18/19 01:15 01:30 01:45 Temperature Pulse Rate 76 75 76 Respiratory 22 12 14 Rate Blood Pressure 126/60 125/47 130/37 O2 Sat by Pulse 100 100 90 Oximetry 04/18/19 04/18/19 04/18/19 02:00 02:16 02:30 Temperature Pulse Rate 76 75 73 Respiratory 12 13 16 Rate Blood Pressure 145/123 123/53 123/45 O2 Sat by Pulse 87 100 100 Oximetry 04/18/19 04/18/19 04/18/19 02:45 03:00 03:16 Temperature Pulse Rate 70 72 71 Respiratory 15 15 10 L Rate Blood Pressure 117/55 116/60 124/74 O2 Sat by Pulse 100 100 100 Oximetry 04/18/19 04/18/19 04/18/19 03:30 03:46 03:50 Temperature 98.8 F Pulse Rate 72 72 Respiratory 12 10 L Rate Blood Pressure 115/46 93/16 O2 Sat by Pulse 97 92 Oximetry 04/18/19 04/18/19 04/18/19 04:00 04:16 04:30 Temperature Pulse Rate 66 69 68 Respiratory 11 L 14 10 L Rate Blood Pressure 111/38 117/23 93/30 O2 Sat by Pulse 85 100 100 Oximetry 04/18/19 04/18/19 04/18/19 04:45 05:00 05:16 Temperature Pulse Rate 70 70 71 Respiratory 11 L 11 L 13 Rate Blood Pressure 87/36 O2 Sat by Pulse 100 100 99 Oximetry 04/18/19 04/18/19 04/18/19 05:30 05:45 06:00 Temperature Pulse Rate 67 65 70 Respiratory 9 L 9 L 12 Rate Blood Pressure 129/60 143/50 117/48 O2 Sat by Pulse 100 100 95 Oximetry - Lab 04/18/19 08:28 04/18/19 18:23 Most recent lab results ABG pH 7.319 pH Units (7.350-7.450) L 04/17/19 05:07 ABG pCO2 56.0 mm Hg 04/17/19 05:07 ABG pO2 137.3 mm Hg (80.0-90.0) H 04/17/19 05:07 ABG HCO3 28.1 mmol/L (20.0-26.0) H 04/17/19 05:07 ABG O2 Saturation 98.5 % (95.0-99.0) 04/17/19 05:07 Calcium 8.0 mg/dL (8.4-10.2) L 04/17/19 04:52 Medications & Allergies - Medications Allergies/Adverse Reactions: Allergies No Known Allergies Allergy (Verified 06/02/14 09:28) Home Medications: Home Medications Medication Instructions Recorded Confirmed Last Taken Type Aspirin 325 mg PO DAILY 06/02/14 04/16/19 01/08/16 History 325 MG Lovastatin [Altoprev] 40 mg PO DAILY 06/02/14 04/16/19 01/08/16 History 40 MG carvediloL [Coreg] 25 mg PO BID 06/02/14 04/16/19 01/08/16 History 25 MG ISOSORBIDE MONOnitrate [Imdur ER] 60 mg PO QDAY #30 tablet 01/11/16 04/16/19 Unknown Rx NIFEdipine XL [Procardia Xl] 60 mg PO QDAY #30 tablet 02/08/16 04/16/19 Unknown Rx lisinopriL [Zestril TAB] 40 mg PO QDAY #30 tablet 02/08/16 04/16/19 Unknown Rx Active Medications: Generic Name Dose Route Start Last Admin Trade Name Freq PRN Reason Stop Dose Admin Acetaminophen 650 mg 04/14/19 13:14 04/16/19 13:50 Tylenol PO 650 mg Q4H PRN Administration Pain MILD(1-3)/Fever >100.5/GROVE Aspirin 325 mg 04/15/19 10:00 04/17/19 10:00 Aspirin PO 325 mg DAILY ABDIEL Administration Dextrose 0 ml 04/16/19 11:00 D50w (25gm) Syringe IV ONCE ABDIEL Sodium Chloride 100 mls @ 999 mls/hr 04/14/19 17:06 Nacl 0.9% IV NAOMI PRN Hypotension Vasopressin 20 unit/ Sodium 101 mls @ 9.09 mls/hr 04/16/19 10:00 Chloride IV TITR ABDIEL Protocol 0.03 UNITS/MIN Isosorbide Mononitrate 60 mg 04/15/19 10:00 04/17/19 10:00 Imdur PO Not Given QDAY ABDIEL Ondansetron HCl 4 mg 04/14/19 13:14 Zofran IV Q8H PRN Nausea And Vomiting Pravastatin Sodium 80 mg 04/14/19 22:00 04/17/19 21:20 Pravachol PO 80 mg QHS ABDIEL Administration Sodium Chloride 10 ml 04/14/19 22:00 04/17/19 21:20 Sodium Chloride Flush Syringe 10 Ml IV 10 ml BID ABDIEL Administration Sodium Chloride 10 ml 04/14/19 13:14 Sodium Chloride Flush Syringe 10 Ml IV PRN PRN LINE FLUSH
[2019-04-18 10:28] LABS: Basophils % (Manual) 0 % (0.0-1.8); Platelet Estimate Consistent w Auto; Total Cells Counted 100
[2019-04-18] MEDS: ASPIRIN 325 MG TAB PO SCH (10:56)
--- NOTE | 2019-04-18 11:15 | Progress Note ---
Assessment and Plan -Hypotension -Acute metabolic encephalopathy -Pulmonary edema- clinically -Severe hyperkalemia -Metabolic acidosis -ESRD -Azotemia, nausea and vomiting Recommendations -Admit ICU for emergent HD for severe hyperkalemia and metabolic acidosis, clinically appears to be in pulmonary edema -ABG, CXR -Medical management of hyperkalemia- administer kayexalate -Aspiration precautions -Hold all anti-hypertensives, will re-introduce when her hemodynamics are more stable -Supplemental oxygen keep O2 sats >90. wean as tolerated. -Aspiration precautions -Vasopressor support as indicated to keep MAP>65 -Anti-emetics and supportive care -Monitor in the ICU at risk of arrhythmias and PEA arrest from metabolic/electro lyte derangements CONDITION: CRITICAL PROGNOSIS: GUARDED CODE STATUS: FULL CODE The high probability of a clinically significant, sudden or life-threatening deterioration of the respiratory, cardiovascular, renal systems required my full and direct attention, intervention and personal management. The aggregate critical care time was [35] minutes without overlap. Time includes spent on; [x] Data Review and interpretation [x] Patient assessment and monitoring of vital signs [x] Documentation [x] Medication orders and management Subjective Date of service: 04/18/19 Principal diagnosis: Hyperkalemia, volume overload, end-stage renal disease Objective Vital Signs - 12hr 04/17/19 04/17/19 04/17/19 23:16 23:30 23:45 Temperature Pulse Rate 76 74 77 Respiratory 14 16 16 Rate Blood Pressure 125/75 125/75 121/57 O2 Sat by Pulse 100 100 Oximetry 04/17/19 04/18/19 04/18/19 23:50 00:00 00:15 Temperature 98.9 F Pulse Rate 78 73 Respiratory 13 14 Rate Blood Pressure 121/57 108/68 O2 Sat by Pulse 91 88 Oximetry 04/18/19 04/18/19 04/18/19 00:30 00:45 01:00 Temperature Pulse Rate 76 81 73 Respiratory 18 11 L 12 Rate Blood Pressure 121/67 130/94 124/52 O2 Sat by Pulse 99 100 100 Oximetry 04/18/19 04/18/19 04/18/19 01:15 01:30 01:45 Temperature Pulse Rate 76 75 76 Respiratory 22 12 14 Rate Blood Pressure 126/60 125/47 130/37 O2 Sat by Pulse 100 100 90 Oximetry 03/10/2904/18/19 04/18/19 02:00 02:16 02:30 Temperature Pulse Rate 76 75 73 Respiratory 12 13 16 Rate Blood Pressure 145/123 123/53 123/45 O2 Sat by Pulse 87 100 100 Oximetry 04/18/19 04/18/19 04/18/19 02:45 03:00 03:16 Temperature Pulse Rate 70 72 71 Respiratory 15 15 10 L Rate Blood Pressure 117/55 116/60 124/74 O2 Sat by Pulse 100 100 100 Oximetry 04/18/19 04/18/19 04/18/19 03:30 03:46 03:50 Temperature 98.8 F Pulse Rate 72 72 Respiratory 12 10 L Rate Blood Pressure 115/46 93/16 O2 Sat by Pulse 97 92 Oximetry 04/18/19 04/18/19 04/18/19 04:00 04:16 04:30 Temperature Pulse Rate 66 69 68 Respiratory 11 L 14 10 L Rate Blood Pressure 111/38 117/23 93/30 O2 Sat by Pulse 85 100 100 Oximetry 04/18/19 04/18/19 04/18/19 04:45 05:00 05:16 Temperature Pulse Rate 70 70 71 Respiratory 11 L 11 L 13 Rate Blood Pressure 87/36 O2 Sat by Pulse 100 100 99 Oximetry 04/18/19 04/18/19 04/18/19 05:30 05:45 06:00 Temperature Pulse Rate 67 65 70 Respiratory 9 L 9 L 12 Rate Blood Pressure 129/60 143/50 117/48 O2 Sat by Pulse 100 100 95 Oximetry 04/18/19 04/18/19 04/18/19 06:16 06:30 06:46 Temperature Pulse Rate 73 74 65 Respiratory 14 17 10 L Rate Blood Pressure 49/33 137/58 137/58 O2 Sat by Pulse 86 92 93 Oximetry 04/18/19 04/18/19 04/18/19 07:00 07:16 07:30 Temperature Pulse Rate 64 68 67 Respiratory 10 L 10 L 21 Rate Blood Pressure 126/51 126/51 140/65 O2 Sat by Pulse 94 86 84 Oximetry 04/18/19 04/18/19 04/18/19 07:45 08:00 08:16 Temperature 98.9 F Pulse Rate 73 70 67 Respiratory 18 14 12 Rate Blood Pressure 113/51 113/57 113/57 O2 Sat by Pulse 77 L 96 93 Oximetry 04/18/19 04/18/19 04/18/19 08:30 08:46 09:00 Temperature Pulse Rate 70 67 67 Respiratory 14 11 L 11 L Rate Blood Pressure 144/51 115/37 99/27 O2 Sat by Pulse 87 99 99 Oximetry 04/18/19 04/18/19 09:15 10:56 Temperature Pulse Rate 66 70 Respiratory 10 L Rate Blood Pressure 109/44 108/63 O2 Sat by Pulse 100 Oximetry Constitutional: appears uncomfortable, other (on 100% NRBM) ENT: oropharynx dry Neck: supple, no lymphadenopathy, JVD Effort: mildly labored Ascultation: Bilateral: diminished breath sounds, rales Cardiovascular: other (Tachycardia) Gastrointestinal: normoactive bowel sounds, soft, non-tender Extremities: no cyanosis, no edema Neurologic: non-focal exam, other (difficult to arouse) Psychiatric: other (unable to assess due to mental status) CBC and BMP: 04/18/19 08:28 04/17/19 04:52 ABG, PT/INR, D-dimer: ABG ABG pH 7.319 pH Units (7.350-7.450) L 04/17/19 05:07 ABG pCO2 56.0 mm Hg 04/17/19 05:07 ABG pO2 137.3 mm Hg (80.0-90.0) H 04/17/19 05:07 ABG O2 Saturation 98.5 % (95.0-99.0) 04/17/19 05:07 PT/INR, D-dimer PT 15.8 Sec. (12.2-14.9) H 04/18/19 08:28 INR 1.24 (0.87-1.13) H 04/18/19 08:28 Abnormal lab findings: Abnormal Labs 04/14/19 04/14/19 04/14/19 12:07 12:07 21:14 WBC 11.4 H RBC 5.08 H MCV 78 L MCH 24 L RDW 25.1 H Plt Count Lymph % (Auto) Coal % (Auto) Lymph # Coal # Seg Neutrophils % Seg Neuts % (Manual) 80.0 H Lymphocytes % (Manual) 9.0 L Monocytes % (Manual) 11.0 H Seg Neutrophils # Man 9.1 H Lymphocytes # (Manual) 1.0 L Monocytes # (Manual) 1.3 H PT INR ABG pH ABG pO2 ABG HCO3 ABG Hemoglobin Sodium 135 L Potassium 8.0 H* Chloride 86.4 L Carbon Dioxide 12 L BUN 109 H Creatinine 10.8 H Glucose POC Glucose 121 H Calcium Total Bilirubin 2.10 H Alkaline Phosphatase 130 H Total Protein 9.0 H Albumin Lipase 12 L 04/15/19 04/15/19 04/15/19 08:14 10:06 11:40 WBC RBC MCV MCH RDW Plt Count Lymph % (Auto) Coal % (Auto) Lymph # Coal # Seg Neutrophils % Seg Neuts % (Manual) Lymphocytes % (Manual) Monocytes % (Manual) Seg Neutrophils # Man Lymphocytes # (Manual) Monocytes # (Manual) PT INR ABG pH ABG pO2 ABG HCO3 ABG Hemoglobin Sodium 135 L Potassium 5.2 H D Chloride 95.7 L Carbon Dioxide 18 L BUN 71 H Creatinine 8.2 H Glucose 107 H POC Glucose 124 H 114 H Calcium 8.0 L D Total Bilirubin Alkaline Phosphatase Total Protein Albumin Lipase 04/15/19 04/15/19 04/16/19 15:45 21:34 05:36 WBC RBC MCV 78 L MCH 24 L RDW 24.8 H Plt Count 103 L Lymph % (Auto) 9.5 L Coal % (Auto) 13.4 H Lymph # 0.8 L Coal # 1.1 H Seg Neutrophils % 75.8 H Seg Neuts % (Manual) Lymphocytes % (Manual) Monocytes % (Manual) Seg Neutrophils # Man Lymphocytes # (Manual) Monocytes # (Manual) PT INR ABG pH ABG pO2 ABG HCO3 ABG Hemoglobin Sodium Potassium Chloride Carbon Dioxide BUN Creatinine Glucose POC Glucose 145 H 120 H Calcium Total Bilirubin Alkaline Phosphatase Total Protein Albumin Lipase 04/16/19 04/16/19 04/16/19 05:36 11:12 16:42 WBC RBC MCV MCH RDW Plt Count Lymph % (Auto) Coal % (Auto) Lymph # Coal # Seg Neutrophils % Seg Neuts % (Manual) Lymphocytes % (Manual) Monocytes % (Manual) Seg Neutrophils # Man Lymphocytes # (Manual) Monocytes # (Manual) PT INR ABG pH ABG pO2 ABG HCO3 ABG Hemoglobin Sodium Potassium 6.9 H* D Chloride 92.5 L Carbon Dioxide 20 L BUN 79 H Creatinine 9.0 H Glucose POC Glucose 177 H 168 H Calcium 8.2 L Total Bilirubin Alkaline Phosphatase Total Protein Albumin 3.8 L Lipase 04/16/19 04/17/19 04/17/19 23:04 04:52 05:07 WBC RBC MCV MCH RDW Plt Count Lymph % (Auto) Coal % (Auto) Lymph # Coal # Seg Neutrophils % Seg Neuts % (Manual) Lymphocytes % (Manual) Monocytes % (Manual) Seg Neutrophils # Man Lymphocytes # (Manual) Monocytes # (Manual) PT INR ABG pH 7.319 L ABG pO2 137.3 H ABG HCO3 28.1 H ABG Hemoglobin 10.0 L Sodium Potassium Chloride 96.1 L Carbon Dioxide BUN 32 H Creatinine 5.7 H Glucose 101 H POC Glucose 128 H Calcium 8.0 L Total Bilirubin Alkaline Phosphatase Total Protein Albumin Lipase 04/17/19 04/17/19 04/18/19 18:23 22:54 08:28 WBC RBC MCV 77 L MCH 25 L RDW 24.9 H Plt Count 93 L Lymph % (Auto) Coal % (Auto) Lymph # Coal # Seg Neutrophils % Seg Neuts % (Manual) 72.0 H Lymphocytes % (Manual) 13.0 L Monocytes % (Manual) 14.0 H Seg Neutrophils # Man Lymphocytes # (Manual) Monocytes # (Manual) 1.3 H PT INR ABG pH ABG pO2 ABG HCO3 ABG Hemoglobin Sodium Potassium Chloride Carbon Dioxide BUN Creatinine Glucose POC Glucose 318 H 117 H Calcium Total Bilirubin Alkaline Phosphatase Total Protein Albumin Lipase 04/18/19 08:28 WBC RBC MCV MCH RDW Plt Count Lymph % (Auto) Coal % (Auto) Lymph # Coal # Seg Neutrophils % Seg Neuts % (Manual) Lymphocytes % (Manual) Monocytes % (Manual) Seg Neutrophils # Man Lymphocytes # (Manual) Monocytes # (Manual) PT 15.8 H INR 1.24 H ABG pH ABG pO2 ABG HCO3 ABG Hemoglobin Sodium Potassium Chloride Carbon Dioxide BUN Creatinine Glucose POC Glucose Calcium Total Bilirubin Alkaline Phosphatase Total Protein Albumin Lipase
[2019-04-18 13:15] LABS: ABG PCO2 47.3 mm Hg; ABG PH 7.359 pH Units (7.350-7.450)
[2019-04-18 13:16] LABS: ABG Base Excess 0.3 mmol/L (-2.0-3.0); ABG Methemoglobin 0.5 % (0.0-1.5); ABG Oxygen Saturation 98.7 % (95.0-99.0); ABG PO2 143.7 mm Hg (80.0-90.0)
--- NOTE | 2019-04-19 06:45 | Progress Note ---
Assessment and Plan (1)Hypotension Vasopressor discontinued Transfer to [facility] [place] (2) End stage renal disease Current Visit: Yes Status: Acute Hemodialysis once blood pressure stable (2) Acidosis Current Visit: Yes Status: Acute Improved (3) Hypertension Current Visit: Yes Status: Acute Qualifiers: Hypertension type: essential hypertension Qualified Code(s): I10 - Essential (primary) hypertension Plan to address problem: Monitor blood pressure every shift, supportive care. Patient hypotensive now (4) Diabetes Current Visit: Yes Status: Acute Plan to address problem: Sliding scale insulin therapy, consistent carbohydrate diet, Accu-Chek, hypoglycemia protocol Coverage for now (5) Obesity hypoventilation syndrome Current Visit: Yes Status: Acute Plan to address problem: Supplemental oxygen nebulizer therapy, chest x-ray, pulse oximetry, noninvasive positive pressure ventilation as clinically indicated, balanced diet at discharge (6) Hyperkalemia Current Visit: Yes Status: Acute Plan to address problem: Calcium gluconate, Kayexalate, urgent dialysis, insulin, D50, repeat BMP in a.m. No EKG changes. Potassium level corrected (7) CHF (congestive heart failure) exacerbation Secondary to volume overload Current Visit: Yes Status: Acute Qualifiers: Heart failure type: diastolic Heart failure chronicity: chronic Qualified Code(s): I50.32 - Chronic diastolic (congestive) heart failure Plan to address problem: Currently compensated. Strict I's/O, daily weight, monitor urine output every shift, blood pressure control, supplemental oxygen, (8) DVT prophylaxis Current Visit: Yes Status: Acute Plan to address problem: SCD to bilateral lower extremities while in bed, patient is ambulatory (9) Advance care planning Current Visit: Yes Status: Acute Plan to address problem: Patient is full code, disease education conducted, patient counseled regarding noncompliance with dialysis. Patient and daughter acknowledged understanding and agreement with care plan. +30 minutes. Subjective Date of service: 04/18/19 Principal diagnosis: Hyperkalemia, volume overload, end-stage renal disease Interval history: 63-year-old female with history of hypertension, end-stage renal disease, cardiomyopathy and cerebrovascular accident, hypoventilation syndrome secondary to obesity presents with 3 days of vomiting and nausea and loose stools. This prevented her from going to the dialysis. Patient had missed dialysis. Patient in respiratory distress. EMS was called. Patient was in fluid overload hence admission. Interval improvement. Objective - Constitutional Vitals: Vital Signs - 12hr 04/18/19 04/18/19 04/18/19 18:46 19:00 19:15 Temperature Pulse Rate 81 75 76 Pulse Rate [ From Monitor] Respiratory 20 14 15 Rate Blood Pressure 120/57 120/57 72/51 O2 Sat by Pulse 77 L 68 L 70 L Oximetry 04/18/19 04/18/19 04/18/19 19:30 19:46 19:56 Temperature 98.4 F Pulse Rate 69 66 Pulse Rate [ From Monitor] Respiratory 13 10 L Rate Blood Pressure 120/38 120/38 O2 Sat by Pulse 62 L 62 L Oximetry 04/18/19 04/18/19 04/18/19 20:00 20:16 20:30 Temperature Pulse Rate 71 78 75 Pulse Rate [ 86 From Monitor] Respiratory 10 L 18 13 Rate Blood Pressure 123/54 123/54 123/54 O2 Sat by Pulse 71 L 58 L 81 L Oximetry 04/18/19 04/18/19 04/18/19 20:46 21:00 21:16 Temperature Pulse Rate 71 77 71 Pulse Rate [ From Monitor] Respiratory 20 18 13 Rate Blood Pressure 123/54 123/54 107/66 O2 Sat by Pulse 85 96 100 Oximetry 04/18/19 04/18/19 04/18/19 21:30 21:46 22:00 Temperature Pulse Rate 71 75 71 Pulse Rate [ From Monitor] Respiratory 22 15 13 Rate Blood Pressure 107/66 107/66 95/44 O2 Sat by Pulse 99 95 94 Oximetry 04/18/19 04/18/19 04/18/19 22:16 22:30 22:46 Temperature Pulse Rate 66 67 72 Pulse Rate [ From Monitor] Respiratory 22 16 20 Rate Blood Pressure 95/44 95/44 95/44 O2 Sat by Pulse 90 93 89 Oximetry 04/18/19 04/18/19 04/18/19 23:00 23:16 23:30 Temperature Pulse Rate 69 70 73 Pulse Rate [ From Monitor] Respiratory 10 L 13 11 L Rate Blood Pressure 111/59 111/59 111/59 O2 Sat by Pulse 83 L 81 L 92 Oximetry 04/18/19 04/18/19 04/19/19 23:39 23:46 00:00 Temperature 99.4 F Pulse Rate 71 70 Pulse Rate [ 69 From Monitor] Respiratory 22 16 Rate Blood Pressure 111/59 111/59 O2 Sat by Pulse 84 86 Oximetry 04/19/19 04/19/19 04/19/19 00:16 00:30 00:46 Temperature Pulse Rate 69 69 75 Pulse Rate [ From Monitor] Respiratory 13 15 12 Rate Blood Pressure 129/40 129/40 129/40 O2 Sat by Pulse 87 85 84 Oximetry 04/19/19 04/19/19 04/19/19 01:00 01:16 01:30 Temperature Pulse Rate 69 71 62 Pulse Rate [ From Monitor] Respiratory 12 11 L 9 L Rate Blood Pressure 140/32 140/32 140/32 O2 Sat by Pulse 100 100 100 Oximetry 04/19/19 04/19/19 04/19/19 01:46 02:00 02:16 Temperature Pulse Rate 70 70 70 Pulse Rate [ From Monitor] Respiratory 12 13 9 L Rate Blood Pressure 140/32 130/40 130/40 O2 Sat by Pulse 100 100 100 Oximetry 04/19/19 04/19/19 04/19/19 02:30 02:46 03:00 Temperature Pulse Rate 68 72 71 Pulse Rate [ From Monitor] Respiratory 8 L 13 11 L Rate Blood Pressure 130/40 130/40 130/40 O2 Sat by Pulse 100 100 100 Oximetry 04/19/19 04/19/19 04/19/19 03:16 03:30 03:41 Temperature 97.4 F L Pulse Rate 67 71 Pulse Rate [ From Monitor] Respiratory 10 L 11 L Rate Blood Pressure 123/27 123/27 O2 Sat by Pulse 100 100 Oximetry 04/19/19 04/19/19 04/19/19 03:46 04:00 04:16 Temperature Pulse Rate 66 72 67 Pulse Rate [ 72 From Monitor] Respiratory 13 12 10 L Rate Blood Pressure 123/27 115/63 115/63 O2 Sat by Pulse 100 100 100 Oximetry 04/19/19 04/19/19 04/19/19 04:30 04:46 05:00 Temperature Pulse Rate 70 67 70 Pulse Rate [ From Monitor] Respiratory 9 L 8 L 9 L Rate Blood Pressure 115/63 115/63 116/36 O2 Sat by Pulse 100 100 100 Oximetry 04/19/19 04/19/19 04/19/19 05:16 05:30 05:46 Temperature Pulse Rate 63 69 71 Pulse Rate [ From Monitor] Respiratory 9 L 9 L 9 L Rate Blood Pressure 116/36 116/36 116/36 O2 Sat by Pulse 100 100 100 Oximetry 04/19/19 04/19/19 04/19/19 06:00 06:16 06:30 Temperature Pulse Rate 69 70 67 Pulse Rate [ From Monitor] Respiratory 9 L 9 L 9 L Rate Blood Pressure 112/42 112/42 112/42 O2 Sat by Pulse 100 100 100 Oximetry General appearance: Present: no acute distress, well-nourished - EENT Eyes: PERRL, EOM intact ENT: hearing intact, clear oral mucosa Ears: bilateral: normal - Neck Neck: supple, normal ROM - Respiratory Respiratory effort: normal Respiratory: bilateral: CTA - Breasts Breasts: normal - Cardiovascular Heart rate: 78 Rhythm: regular Heart Sounds: Present: S1 & S2. Absent: gallop, rub Extremities: pulses intact, No edema, normal color, Full ROM - Gastrointestinal General gastrointestinal: Present: soft, non-tender, non-distended, normal bowel sounds Rectal Exam: deferred - Genitourinary Female genitourinary: normal - Integumentary Integumentary: clear, warm, dry - Musculoskeletal Musculoskeletal: 1, strength equal bilaterally - Neurologic Neurologic: moves all extremities - Psychiatric Psychiatric: memory intact, appropriate mood/affect, intact judgment & insight - Labs CBC & Chem 7: 04/18/19 08:28 04/18/19 18:23 Labs: Abnormal lab results 04/18/19 04/18/19 04/18/19 Range/Units 08:28 08:28 11:43 MCV 77 L (79-97) fl MCH 25 L (28-32) pg RDW 24.9 H (13.2-15.2) % Plt Count 93 L (140-440) K/mm3 Seg Neuts % (Manual) 72.0 H (40.0-70.0) % Lymphocytes % (Manual) 13.0 L (13.4-35.0) % Monocytes % (Manual) 14.0 H (0.0-7.3) % Monocytes # (Manual) 1.3 H (0.0-0.8) K/mm3 PT 15.8 H (12.2-14.9) Sec. INR 1.24 H (0.87-1.13) ABG pO2 (80.0-90.0) mm Hg ABG Hemoglobin (12.0-16.0) gm/dl Glucose (65-100) mg/dL POC Glucose 202 H (70-105) 04/18/19 04/18/19 04/18/19 Range/Units 13:06 17:29 18:23 MCV (79-97) fl MCH (28-32) pg RDW (13.2-15.2) % Plt Count (140-440) K/mm3 Seg Neuts % (Manual) (40.0-70.0) % Lymphocytes % (Manual) (13.4-35.0) % Monocytes % (Manual) (0.0-7.3) % Monocytes # (Manual) (0.0-0.8) K/mm3 PT (12.2-14.9) Sec. INR (0.87-1.13) ABG pO2 143.7 H (80.0-90.0) mm Hg ABG Hemoglobin 9.4 L (12.0-16.0) gm/dl Glucose 167 H (65-100) mg/dL POC Glucose > 500 H (70-105) 04/18/19 Range/Units 22:20 MCV (79-97) fl MCH (28-32) pg RDW (13.2-15.2) % Plt Count (140-440) K/mm3 Seg Neuts % (Manual) (40.0-70.0) % Lymphocytes % (Manual) (13.4-35.0) % Monocytes % (Manual) (0.0-7.3) % Monocytes # (Manual) (0.0-0.8) K/mm3 PT (12.2-14.9) Sec. INR (0.87-1.13) ABG pO2 (80.0-90.0) mm Hg ABG Hemoglobin (12.0-16.0) gm/dl Glucose (65-100) mg/dL POC Glucose 209 H (70-105)
[2019-04-19] MEDS ORDERED: SODIUM CHLORIDE 0.9% 100 ML IV PRN (09:19)
--- NOTE | 2019-04-19 09:19 | Progress Note ---
Assessment and Plan Assessment and plan: Hypotension Off Vasopressor , blood pressures in the lower range Closely monitor, hold antihypertensives --End stage renal disease on HD Current Visit: Yes Status: Acute Hemodialysis per schedule Nephrology following --Metabolic acidosis/due to ESRD Current Visit: Yes Status: Acute HD per schedule, closely monitor --History of hypertension Current Visit: Yes Status: Acute Blood pressures in the lower range closely monitor Antihypertensives as needed --Type II diabetes Current Visit: Yes Status: Acute Accu-Chek ,sliding scale insulin therapy, ADA diet, Long-acting insulin, check A1c --Obesity ; Current Visit: Yes Status: Acute Supplemental oxygen nebulizer therapy, Pulmonary following --Hyperkalemia Current Visit: Yes Status: Acute Calcium gluconate, Kayexalate, dialysis per schedule --Acute on chronic diastolic CHF (congestive heart failure) With volume overload Current Visit: Yes Status: Acute HD per schedule Input output monitoring. --AICD in place; Supportive care -- DVT prophylaxis Current Visit: Yes Status: Acute SCD , heparin renal dose --Advance care planning Current Visit: Yes Status: Acute Patient is full code, Plan of care reviewed with the patient, family And the nurse Monitor closely and adjust management as needed DC planning; possible home with home oxygen if needed with home health Versus LTAC placement Critical care time 32 minutes History Interval history: Initially discharge was planned for the patient However nurse reports that patient's room air O2 sats are very low Currently patient is using 4 L of nasal cannula oxygen Discharge is held, evaluating for home oxygen Patient received hemodialysis today Feels slightly better no new complaints Vital signs reviewed Patient's daughter at the bedside Hospitalist Physical - Constitutional Vitals: Temp Pulse Resp BP Pulse Ox 97.4 F L 67 9 L 112/42 100 04/19/19 03:41 04/19/19 06:30 04/19/19 06:30 04/19/19 06:30 04/19/19 06:30 General appearance: Present: no acute distress, well-nourished - EENT Eyes: Present: PERRL, EOM intact - Neck Neck: Present: supple, normal ROM - Respiratory Respiratory effort: normal Respiratory: bilateral: diminished, rales, negative: rhonchi, wheezing - Cardiovascular Rhythm: regular Heart Sounds: Present: S1 & S2 - Extremities Extremities: no ischemia, No edema - Abdominal General gastrointestinal: soft, non-tender, non-distended, normal bowel sounds - Integumentary Integumentary: Present: clear, warm - Psychiatric Psychiatric: appropriate mood/affect, cooperative - Neurologic Neurologic: CNII-XII intact, moves all extremities MAGNO score - Magno Score Age > 65: (0) No Aspirin use within the Past 7 Days: (1) Yes 3 or more CAD Risk Factors: (0) No 2 or more Angina events in past 24 hrs: (0) No Known CAD with more than 50% Stenosis: (0) No Elevated Cardiac Markers: (1) Yes ST Deviation Greater than 0.5mm: (0) No MAGNO Score: 2 Results - Labs CBC & Chem 7: 04/19/19 15:19 04/19/19 15:30 Labs: Laboratory Last Values WBC 9.3 K/mm3 (4.5-11.0) 04/18/19 08:28 RBC 4.29 M/mm3 (3.65-5.03) 04/18/19 08:28 Hgb 10.6 gm/dl (10.1-14.3) 04/18/19 08:28 Hct 33.2 % (30.3-42.9) 04/18/19 08:28 MCV 77 fl (79-97) L 04/18/19 08:28 MCH 25 pg (28-32) L 04/18/19 08:28 MCHC 32 % (30-34) 04/18/19 08:28 RDW 24.9 % (13.2-15.2) H 04/18/19 08:28 Plt Count 93 K/mm3 (140-440) L 04/18/19 08:28 Lymph % (Auto) Lead Ruby On Rails Developer 04/18/19 08:28 Harlan % (Auto) Lead [employer] On Rails Developer 04/18/19 08:28 Eos % (Auto) Lead [employer] On Rails Developer 04/18/19 08:28 Baso % (Auto) Lead [employer] Rails Developer 04/18/19 08:28 Lymph # Lead [employer] Rails Developer 04/18/19 08:28 Harlan # Lead [employer] Rails Developer 04/18/19 08:28 Eos # Lead Ruby On Rails Developer 04/18/19 08:28 Baso # Lead [employer] On Rails Developer 04/18/19 08:28 Add Manual Diff Complete 04/18/19 08:28 Total Counted 100 04/18/19 08:28 Seg Neutrophils % Lead [employer] Rails Developer 04/18/19 08:28 Seg Neuts % (Manual) 72.0 % (40.0-70.0) H 04/18/19 08:28 Band Neutrophils % 0 % 04/18/19 08:28 Lymphocytes % (Manual) 13.0 % (13.4-35.0) L 04/18/19 08:28 Reactive Lymphs % (Man) 0 % 04/18/19 08:28 Monocytes % (Manual) 14.0 % (0.0-7.3) H 04/18/19 08:28 Eosinophils % (Manual) 1.0 % (0.0-4.3) 04/18/19 08:28 Basophils % (Manual) 0 % (0.0-1.8) 04/18/19 08:28 Metamyelocytes % 0 % 04/18/19 08:28 Myelocytes % 0 % 04/18/19 08:28 Promyelocytes % 0 % 04/18/19 08:28 Blast Cells % 0 % 04/18/19 08:28 Nucleated RBC % Not Reportable 04/18/19 08:28 Seg Neutrophils # Lead [employer] Rails Developer 04/18/19 08:28 Seg Neutrophils # Man 6.7 K/mm3 (1.8-7.7) 04/18/19 08:28 Band Neutrophils # 0.0 K/mm3 04/18/19 08:28 Lymphocytes # (Manual) 1.2 K/mm3 (1.2-5.4) 04/18/19 08:28 Abs React Lymphs (Man) 0.0 K/mm3 04/18/19 08:28 Monocytes # (Manual) 1.3 K/mm3 (0.0-0.8) H 04/18/19 08:28 Eosinophils # (Manual) 0.1 K/mm3 (0.0-0.4) 04/18/19 08:28 Basophils # (Manual) 0.0 K/mm3 (0.0-0.1) 04/18/19 08:28 Metamyelocytes # 0.0 K/mm3 04/18/19 08:28 Myelocytes # 0.0 K/mm3 04/18/19 08:28 Promyelocytes # 0.0 K/mm3 04/18/19 08:28 Blast Cells # 0.0 K/mm3 04/18/19 08:28 WBC Morphology Not Reportable 04/18/19 08:28 Hypersegmented Neuts Not Reportable 04/18/19 08:28 Hyposegmented Neuts Not Reportable 04/18/19 08:28 Hypogranular Neuts Not Reportable 04/18/19 08:28 Smudge Cells Not Reportable 04/18/19 08:28 Toxic Granulation Not Reportable 04/18/19 08:28 Toxic Vacuolation Not Reportable 04/18/19 08:28 Dohle Bodies Not Reportable 04/18/19 08:28 Pelger-Huet Anomaly Not Reportable 04/18/19 08:28 Phong Rods Not Reportable 04/18/19 08:28 Platelet Estimate Consistent w auto 04/18/19 08:28 Clumped Platelets Not Reportable 04/18/19 08:28 Plt Clumps, EDTA Not Reportable 04/18/19 08:28 Large Platelets Not Reportable 04/18/19 08:28 Giant Platelets Not Reportable 04/18/19 08:28 Platelet Satelliting Not Reportable 04/18/19 08:28 Plt Morphology Comment Not Reportable 04/18/19 08:28 RBC Morphology Not Reportable 04/18/19 08:28 Dimorphic RBCs Not Reportable 04/18/19 08:28 Polychromasia Not Reportable 04/18/19 08:28 Hypochromasia Not Reportable 04/18/19 08:28 Poikilocytosis Not Reportable 04/18/19 08:28 Anisocytosis Not Reportable 04/18/19 08:28 Microcytosis Not Reportable 04/18/19 08:28 Macrocytosis Not Reportable 04/18/19 08:28 Spherocytes Not Reportable 04/18/19 08:28 Pappenheimer Bodies Not Reportable 04/18/19 08:28 Sickle Cells Not Reportable 04/18/19 08:28 Target Cells Not Reportable 04/18/19 08:28 Tear Drop Cells Not Reportable 04/18/19 08:28 Ovalocytes Not Reportable 04/18/19 08:28 Helmet Cells Not Reportable 04/18/19 08:28 Cutler-Hough Bodies Not Reportable 04/18/19 08:28 [place] Rings Not Reportable 04/18/19 08:28 Jose Cells Not Reportable 04/18/19 08:28 Bite Cells Not Reportable 04/18/19 08:28 Crenated Cell Not Reportable 04/18/19 08:28 Elliptocytes Not Reportable 04/18/19 08:28 Acanthocytes (Spur) Not Reportable 04/18/19 08:28 Rouleaux Not Reportable 04/18/19 08:28 Hemoglobin C Crystals Not Reportable 04/18/19 08:28 Schistocytes Not Reportable 04/18/19 08:28 Malaria parasites Not Reportable 04/18/19 08:28 Facundo Bodies Not Reportable 04/18/19 08:28 Hem Pathologist Commnt No 04/18/19 08:28 PT 15.8 Sec. (12.2-14.9) H 04/18/19 08:28 INR 1.24 (0.87-1.13) H 04/18/19 08:28 ABG pH 7.359 pH Units (7.350-7.450) 04/18/19 13:06 ABG pCO2 47.3 mm Hg 04/18/19 13:06 ABG pO2 143.7 mm Hg (80.0-90.0) H 04/18/19 13:06 ABG HCO3 26.0 mmol/L (20.0-26.0) 04/18/19 13:06 ABG O2 Saturation 98.7 % (95.0-99.0) 04/18/19 13:06 ABG O2 Content 13.8 (0.0-44) 04/17/19 05:07 ABG Base Excess 0.3 mmol/L (-2.0-3.0) 04/18/19 13:06 ABG Hemoglobin 9.4 gm/dl (12.0-16.0) L 04/18/19 13:06 ABG Carboxyhemoglobin 2.1 % (0.0-5.0) 04/18/19 13:06 ABG Methemoglobin 0.5 % (0.0-1.5) 04/18/19 13:06 Oxyhemoglobin 96.1 % (95.0-99.0) 04/18/19 13:06 FiO2 36 % 04/18/19 13:06 Sodium 142 mmol/L (137-145) 04/17/19 04:52 Potassium 3.6 mmol/L (3.6-5.0) D 04/17/19 04:52 Chloride 96.1 mmol/L (98-107) L 04/17/19 04:52 Carbon Dioxide 26 mmol/L (22-30) 04/17/19 04:52 Anion Gap 24 mmol/L 04/17/19 04:52 BUN 32 mg/dL (7-17) H 04/17/19 04:52 Creatinine 5.7 mg/dL (0.7-1.2) H 04/17/19 04:52 Estimated GFR 9 ml/min 04/17/19 04:52 BUN/Creatinine Ratio 6 % 04/17/19 04:52 Glucose 167 mg/dL (65-100) H 04/18/19 18:23 POC Glucose 209 (70-105) H 04/18/19 22:20 Calcium 8.0 mg/dL (8.4-10.2) L 04/17/19 04:52 Total Bilirubin 0.80 mg/dL (0.1-1.2) 04/16/19 05:36 AST 39 units/L (5-40) 04/16/19 05:36 ALT 19 units/L (7-56) 04/16/19 05:36 Alkaline Phosphatase 95 units/L (35-129) 04/16/19 05:36 Total Protein 7.2 g/dL (6.3-8.2) 04/16/19 05:36 Albumin 3.8 g/dL (3.9-5) L 04/16/19 05:36 Albumin/Globulin Ratio 1.1 % 04/16/19 05:36 Lipase 12 units/L (13-60) L 04/14/19 12:07 Hepatitis A IgM Ab Non-reactive (NonReactive) 04/14/19 17:30 Hep Bs Antigen Non-reactive (Negative) 04/14/19 17:30 Hep B Core IgM Ab Non-reactive (NonReactive) 04/14/19 17:30 Hepatitis C Antibody Non-reactive (NonReactive) 04/14/19 17:30 Active Medications - Current Medications Current Medications: Generic Name Dose Route Start Last Admin Trade Name Freq PRN Reason Stop Dose Admin Acetaminophen 650 mg 04/14/19 13:14 04/16/19 13:50 Tylenol PO 650 mg Q4H PRN Administration Pain MILD(1-3)/Fever >100.5/GROVE Aspirin 325 mg 04/15/19 10:00 04/18/19 10:56 Aspirin PO 325 mg DAILY ABDIEL Administration Dextrose 0 ml 04/16/19 11:00 D50w (25gm) Syringe IV ONCE ABDIEL Sodium Chloride 100 mls @ 999 mls/hr 04/14/19 17:06 Nacl 0.9% IV NAOMI PRN Hypotension Isosorbide Mononitrate 60 mg 04/15/19 10:00 04/18/19 10:56 Imdur PO Not Given QDAY ABDIEL Ondansetron HCl 4 mg 04/14/19 13:14 Zofran IV Q8H PRN Nausea And Vomiting Pravastatin Sodium 80 mg 04/14/19 22:00 04/19/19 00:00 Pravachol PO 80 mg QHS ABDIEL Administration Sodium Chloride 10 ml 04/14/19 22:00 04/19/19 00:00 Sodium Chloride Flush Syringe 10 Ml IV 10 ml BID ABDIEL Administration Sodium Chloride 10 ml 04/14/19 13:14 Sodium Chloride Flush Syringe 10 Ml IV PRN PRN LINE FLUSH Nutrition/Malnutrition Assess - Dietary Evaluation Nutrition/Malnutrition Findings: Nutrition Notes Start: 04/18/19 11:09 Freq: Status: Active Protocol: Document 04/18/19 11:10 LM (Rec: 04/18/19 11:43 LM [id number]) Nutrition Notes Need for Assessment generated from: MD Order Initial or Follow up Assessment Current Diagnosis CKD (stage V CKD),Diabetes, Hypertension,Heart Failure, Stroke Other Pertinent Diagnosis Dementia, asthma, DM ulcer of Rheel and L calf Current Diet Renal Labs/Tests Reviewed Pertinent Medications Reviewed Height 5 ft 2 in Weight 72.9 kg [place] Body Weight (kg) 50.00 BMI 29.4 Subjective/Other Information MD consult for ONS. Pt hesitant to answer questions. Pt stated she did not eat breakfast this AM. Observed breakfast tray untouched. 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 Pt with DM ulcer of the L calf and R heel. Burn Absent Trauma Absent GI Symptoms None Minimum of two criteria No Reduced Career Information Specialist Strength Measurably Reduced (severe) #2 Nutrition Diagnosis Increased nutrient needs ( specify in comment below) Comments: Protein Etiology wound healing As Evidenced by Signs and Symptoms Pt with DM ulcer of the L calf and R heel #1 Nutrition Diagnosis Inadequate oral intake Etiology Dementia, chronic illness As Evidenced by Signs and Symptoms pt not eating breakfast Is patient on ventilator? No Is Patient Ambulatory and/or Out of Bed No REE-([facility]-confined to bed) 1495.776 Kcal/Kg value to use for calculation 17 Approximate Energy Requirements Using 1239 kcal/Kg Calculation Used for Recommendations Kcal/kg Additional Notes Protein: >73g (>1.2g/kg AdjBW 61kg) Fluid: 1-1.5 L/day or per MD Nutrition Intervention Change Diet Order: Continue renal diet Add Supplement/Snack (indicate name/kcal Nepro BID /protein ) Provides kCal: 850 Provides Protein (gm) 38 Goal #1 Meet at least 75% of energy and portein needs via PO and ONS Goal #2 wound healing Anticipated Discharge Needs: renal diet Follow-Up By: 04/20/19 Additional Comments F/U for PO/ONS intakes and tolerance
[2019-04-19] MEDS: ASPIRIN 325 MG TAB PO SCH (09:56)
--- NOTE | 2019-04-19 13:14 | Progress Note ---
Assessment and Plan Patient sleeping. Not responding to verbal stimuli. She is on room air with an O2 saturation of 100%. BP is 101/44. Patient is afebrile without leukocytosis. Chest X ray 04/17/2019 showed Small right pleural effusion. No interstitial pulmonary edema identified. Stable cardiomegaly. ABG 04/18/2019 on FiO2 36% ABG pH 7.359 pH Units (7.350-7.450) 04/18/19 13:06 ABG pCO2 47.3 mm Hg 04/18/19 13:06 ABG pO2 143.7 mm Hg (80.0-90.0) H 04/18/19 13:06 ABG O2 Saturation 98.7 % (95.0-99.0) 04/18/19 13:06 - Patient Problems (1) Acidosis Current Visit: Yes Status: Acute Plan to address problem: Patient's Respiratory Acidosis is improving. last PCO2 is 47 (2) CHF (congestive heart failure) Current Visit: Yes Status: Acute Qualifiers: Heart failure type: diastolic Heart failure chronicity: chronic Qualified Code(s): I50.32 - Chronic diastolic (congestive) heart failure Plan to address problem: Management per Cardiology (3) Diabetes Current Visit: Yes Status: Acute Plan to address problem: Management per Primary Care (4) ESRD needing dialysis Current Visit: Yes Status: Acute Plan to address problem: Management per Nephrology (5) Hyperkalemia Current Visit: Yes Status: Acute Plan to address problem: Hyperkalemia Corrected Last potassium is 3.6 Subjective Date of service: 04/19/19 Principal diagnosis: Hyperkalemia, volume overload, end-stage renal disease Interval history: Patient sleeping. Not responding to verbal stimuli. She is on room air with an O2 saturation of 100%. BP is 101/44. Patient is afebrile without leukocytosis. Chest X ray 04/17/2019 showed Small right pleural effusion. No interstitial pulmonary edema identified. Stable cardiomegaly. ABG 04/18/2019 on FiO2 36% ABG pH 7.359 pH Units (7.350-7.450) 04/18/19 13:06 ABG pCO2 47.3 mm Hg 04/18/19 13:06 ABG pO2 143.7 mm Hg (80.0-90.0) H 04/18/19 13:06 ABG O2 Saturation 98.7 % (95.0-99.0) 04/18/19 13:06 Objective Vital Signs - 12hr 04/19/19 04/19/19 04/19/19 01:16 01:30 01:46 Temperature Pulse Rate 71 62 70 Pulse Rate [ From Monitor] Respiratory 11 L 9 L 12 Rate Blood Pressure 140/32 140/32 140/32 O2 Sat by Pulse 100 100 100 Oximetry O2 Sat by Pulse Oximetry [ Anterior Bilateral Throughout] 04/19/19 04/19/19 04/19/19 02:00 02:16 02:30 Temperature Pulse Rate 70 70 68 Pulse Rate [ From Monitor] Respiratory 13 9 L 8 L Rate Blood Pressure 130/40 130/40 130/40 O2 Sat by Pulse 100 100 100 Oximetry O2 Sat by Pulse Oximetry [ Anterior Bilateral Throughout] 04/19/19 04/19/19 04/19/19 02:46 03:00 03:16 Temperature Pulse Rate 72 71 67 Pulse Rate [ From Monitor] Respiratory 13 11 L 10 L Rate Blood Pressure 130/40 130/40 123/27 O2 Sat by Pulse 100 100 100 Oximetry O2 Sat by Pulse Oximetry [ Anterior Bilateral Throughout] 04/19/19 04/19/19 04/19/19 03:30 03:41 03:46 Temperature 97.4 F L Pulse Rate 71 66 Pulse Rate [ From Monitor] Respiratory 11 L 13 Rate Blood Pressure 123/27 123/27 O2 Sat by Pulse 100 100 Oximetry O2 Sat by Pulse Oximetry [ Anterior Bilateral Throughout] 04/19/19 04/19/19 04/19/19 04:00 04:16 04:30 Temperature Pulse Rate 72 67 70 Pulse Rate [ 72 From Monitor] Respiratory 12 10 L 9 L Rate Blood Pressure 115/63 115/63 115/63 O2 Sat by Pulse 100 100 100 Oximetry O2 Sat by Pulse Oximetry [ Anterior Bilateral Throughout] 04/19/19 04/19/19 04/19/19 04:46 05:00 05:16 Temperature Pulse Rate 67 70 63 Pulse Rate [ From Monitor] Respiratory 8 L 9 L 9 L Rate Blood Pressure 115/63 116/36 116/36 O2 Sat by Pulse 100 100 100 Oximetry O2 Sat by Pulse Oximetry [ Anterior Bilateral Throughout] 04/19/19 04/19/19 04/19/19 05:30 05:46 06:00 Temperature Pulse Rate 69 71 69 Pulse Rate [ From Monitor] Respiratory 9 L 9 L 9 L Rate Blood Pressure 116/36 116/36 112/42 O2 Sat by Pulse 100 100 100 Oximetry O2 Sat by Pulse Oximetry [ Anterior Bilateral Throughout] 04/19/19 04/19/19 04/19/19 06:16 06:30 06:46 Temperature Pulse Rate 70 67 68 Pulse Rate [ From Monitor] Respiratory 9 L 9 L 9 L Rate Blood Pressure 112/42 112/42 112/42 O2 Sat by Pulse 100 100 100 Oximetry O2 Sat by Pulse Oximetry [ Anterior Bilateral Throughout] 04/19/19 04/19/19 04/19/19 07:00 07:16 07:30 Temperature Pulse Rate 73 69 67 Pulse Rate [ From Monitor] Respiratory 11 L 9 L 9 L Rate Blood Pressure 125/70 125/70 125/70 O2 Sat by Pulse 100 100 99 Oximetry O2 Sat by Pulse Oximetry [ Anterior Bilateral Throughout] 04/19/19 04/19/19 04/19/19 07:46 08:00 08:16 Temperature 98.2 F Pulse Rate 71 60 67 Pulse Rate [ 68 From Monitor] Respiratory 14 16 13 Rate Blood Pressure 125/70 99/53 99/53 O2 Sat by Pulse 87 100 100 Oximetry O2 Sat by Pulse Oximetry [ Anterior Bilateral Throughout] 04/19/19 04/19/19 04/19/19 08:30 08:46 09:00 Temperature 98.2 F Pulse Rate 67 67 71 Pulse Rate [ From Monitor] Respiratory 13 9 L 16 Rate Blood Pressure 99/53 99/53 130/37 O2 Sat by Pulse 100 100 100 Oximetry O2 Sat by Pulse 10 L Oximetry [ Anterior Bilateral Throughout] 04/19/19 04/19/19 04/19/19 09:16 09:20 09:30 Temperature Pulse Rate 66 71 65 Pulse Rate [ From Monitor] Respiratory 9 L 8 L Rate Blood Pressure 114/42 130/37 114/42 O2 Sat by Pulse 100 100 Oximetry O2 Sat by Pulse Oximetry [ Anterior Bilateral Throughout] 04/19/19 04/19/19 04/19/19 09:45 09:46 09:56 Temperature Pulse Rate 67 70 68 Pulse Rate [ From Monitor] Respiratory 12 Rate Blood Pressure 121/56 114/42 121/56 O2 Sat by Pulse 100 Oximetry O2 Sat by Pulse Oximetry [ Anterior Bilateral Throughout] 04/19/19 04/19/1920 10:00 10:03 10:15 Temperature Pulse Rate 65 61 62 Pulse Rate [ From Monitor] Respiratory 11 L 16 Rate Blood Pressure 121/56 118/44 117/51 O2 Sat by Pulse 100 100 Oximetry O2 Sat by Pulse Oximetry [ Anterior Bilateral Throughout] 04/19/19 04/19/19 04/19/19 10:30 10:45 10:46 Temperature Pulse Rate 67 60 66 Pulse Rate [ From Monitor] Respiratory 12 10 L Rate Blood Pressure 135/48 119/46 115/46 O2 Sat by Pulse 100 100 Oximetry O2 Sat by Pulse Oximetry [ Anterior Bilateral Throughout] 04/19/19 04/19/19 04/19/19 11:00 11:15 11:30 Temperature Pulse Rate 66 59 L 59 L Pulse Rate [ From Monitor] Respiratory 12 9 L 9 L Rate Blood Pressure 111/40 128/33 128/33 O2 Sat by Pulse 100 100 100 Oximetry O2 Sat by Pulse Oximetry [ Anterior Bilateral Throughout] 04/19/19 04/19/19 04/19/19 11:31 11:45 12:01 Temperature Pulse Rate 63 61 59 L Pulse Rate [ From Monitor] Respiratory Rate Blood Pressure 119/32 141/33 108/26 O2 Sat by Pulse Oximetry O2 Sat by Pulse Oximetry [ Anterior Bilateral Throughout] 04/19/19 04/19/19 04/19/19 12:17 12:32 12:50 Temperature Pulse Rate 60 56 L 72 Pulse Rate [ From Monitor] Respiratory Rate Blood Pressure 130/38 127/58 109/52 O2 Sat by Pulse Oximetry O2 Sat by Pulse Oximetry [ Anterior Bilateral Throughout] Constitutional: no acute distress, asleep Eyes: non-icteric ENT: oropharynx dry Neck: supple, no lymphadenopathy, JVD Effort: mildly labored Ascultation: Bilateral: diminished breath sounds, rales Cardiovascular: regular rate and rhythm Gastrointestinal: normoactive bowel sounds, soft, non-tender Extremities: no cyanosis, no edema Neurologic: unable to assess, other (difficult to arouse) Psychiatric: other (unable to assess due to mental status) CBC and BMP: 04/18/19 08:28 04/18/19 18:23 ABG, PT/INR, D-dimer: ABG ABG pH 7.359 pH Units (7.350-7.450) 04/18/19 13:06 ABG pCO2 47.3 mm Hg 04/18/19 13:06 ABG pO2 143.7 mm Hg (80.0-90.0) H 04/18/19 13:06 ABG O2 Saturation 98.7 % (95.0-99.0) 04/18/19 13:06 PT/INR, D-dimer PT 15.8 Sec. (12.2-14.9) H 04/18/19 08:28 INR 1.24 (0.87-1.13) H 04/18/19 08:28 Abnormal lab findings: Abnormal Labs 04/14/19 04/14/19 04/14/19 12:07 12:07 21:14 WBC 11.4 H RBC 5.08 H MCV 78 L MCH 24 L RDW 25.1 H Plt Count Lymph % (Auto) [place] % (Auto) Lymph # [place] # Seg Neutrophils % Seg Neuts % (Manual) 80.0 H Lymphocytes % (Manual) 9.0 L Monocytes % (Manual) 11.0 H Seg Neutrophils # Man 9.1 H Lymphocytes # (Manual) 1.0 L Monocytes # (Manual) 1.3 H PT INR ABG pH ABG pO2 ABG HCO3 ABG Hemoglobin Sodium 135 L Potassium 8.0 H* Chloride 86.4 L Carbon Dioxide 12 L BUN 109 H Creatinine 10.8 H Glucose POC Glucose 121 H Calcium Total Bilirubin 2.10 H Alkaline Phosphatase 130 H Total Protein 9.0 H Albumin Lipase 12 L 04/15/19 04/15/19 04/15/19 08:14 10:06 11:40 WBC RBC MCV MCH RDW Plt Count Lymph % (Auto) [place] % (Auto) Lymph # [place] # Seg Neutrophils % Seg Neuts % (Manual) Lymphocytes % (Manual) Monocytes % (Manual) Seg Neutrophils # Man Lymphocytes # (Manual) Monocytes # (Manual) PT INR ABG pH ABG pO2 ABG HCO3 ABG Hemoglobin Sodium 135 L Potassium 5.2 H D Chloride 95.7 L Carbon Dioxide 18 L BUN 71 H Creatinine 8.2 H Glucose 107 H POC Glucose 124 H 114 H Calcium 8.0 L D Total Bilirubin Alkaline Phosphatase Total Protein Albumin Lipase 04/15/19 04/15/19 04/16/19 15:45 21:34 05:36 WBC RBC MCV 78 L MCH 24 L RDW 24.8 H Plt Count 103 L Lymph % (Auto) 9.5 L [place] % (Auto) 13.4 H Lymph # 0.8 L [place] # 1.1 H Seg Neutrophils % 75.8 H Seg Neuts % (Manual) Lymphocytes % (Manual) Monocytes % (Manual) Seg Neutrophils # Man Lymphocytes # (Manual) Monocytes # (Manual) PT INR ABG pH ABG pO2 ABG HCO3 ABG Hemoglobin Sodium Potassium Chloride Carbon Dioxide BUN Creatinine Glucose POC Glucose 145 H 120 H Calcium Total Bilirubin Alkaline Phosphatase Total Protein Albumin Lipase 04/16/19 04/16/19 04/16/19 05:36 11:12 16:42 WBC RBC MCV MCH RDW Plt Count Lymph % (Auto) [place] % (Auto) Lymph # [place] # Seg Neutrophils % Seg Neuts % (Manual) Lymphocytes % (Manual) Monocytes % (Manual) Seg Neutrophils # Man Lymphocytes # (Manual) Monocytes # (Manual) PT INR ABG pH ABG pO2 ABG HCO3 ABG Hemoglobin Sodium Potassium 6.9 H* D Chloride 92.5 L Carbon Dioxide 20 L BUN 79 H Creatinine 9.0 H Glucose POC Glucose 177 H 168 H Calcium 8.2 L Total Bilirubin Alkaline Phosphatase Total Protein Albumin 3.8 L Lipase 04/16/19 04/17/19 04/17/19 23:04 04:52 05:07 WBC RBC MCV MCH RDW Plt Count Lymph % (Auto) [place] % (Auto) Lymph # [place] # Seg Neutrophils % Seg Neuts % (Manual) Lymphocytes % (Manual) Monocytes % (Manual) Seg Neutrophils # Man Lymphocytes # (Manual) Monocytes # (Manual) PT INR ABG pH 7.319 L ABG pO2 137.3 H ABG HCO3 28.1 H ABG Hemoglobin 10.0 L Sodium Potassium Chloride 96.1 L Carbon Dioxide BUN 32 H Creatinine 5.7 H Glucose 101 H POC Glucose 128 H Calcium 8.0 L Total Bilirubin Alkaline Phosphatase Total Protein Albumin Lipase 04/17/19 04/17/19 04/18/19 18:23 22:54 08:28 WBC RBC MCV 77 L MCH 25 L RDW 24.9 H Plt Count 93 L Lymph % (Auto) [place] % (Auto) Lymph # [place] # Seg Neutrophils % Seg Neuts % (Manual) 72.0 H Lymphocytes % (Manual) 13.0 L Monocytes % (Manual) 14.0 H Seg Neutrophils # Man Lymphocytes # (Manual) Monocytes # (Manual) 1.3 H PT INR ABG pH ABG pO2 ABG HCO3 ABG Hemoglobin Sodium Potassium Chloride Carbon Dioxide BUN Creatinine Glucose POC Glucose 318 H 117 H Calcium Total Bilirubin Alkaline Phosphatase Total Protein Albumin Lipase 04/18/19 04/18/19 04/18/19 08:28 11:43 13:06 WBC RBC MCV MCH RDW Plt Count Lymph % (Auto) [place] % (Auto) Lymph # [place] # Seg Neutrophils % Seg Neuts % (Manual) Lymphocytes % (Manual) Monocytes % (Manual) Seg Neutrophils # Man Lymphocytes # (Manual) Monocytes # (Manual) PT 15.8 H INR 1.24 H ABG pH ABG pO2 143.7 H ABG HCO3 ABG Hemoglobin 9.4 L Sodium Potassium Chloride Carbon Dioxide BUN Creatinine Glucose POC Glucose 202 H Calcium Total Bilirubin Alkaline Phosphatase Total Protein Albumin Lipase 04/18/19 04/18/19 04/18/19 17:29 18:23 22:20 WBC RBC MCV MCH RDW Plt Count Lymph % (Auto) [place] % (Auto) Lymph # [place] # Seg Neutrophils % Seg Neuts % (Manual) Lymphocytes % (Manual) Monocytes % (Manual) Seg Neutrophils # Man Lymphocytes # (Manual) Monocytes # (Manual) PT INR ABG pH ABG pO2 ABG HCO3 ABG Hemoglobin Sodium Potassium Chloride Carbon Dioxide BUN Creatinine Glucose 167 H POC Glucose > 500 H 209 H Calcium Total Bilirubin Alkaline Phosphatase Total Protein Albumin Lipase 04/19/19 04/19/19 09:57 11:40 WBC RBC MCV MCH RDW Plt Count Lymph % (Auto) [place] % (Auto) Lymph # [place] # Seg Neutrophils % Seg Neuts % (Manual) Lymphocytes % (Manual) Monocytes % (Manual) Seg Neutrophils # Man Lymphocytes # (Manual) Monocytes # (Manual) PT INR ABG pH ABG pO2 ABG HCO3 ABG Hemoglobin Sodium Potassium Chloride Carbon Dioxide BUN Creatinine Glucose POC Glucose 171 H 151 H Calcium Total Bilirubin Alkaline Phosphatase Total Protein Albumin Lipase Chest x-ray: report reviewed, image reviewed Additional Studies: CHEST 1 VIEW 04/17/19 INDICATION / CLINICAL INFORMATION: Pulmonary edema. COMPARISON: 02/05/2016 FINDINGS: SUPPORT DEVICES: Pacemaker/defibrillator device stable in position. HEART / MEDIASTINUM: Enlarged, stable. LUNGS / PLEURA: Small right pleural effusion is present. Left lung is well expanded and clear. No interstitial pulmonary edema. No pneumothorax. ADDITIONAL FINDINGS: No significant additional findings. IMPRESSION: 1. Small right pleural effusion. No interstitial pulmonary edema identified. 2. Stable cardiomegaly.
--- NOTE | 2019-04-19 14:57 | Discharge Summary ---
Providers - Providers Date of Admission: 04/15/19 12:14 Date of discharge: 04/20/19 Attending physician: RONNIE NDIAYE 04/14/19 14:18 Consult to Physician [CONS] Urgent Comment: Consulting Provider: TONIO SOLANO Physician Instructions: Reason For Exam: Hyperkalemia, needs hemodialysis 04/15/19 04:03 Consult to Wound/ET Nurse [CONS] Routine Reason For Exam: wound eval 04/15/19 07:45 Consult to Wound/ET Nurse [CONS] Routine Reason For Exam: wound eval 04/16/19 12:17 Consult to Physician [CONS] Urgent Comment: Consulting Provider: INOCENCIA DIEGO Physician Instructions: Reason For Exam: critical care management 04/19/19 14:14 Physical Therapy Evaluation and Treat [CONS] Routine Comment: Reason For Exam: General debility/weakness Primary care physician: [employer] Hospitalization Reason for admission: Nausea vomiting/acute on chronic diastolic congestive heart failure Condition: Stable Pertinent studies: Chest x-ray; small right pleural effusion no edema stable cardiomegaly Hospital course: 63 YO Female with HTN, DM, Asthma, Dementia, Obesity Hypoventilation Syndrome, CVA, ESRD on HD(M,W,F), CHF, Cardiomyopathy S/P ICD Placement presents to ED for evaluation. Patient states that she has experienced nausea multiple episodes of vomiting and loose stools over the past 3 days with concomitant weakness over the same timeframe. Patient states that her symptoms prevent her from going to dialysis. Patient states that she has missed multiple dialysis sessions due to the aforementioned symptoms. Patient states that she feels better today with resolution of the aforementioned symptoms. EMS notified and upon arrival the patient was found to be in distress and subsequently transported to [facility] for further care and evaluation. Patient seen and evaluated in the emergency department. Patient found to have end-stage renal disease and in need of urgent dialysis, fluid overload, metabolic acidosis. Nephrology following. Patient blood pressures blood sugars closely monitor medications adjusted Today patient is being transferred to [facility] for further evaluation and management Patient needs home oxygen 2 to 3 L to titrate O2 sats to more than 90% Discharge diagnosis --Hypotension s/p Vasopressor , blood pressures in the lower range --End stage renal disease Current Visit: Yes Status: Acute Hemodialysis once blood pressure stable --Metabolic acidosis Current Visit: Yes Status: Acute Improved --Essential hypertension Current Visit: Yes Status: Acute Monitor blood pressure every shift, supportive care. Patient hypotensive now --Type II diabetes mellitus Current Visit: Yes Status: Acute Sliding scale insulin therapy, consistent carbohydrate diet, Accu-Chek, hypoglycemia protocol Coverage for now --Obesity hypoventilation syndrome Current Visit: Yes Status: Acute Supplemental oxygen nebulizer therapy, chest x-ray, pulse oximetry, noninvasive positive pressure ventilation as clinically indicated, balanced diet at discharge Patient needs home oxygen --Hyperkalemia Current Visit: Yes Status: Acute Calcium gluconate, Kayexalate, urgent dialysis, insulin, D50, repeat BMP in a.m. No EKG changes. Potassium level corrected --Acute on chronic diastolic CHF (congestive heart failure) with volume overload Current Visit: Yes Status: Acute Hemodialysis ,strict I's/O, daily weight, monitor urine output every shift, blood pressure control, supplemental oxygen, -- DVT prophylaxis Current Visit: Yes Status: Acute SCDs while in bed, patient is ambulatory -- Advance care planning Current Visit: Yes Status: Acute Patient is full code, disease education conducted, patient counseled regarding noncompliance with dialysis. Patient and daughter acknowledged understanding and agreement with care plan. Patient is being transferred to LTAC for further evaluation and management Disposition: [id number] MEDICARE CERT LT Time spent for discharge: 32 min Core Measure Documentation - Palliative Care Palliative Care/ Comfort Measures: Not Applicable - Core Measures Any of the following diagnoses?: none Exam - Constitutional Vitals: Temp Pulse Resp BP Pulse Ox 98.4 F 66 12 101/44 10 L 04/19/19 13:20 04/19/19 13:20 04/19/19 13:20 04/19/19 13:20 04/19/19 13:20 General appearance: Present: no acute distress, well-nourished - EENT Eyes: Present: PERRL, EOM intact - Neck Neck: Present: supple, normal ROM - Respiratory Respiratory effort: normal Respiratory: bilateral: diminished, negative: rales, rhonchi, wheezing - Cardiovascular Rhythm: regular Heart Sounds: Present: S1 & S2 - Extremities Extremities: no ischemia, No edema - Abdominal General gastrointestinal: Present: soft, non-tender, non-distended, normal bowel sounds - Integumentary Integumentary: Present: clear, warm - Musculoskeletal Musculoskeletal: strength equal bilaterally, generalized weakness - Psychiatric Psychiatric: appropriate mood/affect, cooperative Plan Activity: advance as tolerated, fall precautions Diet: diabetic, renal Additional Instructions: Follow renal, hemodialysis per schedule TTS. Fall precautions. Transfer to LTAC Follow up with: PRIMARY CAREMD [Primary Care Provider] - 3-5 Days JOE MOCTEZUMA MD [Staff Physician] - 7 Days DALILA ZUNIGA MD [Staff Physician] - 7 Days
[2019-04-19 16:01] LABS: Hematocrit 35.3 % (30.3-42.9); Mean Corpuscular HGB Conc 31 % (30-34); Mean Corpuscular Volume 79 fl (79-97); Red Blood Count 4.48 M/mm3 (3.65-5.03)
[2019-04-19 16:03] LABS: Red Cell Distribution Width 26.2 % (13.2-15.2)
[2019-04-19 16:04] LABS: Platelet Count 106 K/mm3 (140-440)
[2019-04-19 16:07] LABS: Albumin 4.2 g/dL (3.9-5); Calcium 8.7 mg/dL (8.4-10.2)
[2019-04-19 16:41] LABS: Basophils % (Manual) 0 % (0.0-1.8); Total Cells Counted 100
[2019-04-19 16:42] LABS: Anisocytosis 1+; Platelet Estimate Consistent w Auto
--- NOTE | 2019-04-19 21:32 | Progress Note ---
Subjective Principal diagnosis: Hyperkalemia, volume overload, end-stage renal disease Interval history: Patient was seen today for follow-up of multiple renal related issues, in the critical care setting, around 9:00 in the morning daughter is at bedside She is not even aware where she goes for dialysis Interdisciplinary notes that also reviewed Events of 24 hours vitals labs intake output medications were reviewed Past medical history: Reviewed Family history: Reviewed Social history: Reviewed Allergies: Reviewed Physical examination: Vitals: Reviewed HEENT: No pallor or icterus oral mucosa moist Neck: Supple no JVD no thyromegaly Chest: Bilateral clear to auscultation anteriorly Heart: Regular rate and rhythm S1-S2 heard no S3-S4 Abdomen: Soft nontender no voluntary guarding rigidity rebound Extremity: Dry skin less than 1+ peripheral edema Psychiatric: No evidence of agitation and aggression noted Dermatology: No petechial rashes Labs and x-rays: Reviewed from today Assessment and plan End-stage renal disease patient is currently on maintenance hemodialysis on Thursday and Thursday schedule we will write a new prescription for hemo She will need follow-up labs Admitted after missing dialysis treatmen noncompliance Would not place her on lisinopril due to noncompliance Prognosis very poor, due to dialysis status or mortality risk is also very high with missing treatment discussed with daughter at length If stable postdialysis she can be discharged from renal stand point Hyponatremia: Needs ongoing monitoring and follow-up likely was due to renal failure and volume Hyperkalemia: Needs close monitoring and follow-up, admitted with a potassium of 8.0 Noted to be markedly noncompliant missing 3 dialysis treatments high mortality risk patient's daughter has been educated She must comply with treatment recommendation Time spent 35 minutes We'll continue to follow and make recommendation for renal standpoint Objective - Vital Signs Vital signs: Vital Signs - 12hr 04/19/19 04/19/19 04/19/19 09:30 09:45 09:46 Temperature Pulse Rate 65 67 70 Pulse Rate [ From Monitor] Respiratory 8 L 12 Rate Blood Pressure 114/42 121/56 114/42 O2 Sat by Pulse 100 100 Oximetry O2 Sat by Pulse Oximetry [ Anterior Bilateral Throughout] 04/19/19 04/19/19 04/19/19 09:56 10:00 10:03 Temperature Pulse Rate 68 65 61 Pulse Rate [ From Monitor] Respiratory 11 L Rate Blood Pressure 121/56 121/56 118/44 O2 Sat by Pulse 99 Oximetry O2 Sat by Pulse Oximetry [ Anterior Bilateral Throughout] 04/19/19 04/19/19 04/19/19 10:15 10:30 10:45 Temperature Pulse Rate 62 67 60 Pulse Rate [ From Monitor] Respiratory 16 12 Rate Blood Pressure 117/51 135/48 119/46 O2 Sat by Pulse 100 100 Oximetry O2 Sat by Pulse Oximetry [ Anterior Bilateral Throughout] 04/19/19 04/19/19 04/19/19 10:46 11:00 11:15 Temperature Pulse Rate 66 66 59 L Pulse Rate [ From Monitor] Respiratory 10 L 12 9 L Rate Blood Pressure 115/46 111/40 128/33 O2 Sat by Pulse 100 100 100 Oximetry O2 Sat by Pulse Oximetry [ Anterior Bilateral Throughout] 04/19/19 04/19/19 04/19/19 11:30 11:31 11:45 Temperature Pulse Rate 59 L 63 61 Pulse Rate [ From Monitor] Respiratory 9 L Rate Blood Pressure 128/33 119/32 141/33 O2 Sat by Pulse 100 Oximetry O2 Sat by Pulse Oximetry [ Anterior Bilateral Throughout] 04/19/19 04/19/19 04/19/19 11:46 12:00 12:01 Temperature 98.4 F Pulse Rate 60 63 59 L Pulse Rate [ 69 From Monitor] Respiratory 10 L 10 L Rate Blood Pressure 141/33 141/33 108/26 O2 Sat by Pulse 100 100 Oximetry O2 Sat by Pulse Oximetry [ Anterior Bilateral Throughout] 04/19/19 04/19/19 04/19/19 12:15 12:17 12:30 Temperature Pulse Rate 57 L 60 62 Pulse Rate [ From Monitor] Respiratory 9 L 10 L Rate Blood Pressure 130/38 130/38 127/58 O2 Sat by Pulse 100 100 Oximetry O2 Sat by Pulse Oximetry [ Anterior Bilateral Throughout] 04/19/19 04/19/19 04/19/19 12:32 12:45 12:50 Temperature Pulse Rate 56 L 63 72 Pulse Rate [ From Monitor] Respiratory 14 Rate Blood Pressure 127/58 109/42 109/52 O2 Sat by Pulse 98 Oximetry O2 Sat by Pulse Oximetry [ Anterior Bilateral Throughout] 04/19/19 04/19/19 04/19/19 13:00 13:15 13:20 Temperature 98.4 F Pulse Rate 75 71 66 Pulse Rate [ From Monitor] Respiratory 17 13 12 Rate Blood Pressure 115/51 101/44 101/44 O2 Sat by Pulse 91 100 Oximetry O2 Sat by Pulse 10 L Oximetry [ Anterior Bilateral Throughout] 04/19/19 04/19/19 04/19/19 13:30 13:46 14:00 Temperature Pulse Rate 63 60 61 Pulse Rate [ From Monitor] Respiratory 9 L 10 L 9 L Rate Blood Pressure 121/14 109/19 107/40 O2 Sat by Pulse 100 100 100 Oximetry O2 Sat by Pulse Oximetry [ Anterior Bilateral Throughout] 04/19/19 04/19/19 04/19/19 14:16 14:30 14:46 Temperature Pulse Rate 63 62 74 Pulse Rate [ From Monitor] Respiratory 9 L 9 L 17 Rate Blood Pressure 107/40 91/50 111/29 O2 Sat by Pulse 100 100 96 Oximetry O2 Sat by Pulse Oximetry [ Anterior Bilateral Throughout] 04/19/19 04/19/19 04/19/19 15:00 15:15 15:30 Temperature Pulse Rate 69 71 68 Pulse Rate [ From Monitor] Respiratory 14 13 13 Rate Blood Pressure 111/29 122/47 122/47 O2 Sat by Pulse 88 91 100 Oximetry O2 Sat by Pulse Oximetry [ Anterior Bilateral Throughout] 04/19/19 04/19/19 04/19/19 15:46 16:00 16:16 Temperature 98.7 F Pulse Rate 73 69 63 Pulse Rate [ 63 From Monitor] Respiratory 17 12 8 L Rate Blood Pressure 116/24 116/24 116/24 O2 Sat by Pulse 100 100 Oximetry O2 Sat by Pulse Oximetry [ Anterior Bilateral Throughout] 04/19/19 04/19/19 04/19/19 16:30 16:46 17:00 Temperature Pulse Rate 66 62 62 Pulse Rate [ From Monitor] Respiratory 9 L 9 L 9 L Rate Blood Pressure 110/26 109/27 109/27 O2 Sat by Pulse 100 100 100 Oximetry O2 Sat by Pulse Oximetry [ Anterior Bilateral Throughout] 04/19/19 04/19/19 04/19/19 17:16 17:30 17:46 Temperature Pulse Rate 67 67 70 Pulse Rate [ From Monitor] Respiratory 13 14 13 Rate Blood Pressure 137/42 137/42 113/50 O2 Sat by Pulse 100 100 100 Oximetry O2 Sat by Pulse Oximetry [ Anterior Bilateral Throughout] 03/10/20 03/10/20 03/10/20 18:00 18:16 18:30 Temperature Pulse Rate 72 73 74 Pulse Rate [ From Monitor] Respiratory 12 11 L 15 Rate Blood Pressure 104/58 104/58 104/58 O2 Sat by Pulse 100 99 100 Oximetry O2 Sat by Pulse Oximetry [ Anterior Bilateral Throughout] 04/19/19 04/19/19 04/19/19 18:46 19:00 19:16 Temperature Pulse Rate 67 71 73 Pulse Rate [ From Monitor] Respiratory 14 12 13 Rate Blood Pressure 45/30 45/30 121/29 O2 Sat by Pulse 100 100 100 Oximetry O2 Sat by Pulse Oximetry [ Anterior Bilateral Throughout] 04/19/19 04/19/19 19:30 20:00 Temperature 98.6 F Pulse Rate 68 Pulse Rate [ From Monitor] Respiratory 10 L Rate Blood Pressure 121/29 O2 Sat by Pulse 99 Oximetry O2 Sat by Pulse Oximetry [ Anterior Bilateral Throughout] - Lab 04/19/19 15:19 04/19/19 15:30 Most recent lab results ABG pH 7.359 pH Units (7.350-7.450) 04/18/19 13:06 ABG pCO2 47.3 mm Hg 04/18/19 13:06 ABG pO2 143.7 mm Hg (80.0-90.0) H 04/18/19 13:06 ABG HCO3 26.0 mmol/L (20.0-26.0) 04/18/19 13:06 ABG O2 Saturation 98.7 % (95.0-99.0) 04/18/19 13:06 Calcium 8.7 mg/dL (8.4-10.2) 04/19/19 15:30 Phosphorus 3.90 mg/dL (2.5-4.5) 04/19/19 15:30 Medications & Allergies - Medications Allergies/Adverse Reactions: Allergies No Known Allergies Allergy (Verified 06/02/14 09:28) Home Medications: Home Medications Medication Instructions Recorded Confirmed Last Taken Type Aspirin 325 mg PO DAILY 06/02/14 04/16/19 01/08/16 History 325 MG Lovastatin [Altoprev] 40 mg PO DAILY 06/02/14 04/16/19 01/08/16 History 40 MG ISOSORBIDE MONOnitrate [Imdur ER] 60 mg PO QDAY #30 tablet 01/11/16 04/16/19 Unknown Rx Active Medications: Generic Name Dose Route Start Last Admin Trade Name Freq PRN Reason Stop Dose Admin Acetaminophen 650 mg 04/14/19 13:14 04/16/19 13:50 Tylenol PO 650 mg Q4H PRN Administration Pain MILD(1-3)/Fever >100.5/GROVE Aspirin 325 mg 04/15/19 10:00 04/19/19 09:56 Aspirin PO 325 mg DAILY ABDIEL Administration Dextrose 0 ml 04/16/19 11:00 D50w (25gm) Syringe IV ONCE ABDIEL Sodium Chloride 100 mls @ 999 mls/hr 04/19/19 09:19 Nacl 0.9% IV NAOMI PRN Hypotension Isosorbide Mononitrate 60 mg 04/15/19 10:00 04/19/19 09:56 Imdur PO 60 mg QDAY ABDIEL Administration Ondansetron HCl 4 mg 04/14/19 13:14 Zofran IV Q8H PRN Nausea And Vomiting Pravastatin Sodium 80 mg 04/14/19 22:00 04/19/19 00:00 Pravachol PO 80 mg QHS ABDIEL Administration Sodium Chloride 10 ml 04/14/19 22:00 04/19/19 09:57 Sodium Chloride Flush Syringe 10 Ml IV 10 ml BID ABDIEL Administration Sodium Chloride 10 ml 04/14/19 13:14 Sodium Chloride Flush Syringe 10 Ml IV PRN PRN LINE FLUSH
[2019-04-19] MEDS: PRAVASTATIN 80 MG TAB PO SCH ×2 (22:33)
[2019-04-19] MEDS ORDERED: SODIUM CHLORIDE*PRIMING MACHINE ONLY FOR DIALYSIS MC ONE (22:54)
--- NOTE | 2019-04-20 09:14 | Progress Note ---
Hospitalist Physical - Constitutional Vitals: Temp Pulse Resp BP Pulse Ox 98.6 F 74 18 105/61 100 04/20/19 07:50 04/20/19 08:00 04/20/19 08:00 04/20/19 08:00 04/20/19 08:00 General appearance: Present: no acute distress, well-nourished MAGNO score - Magno Score Age > 65: (0) No Aspirin use within the Past 7 Days: (1) Yes 3 or more CAD Risk Factors: (0) No 2 or more Angina events in past 24 hrs: (0) No Known CAD with more than 50% Stenosis: (0) No Elevated Cardiac Markers: (1) Yes ST Deviation Greater than 0.5mm: (0) No MAGNO Score: 2 Results - Labs CBC & Chem 7: 04/19/19 15:19 04/19/19 15:30 Labs: Laboratory Last Values WBC 8.6 K/mm3 (4.5-11.0) 04/19/19 15:19 RBC 4.48 M/mm3 (3.65-5.03) 04/19/19 15:19 Hgb 11.0 gm/dl (10.1-14.3) 04/19/19 15:19 Hct 35.3 % (30.3-42.9) 04/19/19 15:19 MCV 79 fl (79-97) 04/19/19 15:19 MCH 25 pg (28-32) L 04/19/19 15:19 MCHC 31 % (30-34) 04/19/19 15:19 RDW 26.2 % (13.2-15.2) H 04/19/19 15:19 Plt Count 106 K/mm3 (140-440) L 04/19/19 15:19 Lymph % (Auto) Plastic Welder 04/18/19 08:28 [place] % (Auto) Plastic Welder 04/18/19 08:28 Eos % (Auto) Plastic Welder 04/18/19 08:28 Baso % (Auto) Plastic Welder 04/18/19 08:28 Lymph # Plastic Welder 04/18/19 08:28 [place] # Plastic Welder 04/18/19 08:28 Eos # Plastic Welder 04/18/19 08:28 Baso # Plastic Welder 04/18/19 08:28 Add Manual Diff Complete 04/19/19 15:19 Total Counted 100 04/19/19 15:19 Seg Neutrophils % Plastic Welder 04/18/19 08:28 Seg Neuts % (Manual) 73.0 % (40.0-70.0) H 04/19/19 15:19 Band Neutrophils % 0 % 04/19/19 15:19 Lymphocytes % (Manual) 12.0 % (13.4-35.0) L 04/19/19 15:19 Reactive Lymphs % (Man) 0 % 04/19/19 15:19 Monocytes % (Manual) 11.0 % (0.0-7.3) H 04/19/19 15:19 Eosinophils % (Manual) 4.0 % (0.0-4.3) 04/19/19 15:19 Basophils % (Manual) 0 % (0.0-1.8) 04/19/19 15:19 Metamyelocytes % 0 % 04/19/19 15:19 Myelocytes % 0 % 04/19/19 15:19 Promyelocytes % 0 % 04/19/19 15:19 Blast Cells % 0 % 04/19/19 15:19 Nucleated RBC % Not Reportable 04/19/19 15:19 Seg Neutrophils # Plastic Welder 04/18/19 08:28 Seg Neutrophils # Man 6.3 K/mm3 (1.8-7.7) 04/19/19 15:19 Band Neutrophils # 0.0 K/mm3 04/19/19 15:19 Lymphocytes # (Manual) 1.0 K/mm3 (1.2-5.4) L 04/19/19 15:19 Abs React Lymphs (Man) 0.0 K/mm3 04/19/19 15:19 Monocytes # (Manual) 0.9 K/mm3 (0.0-0.8) H 04/19/19 15:19 Eosinophils # (Manual) 0.3 K/mm3 (0.0-0.4) 04/19/19 15:19 Basophils # (Manual) 0.0 K/mm3 (0.0-0.1) 04/19/19 15:19 Metamyelocytes # 0.0 K/mm3 04/19/19 15:19 Myelocytes # 0.0 K/mm3 04/19/19 15:19 Promyelocytes # 0.0 K/mm3 04/19/19 15:19 Blast Cells # 0.0 K/mm3 04/19/19 15:19 WBC Morphology Not Reportable 04/19/19 15:19 Hypersegmented Neuts Not Reportable 04/19/19 15:19 Hyposegmented Neuts Not Reportable 04/19/19 15:19 Hypogranular Neuts Not Reportable 04/19/19 15:19 Smudge Cells Not Reportable 04/19/19 15:19 Toxic Granulation Not Reportable 04/19/19 15:19 Toxic Vacuolation Not Reportable 04/19/19 15:19 Dohle Bodies Not Reportable 04/19/19 15:19 Pelger-Huet Anomaly Not Reportable 04/19/19 15:19 Phong Rods Not Reportable 04/19/19 15:19 Platelet Estimate Consistent w auto 04/19/19 15:19 Clumped Platelets Not Reportable 04/19/19 15:19 Plt Clumps, EDTA Not Reportable 04/19/19 15:19 Large Platelets Not Reportable 04/19/19 15:19 Giant Platelets Not Reportable 04/19/19 15:19 Platelet Satelliting Not Reportable 04/19/19 15:19 Plt Morphology Comment Not Reportable 04/19/19 15:19 RBC Morphology Not Reportable 04/19/19 15:19 Dimorphic RBCs Not Reportable 04/19/19 15:19 Polychromasia Not Reportable 04/19/19 15:19 Hypochromasia Not Reportable 04/19/19 15:19 Poikilocytosis Not Reportable 04/19/19 15:19 Anisocytosis 1+ 04/19/19 15:19 Microcytosis Not Reportable 04/19/19 15:19 Macrocytosis Not Reportable 04/19/19 15:19 Spherocytes Not Reportable 04/19/19 15:19 Pappenheimer Bodies Not Reportable 04/19/19 15:19 Sickle Cells Not Reportable 04/19/19 15:19 Target Cells Not Reportable 04/19/19 15:19 Tear Drop Cells Not Reportable 04/19/19 15:19 Ovalocytes Not Reportable 04/19/19 15:19 Helmet Cells Not Reportable 04/19/19 15:19 [place] Bodies Not Reportable 04/19/19 15:19 [place] Rings Not Reportable 04/19/19 15:19 [place] Cells Not Reportable 04/19/19 15:19 Bite Cells Not Reportable 04/19/19 15:19 Crenated Cell Not Reportable 04/19/19 15:19 Elliptocytes Not Reportable 04/19/19 15:19 Acanthocytes (Spur) Not Reportable 04/19/19 15:19 Rouleaux Not Reportable 04/19/19 15:19 Hemoglobin C Crystals Not Reportable 04/19/19 15:19 Schistocytes Not Reportable 04/19/19 15:19 Malaria parasites Not Reportable 04/19/19 15:19 Facundo Bodies Not Reportable 04/19/19 15:19 Hem Pathologist Commnt No 04/19/19 15:19 PT 15.8 Sec. (12.2-14.9) H 04/18/19 08:28 INR 1.24 (0.87-1.13) H 04/18/19 08:28 ABG pH 7.359 pH Units (7.350-7.450) 04/18/19 13:06 ABG pCO2 47.3 mm Hg 04/18/19 13:06 ABG pO2 143.7 mm Hg (80.0-90.0) H 04/18/19 13:06 ABG HCO3 26.0 mmol/L (20.0-26.0) 04/18/19 13:06 ABG O2 Saturation 98.7 % (95.0-99.0) 04/18/19 13:06 ABG O2 Content 13.8 (0.0-44) 04/17/19 05:07 ABG Base Excess 0.3 mmol/L (-2.0-3.0) 04/18/19 13:06 ABG Hemoglobin 9.4 gm/dl (12.0-16.0) L 04/18/19 13:06 ABG Carboxyhemoglobin 2.1 % (0.0-5.0) 04/18/19 13:06 ABG Methemoglobin 0.5 % (0.0-1.5) 04/18/19 13:06 Oxyhemoglobin 96.1 % (95.0-99.0) 04/18/19 13:06 FiO2 36 % 04/18/19 13:06 Sodium 137 mmol/L (137-145) 04/19/19 15:30 Potassium 3.3 mmol/L (3.6-5.0) L 04/19/19 15:30 Chloride 95.1 mmol/L (98-107) L 04/19/19 15:30 Carbon Dioxide 24 mmol/L (22-30) 04/19/19 15:30 Anion Gap 21 mmol/L 04/19/19 15:30 BUN 22 mg/dL (7-17) H 04/19/19 15:30 Creatinine 4.0 mg/dL (0.7-1.2) H 04/19/19 15:30 Estimated GFR 14 ml/min 04/19/19 15:30 BUN/Creatinine Ratio 6 % 04/19/19 15:30 Glucose 184 mg/dL (65-100) H 04/19/19 15:30 POC Glucose 95 (70-105) 04/20/19 07:51 Calcium 8.7 mg/dL (8.4-10.2) 04/19/19 15:30 Phosphorus 3.90 mg/dL (2.5-4.5) 04/19/19 15:30 Total Bilirubin 0.90 mg/dL (0.1-1.2) 04/19/19 15:30 AST 17 units/L (5-40) 04/19/19 15:30 ALT 12 units/L (7-56) 04/19/19 15:30 Alkaline Phosphatase 87 units/L (35-129) 04/19/19 15:30 Total Protein 7.8 g/dL (6.3-8.2) 04/19/19 15:30 Albumin 4.2 g/dL (3.9-5) 04/19/19 15:30 Albumin/Globulin Ratio 1.2 % 04/19/19 15:30 Lipase 12 units/L (13-60) L 04/14/19 12:07 PTH Intact 507.0 pg/mL (15-65) H 04/19/19 15:29 Hepatitis A IgM Ab Non-reactive (NonReactive) 04/14/19 17:30 Hep Bs Antigen Non-reactive (Negative) 04/14/19 17:30 Hep B Core IgM Ab Non-reactive (NonReactive) 04/14/19 17:30 Hepatitis C Antibody Non-reactive (NonReactive) 04/14/19 17:30 Active Medications - Current Medications Current Medications: Generic Name Dose Route Start Last Admin Trade Name Freq PRN Reason Stop Dose Admin Acetaminophen 650 mg 04/14/19 13:14 04/16/19 13:50 Tylenol PO 650 mg Q4H PRN Administration Pain MILD(1-3)/Fever >100.5/GROVE Aspirin 325 mg 04/15/19 10:00 04/19/19 09:56 Aspirin PO 325 mg DAILY ABDIEL Administration Dextrose 0 ml 04/16/19 11:00 D50w (25gm) Syringe IV ONCE ABDIEL Sodium Chloride 100 mls @ 999 mls/hr 04/19/19 09:19 Nacl 0.9% IV NAOMI PRN Hypotension Isosorbide Mononitrate 60 mg 04/15/19 10:00 04/19/19 09:56 Imdur PO 60 mg QDAY ABDIEL Administration Ondansetron HCl 4 mg 04/14/19 13:14 Zofran IV Q8H PRN Nausea And Vomiting Pravastatin Sodium 80 mg 04/14/19 22:00 04/19/19 22:33 Pravachol PO 80 mg QHS ABDIEL Administration Sodium Chloride 10 ml 04/14/19 22:00 04/19/19 22:37 Sodium Chloride Flush Syringe 10 Ml IV 10 ml BID ABDIEL Administration Sodium Chloride 10 ml 04/14/19 13:14 Sodium Chloride Flush Syringe 10 Ml IV PRN PRN LINE FLUSH Nutrition/Malnutrition Assess - Dietary Evaluation Nutrition/Malnutrition Findings: Nutrition Notes Start: 04/18/19 11:09 Freq: Status: Active Protocol: Document 04/18/19 11:10 LM (Rec: 04/18/19 11:43 LM [id number]) Nutrition Notes Need for Assessment generated from: MD Order Initial or Follow up Assessment Current Diagnosis CKD (stage V CKD),Diabetes, Hypertension,Heart Failure, Stroke Other Pertinent Diagnosis Dementia, asthma, DM ulcer of R heel and L calf Current Diet Renal Labs/Tests Reviewed Pertinent Medications Reviewed Height 5 ft 2 in Weight 72.9 kg [place] Body Weight (kg) 50.00 BMI 29.4 Subjective/Other Information MD consult for ONS. Pt hesitant to answer questions. Pt stated she did not eat breakfast this AM. Observed breakfast tray untouched. Pt unable to answer how she was eating LOOM CHANGER, her UBW, or any wt loss. Pt with DM ulcer of the L calf and R heel. Burn Absent Trauma Absent GI Symptoms None Minimum of two criteria No Reduced Surgical Forceps Fabricator Strength Measurably Reduced (severe) #2 Nutrition Diagnosis Increased nutrient needs ( specify in comment below) Comments: Protein Etiology wound healing As Evidenced by Signs and Symptoms Pt with DM ulcer of the L calf and R heel #1 Nutrition Diagnosis Inadequate oral intake Etiology Dementia, chronic illness As Evidenced by Signs and Symptoms pt not eating breakfast Is patient on ventilator? No Is Patient Ambulatory and/or Out of Bed No REE-([facility]-confined to bed) 1495.776 Kcal/Kg value to use for calculation 17 Approximate Energy Requirements Using 1239 kcal/Kg Calculation Used for Recommendations Kcal/kg Additional Notes Protein: >73g (>1.2g/kg AdjBW 61kg) Fluid: 1-1.5 L/day or per MD Nutrition Intervention Change Diet Order: Continue renal diet Add Supplement/Snack (indicate name/kcal Nepro BID /protein ) Provides kCal: 850 Provides Protein (gm) 38 Goal #1 Meet at least 75% of energy and portein needs via PO and ONS Goal #2 wound healing Anticipated Discharge Needs: renal diet Follow-Up By: 04/20/19 Additional Comments F/U for PO/ONS intakes and tolerance
--- NOTE | 2019-04-20 09:15 | Progress Note ---
Assessment and Plan Patient awake and more alert. She is on 2 litres with an O2 saturation of 99%. MAP 89.. Patient is afebrile without leukocytosis. No complaint of chest pain or shortness of breath at rest to day. Chest X ray 04/17/2019 showed Small right pleural effusion. No interstitial pulmonary edema identified. Stable cardiomegaly. ABG 04/18/2019 on FiO2 36% ABG pH 7.359 pH Units (7.350-7.450) 04/18/19 13:06 ABG pCO2 47.3 mm Hg 04/18/19 13:06 ABG pO2 143.7 mm Hg (80.0-90.0) H 04/18/19 13:06 ABG O2 Saturation 98.7 % (95.0-99.0) 04/18/19 13:06 - Patient Problems (1) Acidosis Current Visit: Yes Status: Acute Plan to address problem: Patient's Respiratory Acidosis is improving. last PCO2 is 47 (2) CHF (congestive heart failure) Current Visit: Yes Status: Acute Qualifiers: Heart failure type: diastolic Heart failure chronicity: chronic Qualified Code(s): I50.32 - Chronic diastolic (congestive) heart failure Plan to address problem: Management per Cardiology (3) Diabetes Current Visit: Yes Status: Acute Plan to address problem: Management per Primary Care (4) ESRD needing dialysis Current Visit: Yes Status: Acute Plan to address problem: Management per Nephrology (5) Hyperkalemia Current Visit: Yes Status: Acute Plan to address problem: Hyperkalemia improved Last potassium is 3.3 Subjective Date of service: 04/20/19 Principal diagnosis: Hyperkalemia, volume overload, end-stage renal disease Interval history: Patient awake and more alert. She is on 2 litres with an O2 saturation of 99%. MAP 89.. Patient is afebrile without leukocytosis. No complaint of chest pain or shortness of breath at rest to day.Chest X ray 04/17/2019 showed Small right pleural effusion. No interstitial pulmonary edema identified. Stable cardiomegaly. ABG 04/18/2019 on FiO2 36% ABG pH 7.359 pH Units (7.350-7.450) 04/18/19 13:06 ABG pCO2 47.3 mm Hg 04/18/19 13:06 ABG pO2 143.7 mm Hg (80.0-90.0) H 04/18/19 13:06 ABG O2 Saturation 98.7 % (95.0-99.0) 04/18/19 13:06 Objective Vital Signs - 12hr 04/19/19 04/19/19 04/19/19 21:30 21:32 21:37 Temperature Pulse Rate 73 75 Pulse Rate [ 67 From Monitor] Respiratory 14 18 20 Rate Blood Pressure 133/62 133/62 O2 Sat by Pulse 100 100 100 Oximetry 04/19/19 04/19/19 04/19/19 21:42 22:00 22:30 Temperature Pulse Rate 69 70 Pulse Rate [ From Monitor] Respiratory 13 12 Rate Blood Pressure 133/62 116/43 O2 Sat by Pulse 100 100 100 Oximetry 04/19/19 04/19/19 04/20/19 23:00 23:30 00:00 Temperature 98.1 F Pulse Rate 73 67 70 Pulse Rate [ 70 From Monitor] Respiratory 14 12 20 Rate Blood Pressure 125/94 124/54 O2 Sat by Pulse 100 100 100 Oximetry 04/20/19 04/20/19 04/20/19 01:00 02:00 03:00 Temperature Pulse Rate 70 69 72 Pulse Rate [ From Monitor] Respiratory 13 14 12 Rate Blood Pressure 102/57 102/57 97/56 O2 Sat by Pulse 100 100 Oximetry 04/20/19 04/20/19 04/20/19 03:47 04:00 05:00 Temperature 98.7 F Pulse Rate 73 78 Pulse Rate [ 70 From Monitor] Respiratory 15 12 Rate Blood Pressure 97/56 102/65 O2 Sat by Pulse 100 99 Oximetry 04/20/19 04/20/19 04/20/19 06:00 07:00 07:50 Temperature 98.6 F Pulse Rate 71 74 Pulse Rate [ From Monitor] Respiratory 13 14 Rate Blood Pressure 107/68 102/65 O2 Sat by Pulse 100 100 Oximetry 04/20/19 08:00 Temperature Pulse Rate 86 Pulse Rate [ 74 From Monitor] Respiratory 17 Rate Blood Pressure 105/61 O2 Sat by Pulse 95 Oximetry Constitutional: no acute distress, alert Eyes: non-icteric ENT: oropharynx dry Neck: supple, no lymphadenopathy, JVD Effort: mildly labored Ascultation: Bilateral: diminished breath sounds, rales Cardiovascular: regular rate and rhythm Gastrointestinal: normoactive bowel sounds, soft, non-tender Extremities: no cyanosis, no edema Neurologic: unable to assess, other (difficult to arouse) Psychiatric: other (unable to assess due to mental status) CBC and BMP: 04/19/19 15:19 04/19/19 15:30 ABG, PT/INR, D-dimer: ABG ABG pH 7.359 pH Units (7.350-7.450) 04/18/19 13:06 ABG pCO2 47.3 mm Hg 04/18/19 13:06 ABG pO2 143.7 mm Hg (80.0-90.0) H 04/18/19 13:06 ABG O2 Saturation 98.7 % (95.0-99.0) 04/18/19 13:06 PT/INR, D-dimer PT 15.8 Sec. (12.2-14.9) H 04/18/19 08:28 INR 1.24 (0.87-1.13) H 04/18/19 08:28 Abnormal lab findings: Abnormal Labs 04/14/19 04/14/19 04/14/19 12:07 12:07 21:14 WBC 11.4 H RBC 5.08 H MCV 78 L MCH 24 L RDW 25.1 H Plt Count Lymph % (Auto) Greer % (Auto) Lymph # Greer # Seg Neutrophils % Seg Neuts % (Manual) 80.0 H Lymphocytes % (Manual) 9.0 L Monocytes % (Manual) 11.0 H Seg Neutrophils # Man 9.1 H Lymphocytes # (Manual) 1.0 L Monocytes # (Manual) 1.3 H PT INR ABG pH ABG pO2 ABG HCO3 ABG Hemoglobin Sodium 135 L Potassium 8.0 H* Chloride 86.4 L Carbon Dioxide 12 L BUN 109 H Creatinine 10.8 H Glucose POC Glucose 121 H Calcium Total Bilirubin 2.10 H Alkaline Phosphatase 130 H Total Protein 9.0 H Albumin Lipase 12 L PTH Intact 04/15/19 04/15/19 04/15/19 08:14 10:06 11:40 WBC RBC MCV MCH RDW Plt Count Lymph % (Auto) Greer % (Auto) Lymph # [place] # Seg Neutrophils % Seg Neuts % (Manual) Lymphocytes % (Manual) Monocytes % (Manual) Seg Neutrophils # Man Lymphocytes # (Manual) Monocytes # (Manual) PT INR ABG pH ABG pO2 ABG HCO3 ABG Hemoglobin Sodium 135 L Potassium 5.2 H D Chloride 95.7 L Carbon Dioxide 18 L BUN 71 H Creatinine 8.2 H Glucose 107 H POC Glucose 124 H 114 H Calcium 8.0 L D Total Bilirubin Alkaline Phosphatase Total Protein Albumin Lipase PTH Intact 04/15/19 04/15/19 04/16/19 15:45 21:34 05:36 WBC RBC MCV 78 L MCH 24 L RDW 24.8 H Plt Count 103 L Lymph % (Auto) 9.5 L Greer % (Auto) 13.4 H Lymph # 0.8 L Greer # 1.1 H Seg Neutrophils % 75.8 H Seg Neuts % (Manual) Lymphocytes % (Manual) Monocytes % (Manual) Seg Neutrophils # Man Lymphocytes # (Manual) Monocytes # (Manual) PT INR ABG pH ABG pO2 ABG HCO3 ABG Hemoglobin Sodium Potassium Chloride Carbon Dioxide BUN Creatinine Glucose POC Glucose 145 H 120 H Calcium Total Bilirubin Alkaline Phosphatase Total Protein Albumin Lipase PTH Intact 04/16/19 04/16/19 04/16/19 05:36 11:12 16:42 WBC RBC MCV MCH RDW Plt Count Lymph % (Auto) Greer % (Auto) Lymph # [place] # Seg Neutrophils % Seg Neuts % (Manual) Lymphocytes % (Manual) Monocytes % (Manual) Seg Neutrophils # Man Lymphocytes # (Manual) Monocytes # (Manual) PT INR ABG pH ABG pO2 ABG HCO3 ABG Hemoglobin Sodium Potassium 6.9 H* D Chloride 92.5 L Carbon Dioxide 20 L BUN 79 H Creatinine 9.0 H Glucose POC Glucose 177 H 168 H Calcium 8.2 L Total Bilirubin Alkaline Phosphatase Total Protein Albumin 3.8 L Lipase PTH Intact 04/16/19 04/17/19 04/17/19 23:04 04:52 05:07 WBC RBC MCV MCH RDW Plt Count Lymph % (Auto) Gre[place] % (Auto) Lymph # [place] # Seg Neutrophils % Seg Neuts % (Manual) Lymphocytes % (Manual) Monocytes % (Manual) Seg Neutrophils # Man Lymphocytes # (Manual) Monocytes # (Manual) PT INR ABG pH 7.319 L ABG pO2 137.3 H ABG HCO3 28.1 H ABG Hemoglobin 10.0 L Sodium Potassium Chloride 96.1 L Carbon Dioxide BUN 32 H Creatinine 5.7 H Glucose 101 H POC Glucose 128 H Calcium 8.0 L Total Bilirubin Alkaline Phosphatase Total Protein Albumin Lipase PTH Intact 04/17/19 04/17/19 04/18/19 18:23 22:54 08:28 WBC RBC MCV 77 L MCH 25 L RDW 24.9 H Plt Count 93 L Lymph % (Auto) Greer % (Auto) Lymph # [place] # Seg Neutrophils % Seg Neuts % (Manual) 72.0 H Lymphocytes % (Manual) 13.0 L Monocytes % (Manual) 14.0 H Seg Neutrophils # Man Lymphocytes # (Manual) Monocytes # (Manual) 1.3 H PT INR ABG pH ABG pO2 ABG HCO3 ABG Hemoglobin Sodium Potassium Chloride Carbon Dioxide BUN Creatinine Glucose POC Glucose 318 H 117 H Calcium Total Bilirubin Alkaline Phosphatase Total Protein Albumin Lipase PTH Intact 04/18/19 04/18/19 04/18/19 08:28 11:43 13:06 WBC RBC MCV MCH RDW Plt Count Lymph % (Auto) Greer % (Auto) Lymph # [place] # Seg Neutrophils % Seg Neuts % (Manual) Lymphocytes % (Manual) Monocytes % (Manual) Seg Neutrophils # Man Lymphocytes # (Manual) Monocytes # (Manual) PT 15.8 H INR 1.24 H ABG pH ABG pO2 143.7 H ABG HCO3 ABG Hemoglobin 9.4 L Sodium Potassium Chloride Carbon Dioxide BUN Creatinine Glucose POC Glucose 202 H Calcium Total Bilirubin Alkaline Phosphatase Total Protein Albumin Lipase PTH Intact 04/18/19 04/18/19 04/18/19 17:29 18:23 22:20 WBC RBC MCV MCH RDW Plt Count Lymph % (Auto) Gre[place] % (Auto) Lymph # [place] # Seg Neutrophils % Seg Neuts % (Manual) Lymphocytes % (Manual) Monocytes % (Manual) Seg Neutrophils # Man Lymphocytes # (Manual) Monocytes # (Manual) PT INR ABG pH ABG pO2 ABG HCO3 ABG Hemoglobin Sodium Potassium Chloride Carbon Dioxide BUN Creatinine Glucose 167 H POC Glucose > 500 H 209 H Calcium Total Bilirubin Alkaline Phosphatase Total Protein Albumin Lipase PTH Intact 04/19/19 04/19/19 04/19/19 09:57 11:40 15:19 WBC RBC MCV MCH 25 L RDW 26.2 H Plt Count 106 L Lymph % (Auto) Greer % (Auto) Lymph # [place] # Seg Neutrophils % Seg Neuts % (Manual) 73.0 H Lymphocytes % (Manual) 12.0 L Monocytes % (Manual) 11.0 H Seg Neutrophils # Man Lymphocytes # (Manual) 1.0 L Monocytes # (Manual) 0.9 H PT INR ABG pH ABG pO2 ABG HCO3 ABG Hemoglobin Sodium Potassium Chloride Carbon Dioxide BUN Creatinine Glucose POC Glucose 171 H 151 H Calcium Total Bilirubin Alkaline Phosphatase Total Protein Albumin Lipase PTH Intact 04/19/19 04/19/19 15:29 15:30 WBC RBC MCV MCH RDW Plt Count Lymph % (Auto) [place] % (Auto) Lymph # [place] # Seg Neutrophils % Seg Neuts % (Manual) Lymphocytes % (Manual) Monocytes % (Manual) Seg Neutrophils # Man Lymphocytes # (Manual) Monocytes # (Manual) PT INR ABG pH ABG pO2 ABG HCO3 ABG Hemoglobin Sodium Potassium 3.3 L Chloride 95.1 L Carbon Dioxide BUN 22 H Creatinine 4.0 H Glucose 184 H POC Glucose Calcium Total Bilirubin Alkaline Phosphatase Total Protein Albumin Lipase PTH Intact 507.0 H Chest x-ray: report reviewed, image reviewed Additional Studies: CHEST 1 VIEW 04/17/19 INDICATION / CLINICAL INFORMATION: Pulmonary edema. COMPARISON: 02/05/2016 FINDINGS: SUPPORT DEVICES: Pacemaker/defibrillator device stable in position. HEART / MEDIASTINUM: Enlarged, stable. LUNGS / PLEURA: Small right pleural effusion is present. Left lung is well expanded and clear. No interstitial pulmonary edema. No pneumothorax. ADDITIONAL FINDINGS: No significant additional findings. IMPRESSION: 1. Small right pleural effusion. No interstitial pulmonary edema identified. 2. Stable cardiomegaly.
[2019-04-20] MEDS: ASPIRIN 325 MG TAB PO SCH (09:53)
[2019-04-20] MEDS ORDERED: DEXTROSE 50% IN WATER (25GM) 50 ML SYRINGE IV PRN (13:28)
[2019-04-20] MEDS ORDERED: INSULIN LISPRO 100 UNIT/ML SUB-Q SCH (14:00)
--- NOTE | 2019-04-20 14:19 | Progress Note ---
Subjective Principal diagnosis: Hyperkalemia, volume overload, end-stage renal disease Objective - Vital Signs Vital signs: Vital Signs - 12hr 04/20/19 04/20/19 04/20/19 03:00 03:47 04:00 Temperature 98.7 F Pulse Rate 72 73 Pulse Rate [ 70 From Monitor] Respiratory 12 15 Rate Blood Pressure 97/56 97/56 O2 Sat by Pulse 100 Oximetry 04/20/19 04/20/19 04/20/19 05:00 06:00 07:00 Temperature Pulse Rate 78 71 74 Pulse Rate [ From Monitor] Respiratory 12 13 14 Rate Blood Pressure 102/65 107/68 102/65 O2 Sat by Pulse 99 100 100 Oximetry 04/20/19 04/20/19 04/20/19 07:50 08:00 09:00 Temperature 98.6 F Pulse Rate 86 73 Pulse Rate [ 74 From Monitor] Respiratory 17 13 Rate Blood Pressure 105/61 118/87 O2 Sat by Pulse 95 100 Oximetry 04/20/19 04/20/19 04/20/19 09:37 09:50 10:00 Temperature Pulse Rate 72 75 Pulse Rate [ From Monitor] Respiratory 20 Rate Blood Pressure 108/85 108/85 O2 Sat by Pulse 100 99 Oximetry 04/20/19 04/20/19 11:00 12:00 Temperature 100.0 F H Pulse Rate 77 74 Pulse Rate [ 70 From Monitor] Respiratory 16 13 Rate Blood Pressure 101/47 99/49 O2 Sat by Pulse 100 100 Oximetry - Lab 04/19/19 15:19 04/19/19 15:30 Most recent lab results ABG pH 7.359 pH Units (7.350-7.450) 04/18/19 13:06 ABG pCO2 47.3 mm Hg 04/18/19 13:06 ABG pO2 143.7 mm Hg (80.0-90.0) H 04/18/19 13:06 ABG HCO3 26.0 mmol/L (20.0-26.0) 04/18/19 13:06 ABG O2 Saturation 98.7 % (95.0-99.0) 04/18/19 13:06 Calcium 8.7 mg/dL (8.4-10.2) 04/19/19 15:30 Phosphorus 3.90 mg/dL (2.5-4.5) 04/19/19 15:30 Medications & Allergies - Medications Allergies/Adverse Reactions: Allergies No Known Allergies Allergy (Verified 06/02/14 09:28) Home Medications: Home Medications Medication Instructions Recorded Confirmed Last Taken Type Aspirin 325 mg PO DAILY 06/02/14 04/16/19 01/08/16 History 325 MG Lovastatin [Altoprev] 40 mg PO DAILY 06/02/14 04/16/19 01/08/16 History 40 MG ISOSORBIDE MONOnitrate [Imdur ER] 60 mg PO QDAY #30 tablet 01/11/16 04/16/19 Unknown Rx Active Medications: Generic Name Dose Route Start Last Admin Trade Name Freq PRN Reason Stop Dose Admin Acetaminophen 650 mg 04/14/19 13:14 04/16/19 13:50 Tylenol PO 650 mg Q4H PRN Administration Pain MILD(1-3)/Fever >100.5/GROVE Aspirin 325 mg 04/15/19 10:00 04/20/19 09:53 Aspirin PO 325 mg DAILY ABDIEL Administration Dextrose 0 ml 04/16/19 11:00 D50w (25gm) Syringe IV ONCE ABDIEL Dextrose 50 ml 04/20/19 13:28 D50w (25gm) Syringe IV Q30MIN PRN Hypoglycemia Protocol Sodium Chloride 100 mls @ 999 mls/hr 04/19/19 09:19 Nacl 0.9% IV NAOMI PRN Hypotension Insulin Human Lispro 0 unit 04/20/19 14:00 04/20/19 14:03 Humalog SUB-Q 2 unit ACHS ABDIEL Administration Protocol Isosorbide Mononitrate 60 mg 04/15/19 10:00 04/20/19 09:50 Imdur PO 60 mg QDAY ABDIEL Administration Ondansetron HCl 4 mg 04/14/19 13:14 Zofran IV Q8H PRN Nausea And Vomiting Pravastatin Sodium 80 mg 04/14/19 22:00 04/19/19 22:33 Pravachol PO 80 mg QHS ABDIEL Administration Sodium Chloride 10 ml 04/14/19 22:00 04/20/19 09:51 Sodium Chloride Flush Syringe 10 Ml IV 10 ml BID ABDIEL Administration Sodium Chloride 10 ml 04/14/19 13:14 Sodium Chloride Flush Syringe 10 Ml IV PRN PRN LINE FLUSH
[2019-04-20 14:50] VITALS: BP 110/52
== END 2019-04-20 16:15 | DRG 291 ==
LOC: ED 10:28 → 3A 13:14 → OBSVTOIN 04-15 12:14 → CC1 04-16 12:03 → IMCU 04-18 17:28
PROVIDERS: ADMIT Internal Medicine; ATTEND Internal Medicine
PROC: 5A1D70Z Performance of Urinary Filtration, Intermittent, Less than 6 Hours Per Day (ICD-10-PCS; 2019-04-14)
PROC: 5A1D70Z Performance of Urinary Filtration, Intermittent, Less than 6 Hours Per Day (ICD-10-PCS; 2019-04-16)
PROC: 4A033R1 Measurement of Arterial Saturation, Peripheral, Percutaneous Approach (ICD-10-PCS; principal; 2019-04-17)
PROC: 5A1D70Z Performance of Urinary Filtration, Intermittent, Less than 6 Hours Per Day (ICD-10-PCS; 2019-04-19)
DX: I13.2 Hypertensive heart and chronic kidney disease with heart failure and with stage 5 chronic kidney disease, or end stage renal disease (principal); N18.6 End stage renal disease; G93.41 Metabolic encephalopathy; I50.33 Acute on chronic diastolic (congestive) heart failure; E66.2 Morbid (severe) obesity with alveolar hypoventilation; N25.81 Secondary hyperparathyroidism of renal origin; J81.1 Chronic pulmonary edema; E87.2 Acidosis; E87.5 Hyperkalemia; I42.9 Cardiomyopathy, unspecified; I95.9 Hypotension, unspecified; E87.70 Fluid overload, unspecified; J45.909 Unspecified asthma, uncomplicated; F03.90 Unspecified dementia, unspecified severity, without behavioral disturbance, psychotic disturbance, mood disturbance, and anxiety; E11.22 Type 2 diabetes mellitus with diabetic chronic kidney disease; R79.89 Other specified abnormal findings of blood chemistry; D64.9 Anemia, unspecified; Z68.29 Body mass index [BMI] 29.0-29.9, adult; Z71.3 Dietary counseling and surveillance; Z86.73 Personal history of transient ischemic attack (TIA), and cerebral infarction without residual deficits; Z99.2 Dependence on renal dialysis; Z79.4 Long term (current) use of insulin; Z95.810 Presence of automatic (implantable) cardiac defibrillator; Z83.3 Family history of diabetes mellitus; Z82.49 Family history of ischemic heart disease and other diseases of the circulatory system
CPT/HCPCS: 36415; 36600; 71045; 80048; 80053; 80074; 82803; 82947; 82962; 83690; 83970; 84100; 85007; 85025; 85610; 93005; 93010; 94640; 94760; 96365; 96375; G0378; A9270-GY; J0610; J1815; J2405; J7030; J7040; P9047